=== PATIENT | female | born 1950 | race Caucasian/White ===

== ENCOUNTER → 2017-11-06 09:54 | Outpatient (CLI) | payer MEDICARE, SELFPAY ==
--- NOTE | 2017-11-06 09:57 | BI_ITS ---
MAMMOGRAPHY - BILATERAL SCREENING 3-D LAURENCE SYNTHESIS REASON FOR EXAM: Female, 67 years old. Bilateral Screening 3-D tomosynthesis PERTINENT HISTORY: No significant family history. TECHNIQUE: 2-D mammograms and 3-D Laurence synthesis of the breast (s) were performed. CAD was performed. COMPARISON: October 21, 2016. FINDINGS: The breast composition is heterogeneously dense that can obscure small breast masses. Scattered benign calcifications are seen. No dense spiculated masses or suspicious microcalcifications are identified. No architectural distortion is identified. There is no skin thickening or retraction. There has been no significant change since the prior study. BI/SCREENING MAMM (CAD), BILAT IMPRESSION: No mammographic signs of malignancy. Routine yearly mammograms recommended. ASSESSMENT CATEGORY: BIRADS Category 2: Benign. A letter regarding these results will be sent to the patient by the facility within 30 days. FOLLOW UP RECOMMENDATION: Yearly follow up mammogram recommended. (A) Approximately 10% of breast cancers are not detected by mammography. A normal mammogram should not delay biopsy of a clinically suspicious abnormality. Electronically Signed: Charli Shanks MD at 11:22 EDT , Service support ,
== END ==
PROVIDERS: Family Provider Family Medicine; PCP Family Medicine; Visit Provider Family Medicine
DX: Z12.31 Encounter for screening mammogram for malignant neoplasm of breast (principal)
CPT/HCPCS: 77063; 77067

== ENCOUNTER → 2018-01-16 12:24 | Outpatient (CLI) | payer MEDICARE, SELFPAY | PROVIDERS: Visit Provider Family Medicine | DX: R39.15 Urgency of urination (principal) | CPT/HCPCS: 87077; 87086; 87088; 87186 ==

== ENCOUNTER → 2018-02-06 13:35 | Outpatient (CLI) | payer MEDICARE, SELFPAY | PROVIDERS: Family Provider Family Medicine; PCP Family Medicine; Visit Provider Family Medicine | DX: R31.9 Hematuria, unspecified (principal) | CPT/HCPCS: 87086; 87088 ==

== ENCOUNTER → 2018-02-14 13:42 | Outpatient (CLI) | payer MEDICARE, SELFPAY ==
--- NOTE | 2018-02-14 13:43 | US_ITS ---
STUDY: ULTRASOUND TRANSVAGINAL CLINICAL: Female, 68 years old. PMB - SPOTTING X 4 DAYS TECHNIQUE: Transvaginal COMPARISON: September 27, 2016 FINDINGS: Normal uterine size measuring 4.6 x 3 x 1.6 cm in maximal craniocaudal dimension. There are no myometrial masses. Normal endometrial thickness measuring 4 mm. There is minimal fluid in the endometrial cavity. Normal uterine cervix. Right and left ovary are not visualized. There is no free fluid in the pelvis. US/Transvaginal Non- IMPRESSION: There is minimal fluid in the endometrial cavity. Ovaries are not visualized. Electronically Signed: Gee Chacko MD at 16:46 EDT , Service support ,
== END ==
PROVIDERS: Family Provider Family Medicine; PCP Family Medicine; Visit Provider Family Medicine
DX: N95.0 Postmenopausal bleeding (principal)
CPT/HCPCS: 76830

== ENCOUNTER 2018-03-17 16:41 | Emergency (ER) | payer MEDICARE, SELFPAY ==
[2018-03-17 16:42] VITALS: BP 119/68; PULSE 82; RESP 18; TEMP 37.3; O2SAT 95; BMI 28.8
[2018-03-17] MEDS: HYDROcodone Bitartrate/Apap 5/325 Tablet PO (18:36)
--- NOTE | 2018-03-17 21:15 | ED.VISSUMM ---
- ER Visit Summary Date of Service: 03/17/18 Chief Complaint: Patient presents after fall History of Present Illness: The patient is a 68 F who was on a ladder and fell backwards. She was on the second rung. She landed on her deck. She was dazed and complained of nausea. She presently complains of worsening low back pain. She denies double vision, blurred vision loss of vision. Denies ringing in her ears. She denies trouble with speech or swallowing. She denies neck pain. She denies any paresthesia, anesthesia motors. She denies nausea vomiting. She denies any bowel bladder dysfunction. She denies saddle paresthesia or anesthesia. She denies foot drop. Physical Examination: Vital signs noted and normal. There is no clinical findings of basal skull fracture. Pupils equal round reactive. Extra muscle intact. No septal deviation hematoma. No hemotympanum. No CSF otorrhea or rhinorrhea. Trachea midline. No cervical spine tenderness and full active range of motion without discomfort. Heart is regular without murmur, gallop or rub. Lungs are clear auscultation. There is no pain the patient the pelvis. There is pain elevation of the upper lumbar vertebral spinous process. GCS is 15. Patient is alert and oriented ?3. Motor is 5/5. Sensation is intact. DTRs are symmetric without clonus or Babinski. Cranial nerves II through XII are intact. Finger to nose to finger was performed adequately. Test Results: CT of the head reviewed by me interpreted by radiologist as negative for any acute pathology. Three-view x-ray of the LS spine reveals a compression fracture of L1. Suspect acute since she complains of pain in this area. Emergency Department Course and Treatment: X-ray of the LS-spine was obtained to evaluate for compression fracture. CT of the head was obtained since she was dazed based on the [place] CT head rule. Treatment Plan: Appropriate home-going instruction and pain medicine. Disposition: Discharged home with spouse Impression: 1. Closed head injury with transient altered sensorium 2. Compression fracture L1 This note was generated with [employer] software. It may contain incorrect words, spelling, and punctuation that were not noted in review of the chart prior to signing ED Disposition - Plan for ED Patient: Disposition: Home or Assisted Living Chief Complaint: Back Prescriptions: Oxycodone HCl/Acetaminophen [Percocet 5/325] 1 tab PO Q6H PRN PRN 5 Days #20 tab PRN Reason: Pain Referrals: Ilda Alvarez MD [Primary Care Provider] - 10-14 Days if not better Additional Instructions: Take Metamucil 3 times a day while you are taking the Percocet for your back pain. Otherwise, she will become constipated.
--- NOTE | 2018-03-17 21:22 | ED.VISSUMM ---
- ER Visit Summary Date of Service: 03/17/18 Chief Complaint: [] History of Present Illness: The patient is a 68 F [] Physical Examination: [] Test Results: [] Emergency Department Course and Treatment: [] Treatment Plan: [] Disposition: [] Impression: [] This note was generated with [employer] dictation software. It may contain incorrect words, spelling, and punctuation that were not noted in review of the chart prior to signing ED Disposition - Plan for ED Patient: Disposition: Home or Assisted Living Chief Complaint: Back Instructions: ED Fx Comp Vertebral Prescriptions: Oxycodone HCl/Acetaminophen [Percocet 5/325] 1 tab PO Q6H PRN PRN 5 Days #20 tab PRN Reason: Pain Referrals: Ilda Alvarez MD [Primary Care Provider] - 10-14 Days if not better Additional Instructions: Take Metamucil 3 times a day while you are taking the Percocet for your back pain. Otherwise, she will become constipated.
[2018-03-17 21:52] VITALS: RESP 16
== END 2018-03-17 21:52 | disposition home or self-care (01) ==
PROVIDERS: Emergency Provider Emergency Medicine; Family Provider Family Medicine; PCP Family Medicine
DX: S32.019A Unspecified fracture of first lumbar vertebra, initial encounter for closed fracture (principal); S09.90XA Unspecified injury of head, initial encounter; W11.XXXA Fall on and from ladder, initial encounter; Y93.9 Activity, unspecified; Y92.9 Unspecified place or not applicable; E78.00 Pure hypercholesterolemia, unspecified; Z79.82 Long term (current) use of aspirin
CPT/HCPCS: 70450; 72100; 99282

== ENCOUNTER → 2018-04-04 07:22 | Outpatient (CLI) | payer MEDICARE, SELFPAY ==
--- NOTE | 2018-04-04 10:04 | NEURO ---
NCS and/or EMG Patient Report Ordering Doctor: Ilda Alvarez DATE OF SERVICE: 04/04/18 This is a right upper extremity EMG and nerve conduction study performed on this 68-year-old female without a history of diabetes or neck pain. She has had right shoulder pain and had a cortisone injection in her right shoulder approximately 1-1/2 years ago. Subsequently, 1 month later she began to experience decreased sensation in the ulnar aspect of her right forearm and fifth digit. right upper extremity sensory and motor nerve conduction studies performed. There is very mild drop of the ulnar motor amplitude across the elbow with slowing of conduction velocity across the elbow which again is very mild. Overall the numbers are within the normal range and the distal latency is normal. The ulnar sensory responses are normal. The median motor and sensory and the radial sensory responses normal. Median and ulnar F-wave latencies are within the normal range. Right upper extremity needle electromyography is performed. Muscles evaluated included the first dorsal interosseous, abductor pollicis brevis, abductor digiti quinti, brachioradialis, biceps, triceps and deltoid muscles. Muscles in the ulnar distribution including the first dorsal interosseous and abductor digiti quinti demonstrated early recruitment with large motor units but there is no pathologic spontaneous activity. All other muscles demonstrated normal insertional activity with absence of pathologic spontaneous activity. Motor unit potential recruitment pattern and amplitude was normal in all muscles otherwise. 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 Are not active features this appears to be chronic.
== END ==
PROVIDERS: Family Provider Family Medicine; PCP Family Medicine; Visit Provider Family Medicine
DX: R20.2 Paresthesia of skin (principal)
CPT/HCPCS: 95886; 95910

== ENCOUNTER → 2018-05-22 10:53 | Outpatient (CLI) | payer MEDICARE, SELFPAY ==
--- NOTE | 2018-05-22 10:58 | BD_ITS ---
STUDY: DUAL ENERGY X-RAY ABSORPTIOMETRY / DXA REASON FOR EXAM: Female, 68 years old. The patient is postmenopausal. Loss of height. TECHNIQUE: Bone Mineral Density (BMD) measurements of lumbar spine and bilateral hips were obtained. COMPARISON: None. FINDINGS: Lumbar Spine (L1-L4): g/cm2 (0.990) / T-score (-1.5) / Z-score (0.2) Findings are suggestive of osteopenia with a moderate fracture risk. Left Femur Total: g/cm2 (0.881) / T-score (-1.0) / Z-score (0.5) Left Femoral Neck: g/cm2 (0.752) / T-score (-2.1) / Z-score (-0.4) Right Femur Total: g/cm2 (0.892) / T-score (-0.9) / Z-score (0.6) Right Femoral Neck: g/cm2 (0.845) / T-score (-1.4) / Z-score (0.3) BD/Dexa Bone Density Study IMPRESSION: The patient is considered osteopenic as outlined below according to World Javi Organization (WHO) criteria with a moderate fracture risk. Reference Information: The T-score is the number of standard deviations above or below the standard which is normal for young adults at their peak bone mineral density. The World Health Organization (WHO) interprets the T-scores as follows: Above -1 Normal bone density Between -1 and -2.5 Osteopenia Equal to / or below -2.5 Osteoporosis As a practical clinical guideline, osteopenia may be graded as follows: Mild -1 through -1.5 Moderate -1.6 through -2.0 Severe -2.1 through -2.4 The Z-score is the number of standard deviations above or below age-matched controls. A Z-score of less than -1.5 would be considered abnormal. References: 1. NIH Osteoporosis and Related Bone Diseases http://www.osteo.org 2. International Society for Clinical Densitometry http://www.iscd.org 3. National Osteoporosis Foundation http://www.nof.org Electronically Signed: Mitchell Samuel MD at 9:24 EST Tel [phone], Service support ,
== END ==
PROVIDERS: Family Provider Family Medicine; PCP Family Medicine; Referring Provider Family Medicine; Visit Provider Family Medicine
DX: S32.000A Wedge compression fracture of unspecified lumbar vertebra, initial encounter for closed fracture (principal)
CPT/HCPCS: 77080

== ENCOUNTER → 2018-06-12 15:53 | Outpatient (CLI) | payer MEDICARE, SELFPAY ==
--- OUTSIDE RECORDS SUMMARY | 2018-08-08 08:53 | XMS RPT_ITS ---
:1950 Author Organization [facility] Care Team Providers Name Role Phone Ilda Alvarez Attending Unavailable Jovi, Chris Primary Care Unavailable Jolliff, Ilda Attending Unavailable Reddy, Franc Attending Unavailable Reddy, Franc Referring Unavailable Jolliff, Ilda Primary Care Unavailable Reddy, Franc Attending Unavailable Jolliff, Ilda Primary Care Unavailable Jolliff, Ilda Primary Care Unavailable Kimball, Pankaj Attending Unavailable Jolliff, Ilda Attending Unavailable Jolliff, Ilda Referring Unavailable Jolliff, Ilda Primary Care Unavailable Jolliff, Ilda Attending Unavailable Jolliff, Ilda Referring Unavailable Jolliff, Ilda Primary Care Unavailable Tickton, Nikki Attending Unavailable Tickton, Nikki Referring Unavailable Jolliff, Ilda Primary Care Unavailable Eliazar, Martin Attending Unavailable Jolliff, Ilda Referring Unavailable Eliazar, Hollywood Attending Unavailable Jovi, Chris Referring Unavailable Jovi, Chris Primary Care Unavailable PROBLEMS PROBLEMS DATE TYPE CONDITION / CODE ATTENDING STATUS SOURCE Unknown Z98.890 - Other specified Eliazar, Hollywood Active [facility] postprocedural states / Community Z98.890(ICD-10) Hospital Repository Unknown R07.9 - Chest pain, Eliazar, Hollywood Active [facility] unspecified / Community R07.9(ICD-10) Hospital Repository Unknown E78.5 - Hyperlipidemia, Eliazar, Martin Active [facility] unspecified / Community E78.5(ICD-10) Hospital Repository Unknown S32.000A - Wedge Jochon, Ilda Active [facility] compression fracture of Community unspecified lumbar Hospital vertebra, initial Repository encounter for closed fracture / S32.000A(ICD-10) Unknown R20.2 - Paresthesia of Ilda Alvarez Active [place] 8 skin / R20.2(ICD-10) [facility]ly [facility] Hospital Repository Unknown S32.010A - Wedge Kimball, Pankaj Active [facility] 8 compression fracture of Community first lumbar vertebra, Hospital initial encounter for Repository closed fracture / S32.010A(ICD-10) Unknown R39.15 - Urgency of Ilda Alvarez Active [facility] 8 urination / Community R39.15(ICD-10) Hospital Repository Unknown E78.00 - Pure Eliazar, Hollywood Active [facility] 7 hypercholesterolemia, Community unspecified / Hospital E78.00(ICD-10) Repository Unknown E78.0 - Pure Eliazar, Martin Active [facility] 7 hypercholesterolemia / Community E78.0(ICD-10) Hospital Repository PROCEDURES PROCEDURES No Procedure Records FoundRESULTS RESULTS CARDIOLOGY VISIT Observed: 06/19/2018 Status: F Source: [facility] REPORT 10:58 AM [facility] [address] [place] [address] OFFICE VISIT Date of Service: 06/19/18 MR#: [id number] Acct: [id number] Name: VENECIA KAUR Rep #: [id number] : 1950 Provider: Martin Perea MD Age/Sex: 68/F Location: [facility] Status: Signed HPI [facility] Chief Complaint: Follow up Details: VENECIA KAUR, is a 68 F who presents to the office today for a follow-up visit. She is a lady with a history of aortic valve disease with aortic valve replacement in 2009 with a Fariba Garza bovine pericardial valve. She has been doing quite well denying any chest pain or shortness breath or paroxysmal nocturnal dyspnea pedal edema she did relate that a few weeks ago she had a drink of water been down and had significant chest discomfort in the epigastrium. She has not had a recurrence of the above. She has had no dizziness or diaphoresis no near syncope or syncope. Her physical exam today demonstrates clear lung dyer regular rate and rhythm no pedal edema a soft 1/6 systolic murmur noted left sternal border. Intake Vital Signs06/19/18 Height 4 ft 9 in 06/19/18 Weight: 141 lb 06/19/18 Body Mass Index (BMI) 30.4 06/19/18 Blood Pressure 122/78 H 06/19/18 Blood Pressure Location Lt brachial Intake Visit Reasons: 1 Y [employer] Applications Specialist Required: No Accompanied by: none Is patient in pain?: No Allergies tomatoes Allergy (Severe, Uncoded 03/17/18 16:44) unknown Medications ascorbic acid (vitamin C) 1,000 mg tablet 1 g PO QDAY tab 06/20/17 [History Confirmed 06/19/18] aspirin 81 mg tablet,delayed release 81 mg PO QDAY 06/20/17 [History Confirmed 06/19/18] calcium polycarbophil 625 mg tablet 1,250 mg PO QDAY 06/20/17 [History Confirmed 06/19/18] cranberry 400 mg capsule 400 mg PO QDAY 06/20/17 [History Confirmed 06/19/18] multivitamin tablet 1 tab PO QDAY 06/20/17 [History Confirmed 06/19/18] vitamin B complex capsule 1 cap PO QDAY 06/20/17 [History Confirmed 06/19/18] vitamin E (dl, acetate) 1,000 unit capsule 1,000 unit PO QDAY 06/20/17 [History Confirmed 06/19/18] garlic 5,000 mcg tablet 5 mg PO QDAY 06/22/17 [History Confirmed 06/19/18] cinnamon bark 500 mg capsule mg PO DAILY cap 06/19/18 [History Confirmed 06/19/18] [facility] Medical History Hyperlipidemia (Chronic) Ascending aortic aneurysm (Chronic) history of aortic stenosis (Chronic) Surgical History H/O breast biopsy (Resolved) History of appendectomy (Resolved) aortic valve replacement (Chronic) Family History Father No problems noted. Mother , of CHF Diabetes CAD (coronary artery disease) Brother Hx of deep venous thrombosis Social History Smoking Status: Never smoker alcohol intake: never ROS Const Const: Negative for fatigue, weakness, night sweats, excessive sweating, frequent falls, headache(s) or daytime sleepiness Eyes Eyes: Negative for loss of peripheral vision, transient loss of vision, blind spots, double vision or blurry vision ENT ENT: Negative for headache(s), dizziness, balance problems, Nosebleed/epistaxis, tongue swelling or lip swelling Cardio Chest Pain: No Palpitations: No Edema: None Muscle aches with walking: None Resp Respiratory: Negative for SOB at rest, SOB orthopnea\SOB lying down, Cough, paroxysmal nocturnal dyspnea or SOB with activity GI GI: Negative nausea, vomiting, heartburn, black,tarry stools or bright, red blood in stools : Negative for hematuria Musc Musc: Negative for balance problems, muscle aches/ myalgia, muscle weakness or joint pain Skin Skin: Negative non-healing lesions, unusual bruising or rash Neuro Neuro: Negative for weakness, frequent falls, headache(s), double vision, dizziness, lightheadedness, orthostatic symptoms, blurry vision or lack of coordination Santhosh Hematologic/Lymphatic: Negative for easy bruising or easy bleeding Endo Endo: Negative for fatigue, excessive sweating, cold intolerance, heat intolerance, increased thirst/drinking or hair loss Psych Psych: Negative for anxiety or depression Allergy Allergy/Immunology: Negative for throat swelling, Negative for tongue swelling, Negative for hives, Negative for rash, Negative for lip swelling Cardiology Exam Const Appearance: cooperative, healthy appearing, well developed, well groomed and no acute distress Nutritional Appearance: well nourished and average body habitus Orientation: alert, awake and oriented x3 Head Head: normal to inspection, normocephalic and atraumatic Ears: hearing grossly normal bilaterally and external ears normal Nose: external nose normal, nasal mucous membranes and turbinates normal, nares normal, septum normal, no nasal discharge Face and Sinus: face symmetric Mouth: oral mucosae normal, tongue normal, oropharynx normal and moist mucous membranes Teeth and gingiva: dentition normal Throat: posterior oropharynx normal, tonsils normal and uvula midline Eyes General: appearance normal, both eyes and all related structures Eyelids: eyelids normal Conjunctivae: conjunctivae normal Pupils: PERRL, normal by confrontation and accommodation normal EOM: EOM intact bilaterally Neck Neck: normal visual inspection, trachea midline and no JVD JVD: +5 Carotids: normal carotid upstroke and bounding pulses Chest Chest inspection: normal inspection of the chest, symmetric chest movement and normal respiratory effort Auscultation: Bilateral: Clear to Auscultation Cardio Palpation: normal PMI Rate: regular rate Rhythm: regular rhythm Heart sounds: S1 normal, S2 normal and normal, physiologic split S2; negative rub, gallop or murmur Murmur: Grade 1/6 and ZAHRA loudest primary aortic area GI GI: normal to inspection, soft, no hepatosplenomegaly and bowel sounds present Neuro General: alert, awake, oriented x3, no focal sensory deficit, gait normal and moves all extremities Skin Skin: no rashes or lesions noted Extremities Pulses: Normal: Right Femoral Pulse, Left Femoral Pulse, Right Dorsalis Pedis Pulse, Left Dorsalis Pedis Pulse, Right Posterior Tibial Pulse, Left Posterior Tibial Pulse, Right Radial Pulse, Left Radial Pulse Lower Extremity Edema: None: Bilateral Musculoskel Musculoskeletal: No joint tenderness Psych Psychological: normal affect Assessment AND Plan 1. aortic valve replacement 08/25/09, minimally invasive AVR with 21 mm Fariba-Garza bovine pericardial aortic valve at [facility] Plan She is status post aortic valve replacement with a #21 bioprosthetic valve. The plan is to continue antibiotic prophylaxis. I would also recommend that we obtain an echocardiograms and stress echocardiogram to assess the stability of her valve as well as exclude any angina. 2. Hyperlipidemia E78.5 Plan She does have a history of hyperlipidemia. She has been controlling the above with diet. Recent lipid profile has not been obtained. As you know she did have some myalgias with some of her medications. 3. Chest pain R07.9 Plan She has had some chest pain. It is not clear what the above is secondary to. Occasionally it does sound like reflux however she has had it more frequently and it may be appropriate to exclude ischemia before treating her for reflux. Stress myocardial perfusion test will therefore be ordered. 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) Coding Level of Care Code Off vis,est,level 4 Diagnoses aortic valve replacement Hyperlipidemia E78.5 Chest pain R07.9 Coding Level of Care Code Off vis,est,level 4 Diagnoses aortic valve replacement Hyperlipidemia E78.5 Chest pain R07.9 06/19/18 1058 <Electronically signed by Martin Perea MD> Date Martin Perea MD Cosigner Signature: Date (if applicable) CC: Ilda Alvarez MD Observed: 06/12/2018 Status: F Source: [facility] CULTURE, URINE 1:40 PM [facility] Urine Culture ORGANISM 1: Escherichia coli [place] Count >100,000 Escherichia coli: REACTION Amoxacillin/Clavulanic Acid $ 4 S Ampicillin $ >=32 R Ampicillin/Sulbactam $ 16 I Cefazolin $ <=4 S Cefepime $ <=1 S Ceftriaxone $ <=1 S Ciprofloxacin $ <=0.25 S ESBL - Ertapenim $$$ <=0.5 S Gentamicin $ <=1 S Imipenem *NF <=0.25 S Levofloxacin $ <=0.12 S Nitrofurantoin $ <=16 S Piperacillin/Tazobactam $$ <=4 S Tobramycin $ <=1 S Trimethoprim/Sulfametho $ <=20 S (NF) indicates non-formulary drug at [facility]. Approval by Infectious Disease Specialist required before non-formulary drugs may be ordered and/or dispensed. Performed By: #### M100.0650 #### [facility] [address] [place], [address] DEXA BONE DENSITY Observed: 05/22/2018 Status: F Source: [facility] STUDY 10:56 AM [facility] Imaging Services [address] [place] [address] Dexa Bone Density Study MR#: [id number] Acct: [id number] Name: VENECIA KAUR Rep #: [id number] : 1950 F 68 From: Mitchell Samuel MD PCP: Ilda Alvarez MD Status: REG CLI Study: Dexa Bone Density Study Date of Exam: 05/22/18 Exam# [id number] Ordering Dr: Ilda Alvarez MD STUDY: DUAL ENERGY X-RAY ABSORPTIOMETRY / DXA REASON FOR EXAM: Female, 68 years old. The patient is postmenopausal. Loss of height. TECHNIQUE: Bone Mineral Density (BMD) measurements of lumbar spine and bilateral hips were obtained. COMPARISON: None. FINDINGS: Lumbar Spine (L1-L4): g/cm2 (0.990) / T-score (-1.5) / Z-score (0.2) Findings are suggestive of osteopenia with a moderate fracture risk. Left Femur Total: g/cm2 (0.881) / T-score (-1.0) / Z- score (0.5) Left Femoral Neck: g/cm2 (0.752) / T-score (-2.1) / Z- score (-0.4) Right Femur Total: g/cm2 (0.892) / T-score (-0.9) / Z- score (0.6) Right Femoral Neck: g/cm2 (0.845) / T-score (-1.4) / Z-score (0.3) BD/Dexa Bone Density Study IMPRESSION: The patient is considered osteopenic as outlined below according to World Javi Organization (WHO) criteria with a moderate fracture risk. Reference Information: The T-score is the number of standard deviations above or below the standard which is normal for young adults at their peak bone mineral density. The World Health Organization (WHO) interprets the T-scores as follows: Above -1 Normal bone density Between -1 and -2.5 Osteopenia Equal to / or below -2.5 Osteoporosis As a practical clinical guideline, osteopenia may be graded as follows: Mild -1 through -1.5 Moderate -1.6 through -2.0 Severe -2.1 through -2.4 The Z-score is the number of standard deviations above or below age-matched controls. A Z-score of less than -1.5 would be considered abnormal. References: 1. NIH Osteoporosis and Related Bone Diseases http://www.osteo.org 2. International Society for Clinical Densitometry http://www.iscd.org 3. National Osteoporosis Foundation http://www.nof.org Electronically Signed: Mitchell Samuel MD at 9:24 EST Tel [phone], Service support , CC: Ilda Alvarez MD Lcac Operator: Signed NCS AND/OR EMG Observed: 04/04/2018 Status: F Source: [facility] PATIENT 10:21 AM [facility] Pulmonary Services/Neurology [address] [place] [id number] MR#: [id number] Acct: [id number] Name: VENECIA KAUR Rep #: [id number] : 1950 68 From: Gee Ernandez MD Referring Dr: Ilda Alvarez MD Status: REG CLI Ordering Dr: Date: Location: [facility] Sex: F C NCS and/or EMG Patient Report Ordering Doctor: Ilda Alvarez DATE OF SERVICE: 04/04/18 This is a right upper extremity EMG and nerve conduction study performed on this 68-year-old female without a history of diabetes or neck pain. She has had right shoulder pain and had a cortisone injection in her right shoulder approximately 1- 1/2 years ago. Subsequently, 1 month later she began to experience decreased sensation in the ulnar aspect of her right forearm and fifth digit. right upper extremity sensory and motor nerve conduction studies performed. There is very mild drop of the ulnar motor amplitude across the elbow with slowing of conduction velocity across the elbow which again is very mild. Overall the numbers are within the normal range and the distal latency is normal. The ulnar sensory responses are normal. The median motor and sensory and the radial sensory responses normal. Median and ulnar F-wave latencies are within the normal range. Right upper extremity needle electromyography is performed. Muscles evaluated included the first dorsal interosseous, abductor pollicis brevis, abductor digiti quinti, brachioradialis, biceps, triceps and deltoid muscles. Muscles in the ulnar distribution including the first dorsal interosseous and abductor digiti quinti demonstrated early recruitment with large motor units but there is no pathologic spontaneous activity. All other muscles demonstrated normal insertional activity with absence of pathologic spontaneous activity. Motor unit potential recruitment pattern and amplitude was normal in all muscles otherwise. 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 Are not active features this appears to be chronic. 04/04/18 1021 <Electronically signed by Gee Ernandez MD> Date Gee Ernandez MD CC: Ilda Alvarez MD; Gee Ernandez MD Date Dictated: 04/04/18 1004 Date Transcribed: 04/04/18 1004 Lcac Operator: DEE Signed EMERGENCY DEPARTMENT Observed: 03/17/2018 Status: F Source: [facility] SUMMARY 9:23 PM [facility] Medical Records Department [address] [place] [address] Emergency Department Summary 03/17/182121 MR#: [id number] Acct: [id number] Name: VENECIA KAUR Rep #: [id number] : 1950 68 From: Pankaj Kimball MD PCP: Ilda Alvarez MD Status: REG ER - ER Visit Summary Date of Service: 03/17/18 Chief Complaint: [] History of Present Illness: The patient is a 68 F [] Physical Examination: [] Test Results: [] Emergency Department Course and Treatment: [] Treatment Plan: [] Disposition: [] Impression: [] This note was generated with LoveByteation software. It may contain incorrect words, spelling, and punctuation that were not noted in review of the chart prior to signing ED Disposition - Plan for ED Patient: Disposition: Home or Assisted Living Chief Complaint: Back Instructions: ED Fx Comp Vertebral Prescriptions: Oxycodone HCl/Acetaminophen [Percocet 5/325] 1 tab PO Q6H PRN PRN 5 Days #20 tab PRN Reason: Pain Referrals: Ilda Alvarez MD [Primary Care Provider] - 10-14 Days if not better Additional Instructions: Take Metamucil 3 times a day while you are taking the Percocet for your back pain. Otherwise, she will become constipated. What to do if you have Problems For any increased pain, shortness of breath, bleeding, nausea or vomiting, chest pain, or any unexpected problems, contact your Primary Care Provider. Call [facility] ([phone]) or report to the closest Emergency Room. Call 911 if necessary. 03/17/182122 <Electronically signed by Pankaj Kimball MD> Date Pankaj Kimball MD Cosigner Signature (If Indicated): Date CC: Ilda Alvarez MD EMERGENCY DEPARTMENT Observed: 03/17/2018 Status: F Source: [facility] SUMMARY 9:22 PM [facility] Medical Records Department [address] [place] [address] Emergency Department Summary 03/17/185 MR#: [id number] Acct: [id number] Name: VENECIA AKUR Rep #: [id number] : 1950 68 From: Pankaj Kimball MD PCP: Ilda Alvarez MD Status: REG ER - ER Visit Summary Date of Service: 03/17/18 Chief Complaint: Patient presents after fall History of Present Illness: The patient is a 68 F who was on a ladder and fell backwards. She was on the second rung. She landed on her deck. She was dazed and complained of nausea. She presently complains of worsening low back pain. She denies double vision, blurred vision loss of vision. Denies ringing in her ears. She denies trouble with speech or swallowing. She denies neck pain. She denies any paresthesia, anesthesia motors. She denies nausea vomiting. She denies any bowel bladder dysfunction. She denies saddle paresthesia or anesthesia. She denies foot drop. Physical Examination: Vital signs noted and normal. There is no clinical findings of basal skull fracture. Pupils equal round reactive. Extra muscle intact. No septal deviation hematoma. No hemotympanum. No CSF otorrhea or rhinorrhea. Trachea midline. No cervical spine tenderness and full active range of motion without discomfort. Heart is regular without murmur, gallop or rub. Lungs are clear auscultation. There is no pain the patient the pelvis. There is pain elevation of the upper lumbar vertebral spinous process. GCS is 15. Patient is alert and oriented 3. Motor is 5/5. Sensation is intact. DTRs are symmetric without clonus or Babinski. Cranial nerves II through XII are intact. Finger to nose to finger was performed adequately. Test Results: CT of the head reviewed by me interpreted by radiologist as negative for any acute pathology. Three-view x-ray of the LS spine reveals a compression fracture of L1. Suspect acute since she complains of pain in this area. Emergency Department Course and Treatment: X-ray of the LS- spine was obtained to evaluate for compression fracture. CT of the head was obtained since she was dazed based on the Latvian CT head rule. Treatment Plan: Appropriate home-going instruction and pain medicine. Disposition: Discharged home with spouse Impression: 1. Closed head injury with transient altered sensorium 2. Compression fracture L1 This note was generated with DashThis dictation software. It may contain incorrect words, spelling, and punctuation that were not noted in review of the chart prior to signing ED Disposition - Plan for ED Patient: Disposition: Home or Assisted Living Chief Complaint: Back Prescriptions: Oxycodone HCl/Acetaminophen [Percocet 5/325] 1 tab PO Q6H PRN PRN 5 Days #20 tab PRN Reason: Pain Referrals: Ilda Alvarez MD [Primary Care Provider] - 10-14 Days if not better Additional Instructions: Take Metamucil 3 times a day while you are taking the Percocet for your back pain. Otherwise, she will become constipated. What to do if you have Problems For any increased pain, shortness of breath, bleeding, nausea or vomiting, chest pain, or any unexpected problems, contact your Primary Care Provider. Call [facility] ([phone]) or report to the closest Emergency Room. Call 911 if necessary. 03/17/182121 <Electronically signed by Pankaj Kimball MD> Date Pankaj Kimball MD Cosigner Signature (If Indicated): Date CC: Ilda Alvarez MD BRAIN/HEAD WITHOUT Observed: 03/17/2018 Status: F Source: [facility] CONTRAST 7:56 PM [facility] Imaging Services [address] [place] [address] Brain/Head without Contrast MR#: [id number] Acct: [id number] Name: VENECIA KAUR Rep #: [id number] : 1950 F 68 From: Darin Desouza MD PCP: Ilda Alvarez MD Status: REG ER Study: Brain/Head without Contrast Date of Exam: 03/17/18 Exam# [id number] Ordering Dr: Pankaj Kimball MD STUDY: CT BRAIN WITHOUT CONTRAST REASON FOR EXAM: Female, 68 years old. Trauma. Fall. RADIATION DOSAGE (If Supplied By Facility): CTDIvol = ( 44.99 ) mGy, DLP = ( 745.49 ) mGycm TECHNIQUE: Transaxial CT imaging of the brain was performed without administration of intravenous contrast material. Individualized dose optimization techniques were used for this CT. COMPARISON: None. FINDINGS: Normal soft tissue structures. Normal calvarium. Normal size ventricles and extra-axial spaces for the patient's age. Normal white matter tracts of the cerebral hemispheres. Normal basal ganglia and thalami. Normal brainstem. Normal cerebellum. There is no intracranial hemorrhage. There are no findings of an acute ischemic infarction. Normal visualized paranasal sinuses. CT/Brain/Head without Contrast IMPRESSION: Normal unenhanced CT scan of the brain. Electronically Signed: Darin Desouza MD at 20:52 EDT , Service support , CC: Ilda Alvarez MD; Pankaj Kimball MD Lcac Operator: Signed LUMBAR SPINE 2 OR 3 Observed: 03/17/2018 Status: F Source: [facility] VIEWS 6:31 PM [facility] Imaging Services [address] [place] [address] Lumbar Spine 2 or 3 Views MR#: [id number] Acct: [id number] Name: VENECIA KAUR Rep #: [id number] : 1950 F 68 From: Darin Desouza MD PCP: Ilda Alvarez MD Status: REG ER Study: Lumbar Spine 2 or 3 Views Date of Exam: 03/17/18 Exam# [id number] Ordering Dr: Pankaj Kimball MD STUDY: X-RAY - LUMBAR SPINE REASON FOR EXAM: Female, 68 years old. Fall. TECHNIQUE: 3 view(s) of the lumbar spine were obtained. COMPARISON: None FINDINGS: Normal lumbar lordosis. There is no substantial scoliosis. There is a normal alignment of the vertebrae. Mild compression fracture involving the superior aspect of L1, of indeterminate age. No other compression fractures. Mild multilevel degenerative changes. The soft tissue structures are unremarkable. RAD/Lumbar Spine 2 or 3 Views IMPRESSION: Mild compression fracture of the superior endplate of L1 of indeterminate age. Electronically Signed: Darin Desouza MD at 19:58 EDT , Service support , CC: Ilda Alvarez MD; Pankaj Kimball MD Lcac Operator: Signed TRANSVAGINAL Observed: 02/14/2018 Status: F Source: [facility] NON- 1:43 PM [facility] Imaging Services [address] [place] [address] Transvaginal Non- MR#: [id number] Acct: [id number] Name: VENECIA KAUR Rep #: [id number] : 1950 F 68 From: Gee Chacko MD PCP: Ilda Alvarez MD Status: REG CLI Study: Transvaginal Non- Date of Exam: 02/14/18 Exam# [id number] Ordering Dr: Franc Reddy MD STUDY: ULTRASOUND TRANSVAGINAL CLINICAL: Female, 68 years old. PMB - SPOTTING X 4 DAYS TECHNIQUE: Transvaginal COMPARISON: September 27, 2016 FINDINGS: Normal uterine size measuring 4.6 x 3 x 1.6 cm in maximal craniocaudal dimension. There are no myometrial masses. Normal endometrial thickness measuring 4 mm. There is minimal fluid in the endometrial cavity. Normal uterine cervix. Right and left ovary are not visualized. There is no free fluid in the pelvis. US/Transvaginal Non- IMPRESSION: There is minimal fluid in the endometrial cavity. Ovaries are not visualized. Electronically Signed: Gee Chacko MD at 16:46 EDT , Service support , CC: Ilda Alvarez MD; Franc Reddy MD Lcac Operator: Signed Observed: 02/06/2018 Status: F Source: SIN CULTURE, URINE 1:39 PM [facility] Order Date: 02/06/18 Order Info: 630-4 - CUUR Urine Culture Below infection level. ORGANISM 1: Mixed Gram Positive Organisms Berlin Count <1000 Performed By: #### M100.0650 #### [facility] [address] [place], [address] Observed: 01/16/2018 Status: F Source: SIN CULTURE, URINE 12:25 PM [facility] Order Date: 01/16/18 Order Info: 630-4 - CUUR Specimen Source: clean catch Urine Culture ORGANISM 1: Enterococcus faecalis Berlin Count 50,000-80,000 Enterococcus faecalis: REACTION Ampicillin $ <=2 S Benzylpenicillin NF 2 S Ciprofloxacin $ 1 S Gentamicin SYN-S S Levofloxacin $ 2 S Linezolid $$$$ 2 S Nitrofurantoin $ 32 S Streptomycin $ SYN-S S Tetracycline NF >=16 R Vancomycin $ 1 S (NF) indicates non-formulary drug at [facility]. Approval by Infectious Disease Specialist required before non-formulary drugs may be ordered and/or dispensed. * CLSI guidelines does not recommend testing of cephalosporins. This interpretation is deduced from Beta-lactam/penicillin results. Performed By: #### M100.0650 #### [facility] [address] [place], [address] SCREENING MAMM (CAD), Observed: 11/06/2017 Status: F Source: SIN BILAT 9:57 AM [facility] Imaging Services [address] [place] [address] SCREENING MAMM (CAD), BILAT MR#: [id number] Acct: [id number] Name: VENECIA KAUR Rep #: [id number] : 1950 F 67 From: Charli Shanks MD PCP: Ilda Alvarez MD Status: REG CLI Study: SCREENING MAMM (CAD), BILAT Date of Exam: 11/06/17 Exam# [id number] Ordering Dr: Ilda Alvarez MD MAMMOGRAPHY - BILATERAL SCREENING 3-D KRUNAL SYNTHESIS REASON FOR EXAM: Female, 67 years old. Bilateral Screening 3-D tomosynthesis PERTINENT HISTORY: No significant family history. TECHNIQUE: 2-D mammograms and 3-D Krunal synthesis of the breast (s) were performed. CAD was performed. COMPARISON: October 21, 2016. FINDINGS: The breast composition is heterogeneously dense that can obscure small breast masses. Scattered benign calcifications are seen. No dense spiculated masses or suspicious microcalcifications are identified. No architectural distortion is identified. There is no skin thickening or retraction. There has been no significant change since the prior study. BI/SCREENING MAMM (CAD), BILAT IMPRESSION: No mammographic signs of malignancy. Routine yearly mammograms recommended. ASSESSMENT CATEGORY: BIRADS Category 2: Benign. A letter regarding these results will be sent to the patient by the facility within 30 days. FOLLOW UP RECOMMENDATION: Yearly follow up mammogram recommended. (A) Approximately 10% of breast cancers are not detected by mammography. A normal mammogram should not delay biopsy of a clinically suspicious abnormality. Electronically Signed: Charli Shanks MD at 11:22 EDT , Service support , CC: Ilda Alvarez MD Lcac Operator: Signed CARDIOLOGY VISIT Observed: 08/29/2017 Status: F Source: [place] REPORT 11:13 AM [facility] [address] [place] [address] OFFICE VISIT Date of Service: 06/22/17 MR#: [id number] Acct: [id number] Name: VENECIA KAUR Rep #: [id number] : 1950 Provider: Martin Perea MD Age/Sex: 67/F Location: [facility] Status: Signed HPI 6 M FU: Chief Complaint: Follow-up Details: VENECIA KAUR, is a 67 F who presents to the office today for cardiovascular follow-up visit. As you know she has a history of aortic valve disease status post aortic valve replacement in 2009 for aortic stenosis. She has been doing quite well denying any chest pain or shortness breath or paroxysmal nocturnal dyspnea or pedal edema she has not had any dizziness or diaphoresis near syncope or syncope she has been compliant with her home medications. You do remember that her last echocardiogram in 2016 demonstrated preserved ejection fraction of 60% normal pulmonary artery pressures in a stable bioprosthetic aortic valve. Her physical exam today demonstrates clear lung dyer regular rate and rhythm 2/6 systolic murmur noted left sternal border and no pedal edema. Intake Vital Signs06/22/17 Height 4 ft 11 in 06/22/17 Weight: 144 lb Intake Visit Reasons: 6 M FU Allergies tomatoes Allergy (Severe, Uncoded 06/20/17 19:36) unknown Medications ascorbic acid (vitamin C) 1,000 mg tablet 1 g PO QDAY tab 06/20/17 [History Confirmed 06/20/17] aspirin 81 mg tablet,delayed release 81 mg PO QDAY 06/20/17 [History Confirmed 06/20/17] calcium polycarbophil 625 mg tablet 1,250 mg PO QDAY 06/20/17 [History Confirmed 06/20/17] cranberry 400 mg capsule 400 mg PO QDAY 06/20/17 [History Confirmed 06/20/17] multivitamin tablet 1 tab PO QDAY 06/20/17 [History Confirmed 06/20/17] vitamin B complex capsule 1 cap PO QDAY 06/20/17 [History Confirmed 06/20/17] vitamin E (dl, acetate) 1,000 unit capsule 1,000 unit PO QDAY 06/20/17 [History Confirmed 06/20/17] garlic 5,000 mcg tablet 5 mg PO QDAY 06/22/17 [History Confirmed 06/22/17] Ejection fraction %: 60 to 64 [facility] Medical History Ascending aortic aneurysm (Chronic) history of aortic stenosis (Chronic) aortic valve replacement (Chronic) Hyperlipidemia (Chronic) Family History Father No problems noted. Mother , of CHF Diabetes CAD (coronary artery disease) Brother Hx of deep venous thrombosis Social History Smoking Status: Never smoker ROS Const Const: Negative body ache, fever(s), chills, night sweats, daytime sleepiness, difficulty sleeping, weight gain, weight loss, increased appetite, poor appetite, anorexia or other ENT ENT: Negative balance problems Cardio Chest Pain: No Palpitations: Yes Edema: None Muscle aches with walking: None Resp Respiratory: Negative SOB with activity, SOB at rest, SOB orthopnea\SOB lying down, Coughing up blood/hemoptysis, chest congestion, pain on inspiration, snoring, stridor, wheezing, crackles, paroxysmal nocturnal dyspnea or other GI GI: Negative nausea, vomiting, heartburn, constipation, belching, bloating, cramping, vomiting blood/hematemesis, bright, red blood in stools, black,tarry stools, loose stools, Difficulty Swallowing or other Musc Musc: Negative muscle aches/ myalgia, muscle weakness, joint pain or balance problems Cardiology Exam Const Appearance: cooperative, healthy appearing, well developed, well groomed and no acute distress Nutritional Appearance: well nourished and average body habitus Orientation: alert, awake and oriented x3 Head Head: normal to inspection, normocephalic and atraumatic Ears: hearing grossly normal bilaterally and external ears normal Nose: external nose normal, nasal mucous membranes and turbinates normal, nares normal, septum normal, no nasal discharge Face and Sinus: face symmetric Mouth: oral mucosae normal, tongue normal, oropharynx normal and moist mucous membranes Teeth and gingiva: dentition normal Throat: posterior oropharynx normal, tonsils normal and uvula midline Eyes General: appearance normal, both eyes and all related structures Eyelids: eyelids normal Conjunctivae: conjunctivae normal Pupils: PERRL, normal by confrontation and accommodation normal EOM: EOM intact bilaterally Neck Neck: normal visual inspection, trachea midline and no JVD JVD: +5 Carotids: normal carotid upstroke and bounding pulses Chest Chest inspection: normal inspection of the chest, symmetric chest movement and normal respiratory effort Auscultation: Bilateral: Clear to Auscultation Cardio Palpation: normal PMI Rate: regular rate Rhythm: regular rhythm Heart sounds: S1 normal, S2 normal and murmur Murmur: Grade 2/6, early systolic, crescendo-decrescendo and LLSB GI GI: normal to inspection, soft, no hepatosplenomegaly and bowel sounds present Neuro General: alert, awake, oriented x3, no focal sensory deficit, gait normal and moves all extremities Skin Skin: no rashes or lesions noted Extremities Pulses: Normal: Right Femoral Pulse, Left Femoral Pulse, Right Dorsalis Pedis Pulse, Left Dorsalis Pedis Pulse, Right Posterior Tibial Pulse, Left Posterior Tibial Pulse, Right Radial Pulse, Left Radial Pulse Lower Extremity Edema: None: Bilateral Musculoskel Musculoskeletal: No joint tenderness Psych Psychological: normal affect Assessment AND Plan 1. aortic valve replacement Plan She is status post aortic valve replacement and continues to do well with a recent echocardiogram demonstrating adequate functioning of the above. She will continue with antibiotic prophylaxis as previously described. 2. Pure hypercholesterolemia E78.00; E78.00; E78.00; E78.0 Plan You do remember that she was having a lot of muscle aches with the statins and so this was discontinued. She appears to have done better with this and her most recent lipid profile however in December demonstrated total cholesterol 269 and LDL of 175 and an HDL of 59. She has been using nutraceuticals to help with this. 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) 08/29/17 1113 <Electronically signed by Martin Perea MD> Date Martin Perea MD Cosigner Signature: Date (if applicable) CC: Ilda Alvarez MD ALLERGIES ALLERGIES DATE TYPE / CODE NAME / CODE REACTION SEVERITY SOURCE 03/17/2018 Miscellaneous tomatoes Unknown SV Sin Allergy[facility][id number][facility] [place] Repository ENCOUNTERS ENCOUNTERS ADMIT/DISCHARGE ACCOUNT ADMITTING ENCOUNTER LOCATION SOURCE NUMBER CLASS 06/19/2018/ [id number] Ambulatory BMSBuilding:B [place] 8 8 [place] [place] 06/12/2018 [id number] Ambulatory Sin [place] 9 [facility] ing:LABSPEC Repository 05/22/2018 [id number] Ambulatory [place] 3 [facility] ing:OPBD Repository 04/04/2018 [id number] Ambulatory [place] 0 [facility] ing:PSN Repository 03/17/2018/ [id number] Emergency Sin [place] 8 2 [facility] ing:ED Repository 02/14/2018 [id number] Ambulatory [place] 3 [facility] ing:OPUS Repository 02/06/2018 [id number] Ambulatory [place] 2 [facility] ing:MTLAB Repository 01/16/2018 [id number] Ambulatory [place] 2 [facility] ing:LABSPEC Repository 11/06/2017 [id number] Ambulatory [place] 1 [facility] ing:OPBI Repository 06/22/2017/ [id number] Ambulatory BMSBuilding:B [place] 7 9 [facility] Repository PAYERS PAYERS ENCOUNTER GUARANTOR PAYER SUBSCRIBER SOURCE 06/19/2018 TREVER Marshall Primary VENECIA Mcclendon Sin [id number] Insurance:IMELDA LINCNDOB: [facility] [id number] hospital Number: Repository [id number]: 330 [id number] [phone] () e Date:0154-64-15BF [address], [place] [address]EU: 06/19/2018 Secondary NOT GIVENUNK [place] Insurance:SELF PAY [facility] Number: Effective Repository Date:2018-06-19 06/12/2018 TREVER Marshall Primary VENECIA Danelle Sin [id number] Insurance:IMELDA LINCOLNDOB: [facility] [id number] hospital Number: Repository [id number]: 330 [id number] [phone] () e Date:8024-78-86DU [address], [place] [address]MH: 06/12/2018 Secondary NOT GIVENUNK [place] Insurance:SELF PAY [facility] Number: Effective Repository Date:2018-06-12 05/22/2018 TREVER D Primary VENECIA Danelle [place] [id number] Insurance:IMELDA LINCNDOB: [facility] [id number] and Clark Specialty HospitalOPoly Number: Repository [id number]: [phone] [id number] [phone] (HP) e Date:3552-49-15IP [address], [place] [address]PM: 05/22/2018 Secondary NOT GIVENUNK Sin Insurance:SELF PAY [facility] Number: Effective Repository Date:2018-05-08 04/04/2018 TREVER D Primary VENECIA K [place] [id number] Insurance:IMELDA LINCOLNDOB: [facility] [id number] Pungo Hospitaly Number: Repository [id number]: [phone]) [id number] [phone] () e Date:9541-66-46QN [address], [place] [address]TS: 04/04/2018 Secondary NOT GIVENUNK [place] Insurance:SELF PAY [facility] Number: Effective Repository Date:2017-12-21 03/17/2018 Trever D Primary VENECIA K [place] [id number] Insurance:IMELDA LINCOLNDOB: [facility] [id number] Community Hospital Number: Repository [id number]: [phone]) [id number] [phone] () e Date:3490-88-75VK [address], [place] [address]XW: 03/17/2018 Secondary NOT GIVENUNK Sin Insurance:SELF PAY [facility] Number: Effective Repository Date:2018-03-17 02/14/2018 Trever D Primary VENECIA K [place] [id number] Insurance:IMELDA LINCOLNDOB: [facility] [id number] Community Hospital Number: Repository [id number]: [phone]) [id number] [phone] (HP) e Date:2563-45-26[address] [address]OQ: 02/14/2018 Secondary NOT GIVENUNK [place] Insurance:SELF PAY [facility] Number: Effective Repository Date:2018-02-13 02/06/2018 Trever Marshall Primary VENECIA [id number] Insurance:IMELDA [facility] [id number] Community Hospital Number: Repository [id number]: 330 [id number] [phone] () e Date:6208-59-25PK [address], [place] [address]TE: 02/06/2018 Secondary NOT GIVENUNK [place] Insurance:SELF PAY [facility] Number: Effective Repository Date:2018-02-06 01/16/2018 Trever D Primary VENECIA Vogt [id number] Insurance:IMELDA LINCOLNDOB: [facility] [id number] Community Hospital Number: Repository [id number]: ([phone] [id number] [phone] () e Date:5122-26-61QR [address], [place] [address]NB: 01/16/2018 Secondary NOT GIVENUNK [place] Insurance:SELF PAY [facility] Number: Effective Repository Date:2018-01-16 11/06/2017 Trever D Primary VENECIA Vogt [id number] Insurance:IMELDA LINCOLNDOB: [facility] [id number] Community Hospital Number: Repository [id number]: [id number] [phone] e Date:0732-09-17JW () [address], [place] [address]ZW: 11/06/2017 Secondary NOT GIVENUNK Sin Insurance:SELF PAY [facility] Number: Effective Repository Date:2017-10-11 06/22/2017 Trever D Primary VENECIA Vogt [id number] Insurance:IMELDA LINCOLNDOB: [facility] [id number] HMOP[place] Number: Repository [id number]: 330 [id number] [phone] () e Date:7059-76-33JQ [address] [place] [address]OJ: 06/22/2017 Secondary NOT GIVENUNK [place] Insurance:SELF PAY [facility] Number: Effective Repository Date:2017-06-17
== END ==
PROVIDERS: Family Provider Family Medicine; PCP Family Medicine; Referring Provider Nurse Practitioner Adult Health; Visit Provider Nurse Practitioner Adult Health
DX: N39.0 Urinary tract infection, site not specified (principal)
CPT/HCPCS: 87077; 87086; 87088; 87186

== ENCOUNTER → 2018-07-04 06:54 | Outpatient (CLI) | payer MEDICARE, SELFPAY ==
[2018-06-19 10:41] VITALS: BMI 30.4
--- NOTE | 2018-07-04 10:13 | ECHOCS_ITS ---
Reason For Study: AV disorder Procedure This was a 2D Doppler, Color Flow transthoracic echocardiogram. Exam performed in department. Left Ventricle Normal LV size. Left ventricular systolic function is normal. The estimated ejection fraction is 60 %. Stage 1 diastolic dysfunction. No regional wall motion abnormalities noted. Right Ventricle Normal RV size. Normal systolic function. Atria Normal left atrium. Normal right atrium. Mitral Valve Normal mitral valve. Tricuspid Valve Normal tricuspid valve. Mild (1+) tricuspid valve insufficiency. Pulmonary artery systolic pressure is 28 mmHg. Aortic Valve Mean aortic valve gradient 8 mmHg. Bioprosthetic aortic valve. Pulmonic Valve The pulmonic valve is not well visualized. Great Vessels Normal aortic root. The pulmonary artery is normal size. Normal inferior vena cava. Pericardium/Pleural No pericardial effusion. Medication 22 gauge I.V. with prn adaptor inserted into right arm. Diluted definity 2ml given slow IV push to enhance endocardial definition. MMode/2D Measurements & Calculations LVIDd: 3.9 cm IVSd: 1.0 cm LVOT diam: 2.0 cm LVIDs: 2.3 cm LVPWd: 0.96 cm RVDd: 3.5 cm FS: 39.5 % LVOT area: 3.2 cm2 Ao root diam: 3.6 cm LAV(MOD-sp4): 23.0 ml LA A4 area: 11.6 cm2 LA dimension: 2.7 cm RA A4 area: 11.7 cm2 Time Measurements MV dec time: 0.21 sec Doppler Measurements & Calculations MV E max noe: 74.4 cm/sec Lat Peak E' Noe: 8.6 cm/sec Med Peak E' Noe: 7.2 cm/sec MV A max noe: 92.7 cm/sec E/E' lat: 8.6 E/E' med: 10.4 MV E/A: 0.80 MV V2 max: 105.0 cm/sec MV P1/2t max noe: 80.9 cm/sec Ao V2 max: 207.6 cm/sec MV max P.4 mmHg MV P1/2t: 90.6 msec Ao max P.2 mmHg MV V2 mean: 57.2 cm/sec MV dec slope: 261.4 cm/sec2 Ao V2 mean: 130.2 cm/sec MV mean P.6 mmHg MVA(P1/2t): 2.4 cm2 Ao mean P.0 mmHg MV V2 VTI: 26.4 cm Ao V2 VTI: 48.4 cm MVA(VTI): 3.3 cm2 KRISHAN(I,D): 1.8 cm2 KRISHAN(V,D): 1.8 cm2 LV V1 max: 120.4 cm/sec SV(LVOT): 88.2 ml PA V2 max: 87.6 cm/sec LV V1 max P.8 mmHg LV V1 mean P.2 mmHg LV V1 mean: 83.3 cm/sec LV V1 VTI: 28.0 cm TR max noe: 247.0 cm/sec TR max P.4 mmHg Interpretation Summary Normal LV size. Left ventricular systolic function is normal. The estimated ejection fraction is 60 %. Stage 1 diastolic dysfunction. Mean aortic valve gradient 8 mmHg. Contrast injection was performed. Compared to previous study, the left ventricular systolic function is the same.. Ordering Physician: Martin Perea Referring Physician: Martin Perea Performed By: Thomas Strange RCS
--- NOTE | 2018-07-04 12:53 | STRESSREP ---
Stress Test Report Exercise myocardial perfusion stress test. 68-year-old lady with a history of aortic valve replacement and chest pain. Stress protocol: Resting EKG demonstrates a normal sinus rhythm with a rate of 67 bpm intraventricular conduction delay is noted resting blood pressure 118/78 mmHg. Patient exercised according to regular Jace protocol for total duration of 4 minutes and 45 seconds completing 1 minute and 45 seconds to stage II of the Jace protocol the maximum heart rate attained was 136 bpm which was 90% of maximum predicted heart rate the maximum workload was 6.7 metabolic equivalents. The patient maintained sinus rhythm throughout the recording. At rest with no ST or T wave changes noted suggest ischemia peak exercise patient maintained sinus rhythm with the in complete left bundle branch block patent noted. No clinical angina was noted. Resting blood pressure 118/78 with a peak blood pressure 140/74. Myocardial perfusion protocol. 11.6 mCi of technetium 99m sestamibi was injected at rest. Patient exercised according to regular Jace protocol for total duration of 4 minutes and 45 seconds. Peak exercise 33.3 mCi of technetium 99m sestamibi was injected stress images were obtained stress and rest images were reconstructed and compared in the short axis vertical and horizontal long axis. Gated images were also obtained Perfusion SPECT analysis: Review of the stress images demonstrate normal uptake of tracer noted in all areas of myocardium except for the midportion of the anterior wall.. The resting images similarly demonstrate normal uptake of tracer noted in areas of the myocardium with mild improvement in the anterior wall presents. The above is suggestive of mild mid anterior ischemia. The rest of the rodney appear to be normally perfused. Gated SPECT analysis: The gated ejection fraction is noted to be 80%. Conclusion: Exercise myocardial perfusion stress test with subtle mid anterior perfusion wall defect at a moderate workload. Preserved ejection fraction.
--- OUTSIDE RECORDS SUMMARY | 2018-10-05 07:47 | XMS RPT_ITS ---
:1950 Author Organization OHIP Support Name Relationship Address Phone TREVER KAUR Unavailable [address] + [place] [address] R Unavailable Unavailable Unavailable NATASHA TREVER Unavailable [address] + [place] [address] R Unavailable Unavailable Unavailable NATASHA TREVER Unavailable [address] + [place] [address] R Unavailable Unavailable Unavailable NATASHA TREVER Unavailable [address] + [place] [address] R Unavailable Unavailable Unavailable NATASHA TREVER Unavailable [address] + [place] [address] R Unavailable Unavailable Unavailable NATASHA TREVER Unavailable [address] + [place] [address] R Unavailable Unavailable Unavailable NATASHA TREVER Unavailable [address] + [place] [address] R Unavailable Unavailable Unavailable NATASHA TREVER Unavailable [address] + [place] [address] R Unavailable Unavailable Unavailable NATASHA TREVER Unavailable [address] + [place] [address] R Unavailable Unavailable Unavailable NATASHA TREVER Unavailable [address] + [place] [address] R Unavailable Unavailable Unavailable NATASHA TREVER Unavailable [address] + [place] [address] R Unavailable Unavailable Unavailable NATASHA TREVER Unavailable [address] + [place] [address] R Unavailable Unavailable Unavailable NATASHA TREVER Unavailable [address] + [place] [address] R Unavailable Unavailable Unavailable NATASHA, TREVER Unavailable [address] + [place] [address] R Unavailable Unavailable Unavailable NATASHA TREVER Unavailable [address] + [place] [address] R Unavailable Unavailable Unavailable NATASHA, TREVER Unavailable [address] + [place] [address] R Unavailable Unavailable Unavailable TREVER KAUR Unavailable [address] + [place] [address] R Unavailable Unavailable Unavailable R Unavailable Unavailable Unavailable R Unavailable Unavailable Unavailable R Unavailable Unavailable Unavailable R Unavailable Unavailable Unavailable R Unavailable Unavailable Unavailable R Unavailable Unavailable Unavailable R Unavailable Unavailable Unavailable Care Team Providers Name Role Phone Elizaar, Castleton Attending Unavailable Eliazar, Castleton Referring Unavailable Jolliff, Ilda Primary Care Unavailable Erika Moya Attending Unavailable Erika Moya Attending Unavailable Eliazar, Martin Attending Unavailable Eliazar, Castleton Referring Unavailable Jolliff, Ilda Primary Care Unavailable Marquita Chandra Attending Unavailable Jolliff, Ilda Referring Unavailable Eliazar, Martin Attending Unavailable Eliazar, Castleton Referring Unavailable Jolliff, Ilda Primary Care Unavailable Jolliff, Ilda Attending Unavailable Chris Espana Primary Care Unavailable Marquita Chandra Attending Unavailable Marquita Chandra Attending Unavailable Eliazar, Martin Referring Unavailable Jolliff, Ilda Primary Care Unavailable Eliazar, Castleton Consulting Unavailable Erika Moya Attending Unavailable Eliazar, Martin Attending Unavailable Eliazar, Castleton Referring Unavailable Jolliff, Ilda Attending Unavailable Jolliff, Ilda Primary Care Unavailable Jolliff, Ilda Attending Unavailable Jolliff, Ilda Primary Care Unavailable Eliazar, Castleton Attending Unavailable Eliazar, Martin Referring Unavailable Jolliff, Ilda Attending Unavailable Franc Reddy Attending Unavailable Franc Reddy Referring Unavailable Jolliff, Ilda Primary Care Unavailable Franc Reddy Attending Unavailable Jolliff, Ilda Primary Care Unavailable Jolliff, Ilda Primary Care Unavailable Pankaj Kimball Attending Unavailable Jolliff, Ilda Attending Unavailable Jolliff, Ilda Referring Unavailable Jolliff, Ilda Primary Care Unavailable Jolliff, Ilda Attending Unavailable Jolliff, Ilda Referring Unavailable Jolliff, Ilda Primary Care Unavailable Nikki Trotter Attending Unavailable Tickton Nikki Referring Unavailable Jolliff, Ilda Primary Care Unavailable Eliazar, Castleton Attending Unavailable Antonio Ilda Referring Unavailable Eliazar, Castleton Attending Unavailable Chris Espana Referring Unavailable Chris Espana Primary Care Unavailable PROBLEMS PROBLEMS DATE TYPE CONDITION / CODE ATTENDING STATUS SOURCE Unknown R07.9 - Chest pain, Eliazar, Martin Active [place] 9 unspecified / Community R07.9(ICD-10) Hospital Repository Unknown Z98.890 - Other specified Eliazar, Castleton Active [place] 8 postprocedural states / Community Z98.890(ICD-10) Hospital Repository Unknown E78.5 - Hyperlipidemia, Eliazar, Martin Active [place] 8 unspecified / Community E78.5(ICD-10) Hospital Repository Unknown S32.000A - Wedge Ilda Alvarez Active [place] 8 compression fracture of Community unspecified lumbar Hospital vertebra, initial Repository encounter for closed fracture / S32.000A(ICD-10) Unknown R20.2 - Paresthesia of Antonio Ilda Active [place] 8 skin / R20.2(ICD-10) [facility] Repository Unknown S32.010A - [place] Kimball, Pankaj Active [place] 8 compression fracture of [facility] first lumbar vertebra, Hospital initial encounter for Repository closed fracture / S32.010A(ICD-10) Unknown R39.15 - Urgency of Ilda Alvarez Active [place] 8 urination / Community R39.15(ICD-10) Hospital Repository Unknown E78.00 - Pure Eliazar, Castleton Active [place] 7 hypercholesterolemia, Community unspecified / Hospital E78.00(ICD-10) Repository Unknown E78.0 - Pure Eliazar, Castleton Active [place] 7 hypercholesterolemia / Community E78.0(ICD-10) Hospital Repository PROCEDURES PROCEDURES No Procedure Records FoundRESULTS RESULTS Observed: 08/07/2018 Status: F Source: SIN CULTURE, URINE 11:15 AM [facility] REPOSITORY Urine Culture ORGANISM 1: Escherichia coli [place] Count >100,000 Escherichia coli: REACTION Ampicillin $ >=32 R Ampicillin/Sulbactam $ 16 I Cefazolin $ <=4 S Cefepime $ <=0.12 S Ceftazidime *NF <=1 S Ceftriaxone $ <=0.25 S Ciprofloxacin $ <=0.25 S Ertapenim $$$ <=0.12 S ESBL NEG Gentamicin $ <=1 S Imipenem *NF 0.5 S Levofloxacin $ <=0.12 S Nitrofurantoin $ <=16 S Piperacillin/Tazobactam $$ <=4 S Tobramycin $ <=1 S Trimethoprim/Sulfametho $ <=20 S (NF) indicates non-formulary drug at [facility]. Approval by Infectious Disease Specialist required before non-formulary drugs may be ordered and/or dispensed. Performed By: #### M100.0650 #### [facility] [address] [place], [address] OFFICE VISIT REPORT Observed: 07/23/2018 Status: F Source: [place] 3:38 PM [facility] [place] [facility] [address] [place] [address] OFFICE VISIT Date of Service: 07/19/18 MR#: [id number] Acct: [id number] Patient: VENECIA KAUR Rep #: [id number] : 1950 Provider: Marquita Chandra Age/Sex: 68/F Location: [facility] Status: Signed Intake Vital Signs07/19/18 Body Mass Index (BMI) 30.4 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 Chief Complaint: Follow up Allergies tomatoes Allergy (Intermediate, Uncoded 07/23/18 12:29) Hives Medications ascorbic acid (vitamin C) 1,000 mg tablet 1 g PO QDAY tab 06/20/17 [History Confirmed 07/20/18] aspirin 81 mg tablet,delayed release 81 mg PO QDAY 06/20/17 [History Confirmed 07/20/18] calcium polycarbophil 625 mg tablet 1,250 mg PO QDAY 06/20/17 [History Confirmed 07/20/18] cranberry 400 mg capsule 400 mg PO QDAY 06/20/17 [History Confirmed 07/20/18] multivitamin tablet 1 tab PO QDAY 06/20/17 [History Confirmed 07/20/18] vitamin B complex capsule 1 cap PO QDAY 06/20/17 [History Confirmed 07/20/18] vitamin E (dl, acetate) 1,000 unit capsule 1,000 unit PO QDAY 06/20/17 [History Confirmed 07/20/18] garlic 5,000 mcg tablet 5 mg PO QDAY 06/22/17 [History Confirmed 07/20/18] cinnamon bark 500 mg capsule 500 mg PO DAILY cap 06/19/18 [History Confirmed 07/20/18] Nursing Note Cardiac catheterization teaching completed and instructions reviewed. 07/23/18 1538 <Electronically signed by Marquita GAN> Date Marquita GAN Cosigner Signature: Date (if applicable) CC: HISTORY AND PHYSICAL Observed: 07/23/2018 Status: F Source: [place] EXAM 9:36 AM [facility] [place] [facility] Medical Records Department [address] [place] [address] History and Physical 07/23/18927 MR#: [id number] Acct: [id number] Name: VENECIA KAUR Rep #: [id number] : 1950 68 From: Marquita GAN PCP: Ilda Alvarez MD Status[place] [facility] [place] [facility] [facility] Problem List (1) Abnormal nuclear stress test Status: Acute (2) H/O aortic valve replacement Status: Resolved History and Physical Date of Admission: 07/23/18 HPI Details: VENECIA KAUR, is a 68 F who presents to the office today for a heart cath for an abnormal stress test. She has a history of aortic valve disease with aortic valve replacement in 2009 with a Fariba Garza bovine pericardial valve. She was in our office a month ago for a routine visit and noted epigastric discomfort approx 2 months ago. . She notes that she had stopped walking into town a few months ago because of chest pain. She has not had any recent discomfort or worsening SOB. She does not have lightheadedness/dizziness. She does not have any palpitations. Echocardiogram demonstrated Normal LV size. Left ventricular systolic function is normal. The estimated ejection fraction is 60 %. Stage 1 diastolic dysfunction. Mean aortic valve gradient 8 mmHg. Contrast injection was performed. Compared to previous study, the left ventricular systolic function is the same. Stress test demonstrated Exercise myocardial perfusion stress test with subtle mid anterior perfusion wall defect at a moderate workload. Preserved ejection fraction. Intake BP: 126/70 HR: 65 RR:16 Allergies tomatoes Allergy (Severe, Uncoded 03/17/18 16:44) unknown Medications ascorbic acid (vitamin C) 1,000 mg tablet 1 g PO QDAY tab 06/20/17 [History Confirmed 07/20/18] aspirin 81 mg tablet,delayed release 81 mg PO QDAY 06/20/17 [History Confirmed 07/20/18] calcium polycarbophil 625 mg tablet 1,250 mg PO QDAY 06/20/17 [History Confirmed 07/20/18] cranberry 400 mg capsule 400 mg PO QDAY 06/20/17 [History Confirmed 07/20/18] multivitamin tablet 1 tab PO QDAY 06/20/17 [History Confirmed 07/20/18] vitamin B complex capsule 1 cap PO QDAY 06/20/17 [History Confirmed 07/20/18] vitamin E (dl, acetate) 1,000 unit capsule 1,000 unit PO QDAY 06/20/17 [History Confirmed 07/20/18] garlic 5,000 mcg tablet 5 mg PO QDAY 06/22/17 [History Confirmed 07/20/18] cinnamon bark 500 mg capsule 500 mg PO DAILY cap 06/19/18 [History Confirmed 07/20/18] clopidogrel 75 mg tablet 75 mg PO DAILY #30 tab 07/19/18 [Rx Confirmed 07/20/18] PFSH Medical History Non-rheumatic aortic stenosis (Chronic) Hyperlipidemia (Chronic) Ascending aortic aneurysm (Chronic) Surgical History H/O aortic valve replacement (Resolved 08/25/09) H/O breast biopsy (Resolved) History of appendectomy (Resolved) History of left heart catheterization (Resolved 08/06/09) Family History Father No problems noted. Mother [...] or blurry vision ENT ENT: Negative for headache(s) or balance problems Cardio Chest Pain: Yes (epigastic discomfort) Palpitations: No Edema: None Muscle aches with [...] Negative for weakness, frequent falls, headache(s), double vision or blurry vision Santhosh Hematologic/Lymphatic: Negative for easy bruising or easy bleeding Endo Endo: Negative for fatigue or excessive sweating Psych Psych: Negative for anxiety or depression Allergy Allergy/Immunology: Negative for rash Cardiology Exam Const Appearance: cooperative, healthy appearing, [...] Psych Psychological: normal affect Assessment AND Plan Problems 1. Abnormal nuclear stress test R94.39 2. H/O aortic valve replacement Z95.2 Pt will undergo a heart cath today for further evaluate. She will follow up accordingly. 07/23/18 0936 <Electronically signed by Marquita GAN> Date Marquita GAN Cosigner Signature: Date (if applicable) CC: Ilda Alvarez MD; Marquita Chandra Signed CBC W/DIFF, AUTOMATED Collected: 07/19/2018 Status: F Source: [place] 2:51 PM [facility] [place] TYPE CODE TESTS RESULT OUT OF RANGE REFERENCE UNITS LAB L100.1000 4.4-11.0 K/mm3 Normal WBC 5.2 LAB L100.1200 4.2-5.4 M/mm3 Normal RBC 4.45 LAB L100.1300 12.0-15.0 g/dl Normal HGB 13.4 LAB L100.1400 37-47 % Normal HCT 42.1 LAB L100.1500 81-99 fL Normal MCV 94.6 LAB L100.1600 27.0-32.0 pg Normal MCH 30.1 LAB L100.1700 32-36 g/gl Low MCHC 31.8 LAB L100.1810 11.6-14.6 % Normal RDW CV 13.8 LAB L100.1820 35.1-43.9 fl High RDW SD 46.0 LAB L100.1900 150-450 K/mm3 Normal PLT 187 LAB L100.2000 6.2-12.0 fl Normal MPV 10.5 LAB L100.2100 47-70 % Normal NEUT% 53.8 LAB L100.2200 19-41 % Normal LY% 28.8 LAB L100.2300 0-10 % High MONO% 12.9 LAB L100.2400 0-5 % Normal EO% 3.5 LAB L100.2500 0-1 % Normal BASO% 0.8 LAB L100.2550 0.0-0.9 % Normal IM GRAN % 0.200 Result Comment: IG% - Immature Granulocytes (promyelocytes, myelocytes and metamyelocytes) > 1% indicates that a LEFT SHIFT is Present. LAB L100.2620 2.0-7.7 X10 3/uL Normal Absolute Neut 2.8 LAB L100.2720 0.83-4.51 X10 3/ul Normal Absolute Lymph 1.50 Performed By: #### L100.0100 #### [facility] [address] [place], [place], [id number] BASIC METABOLIC Collected: 07/19/2018 Status: F Source: [place] PROFILE (BMP) 2:51 PM [facility] [place] TYPE CODE TESTS RESULT OUT OF RANGE REFERENCE UNITS LAB L501.0100 74-106 mg/dL Normal GLU 80 Result Comment: Please note revised GLUCOSE reference range effective 2017. LAB L501.1000 7-18 mg/dL High BUN 28 LAB L501.1100 0.55-1.02 mg/dL Normal CREAT,SERUM 0.94 Result Comment: The validity of the calculated GFR AND GFRAA in patients over 70 years has not been determined. Clinical correlation is essential. LAB L501.1110 >60 mL/min Normal EST GFR 63 Result Comment: Non- GFR Calc LAB L501.1115 >60 mL/min Normal EST GFR - AA 76 Result Comment: GFR Calc LAB L501.1300 10-20 RATIO High BUN/CRE 29.9 LAB L501.2200 8.5-10.1 mg/dL CA Normal 10.0 LAB L501.5300 136-145 mmol/L NA Normal 143 LAB L501.5600 3.5-5.1 mmol/L K Normal 4.0 LAB L501.5900 98-107 mmol/L CL Normal 106 LAB L501.6100 21.0-32.0 mmol/L Normal CO2 28.0 LAB L501.6200 5-15 Normal GAP 9 Performed By: #### L500.2500 #### [facility] [address] [facility] [place], [address] CHEST PA AND LATERAL Observed: 07/19/2018 Status: F Source: [place] 2:06 PM [facility] [place] [facility] Imaging Services [address] [place] [address] Chest PA and Lateral MR#: [id number] Acct: [id number] Name: VENECIA KAUR Rep #: [id number] : 1950 F 68 From: Abel Pickard MD PCP: Ilda Alvarez MD Status: PRE MTC Study: Chest PA and Lateral Date of Exam: 07/19/18 Exam# [id number] Ordering Dr: Martin Perea MD STUDY: X-RAY CHEST REASON FOR EXAM: Female, 68 years old. Substernal chest pain TECHNIQUE: PA and lateral views of the chest. COMPARISON: 08/05/2013 FINDINGS: There are interstitial fibrotic changes of the lungs. There is no demonstrated pleural abnormality. Sternal cerclage wires and vascular clips are present from a prior sternotomy and coronary artery bypass graft procedure (CABG). Normal mediastinum and judith. Normal visualized pulmonary arteries. Normal visualized aortic arch and descending thoracic aorta. Normal visualized thoracic spine. Normal visualized ribs, clavicles, and shoulders. There is no demonstrated abnormality of the visualized soft tissue structures of the upper abdomen. RAD/Chest PA and Lateral IMPRESSION: No acute pulmonary process Electronically Signed: Gary Pickard MD at 12:57 EST , Service support , CC: Ilda Alvarez MD; Martin Perea MD Non Destructive Testing Specialist: Signed ECHO, COMPLETE W/ Observed: 07/04/2018 Status: F Source: E[place] L[place]ME CONTRAST 1:04 PM [facility] [place] [facility] Cardiovascular Services [address] [place] [address] Echo Complete W/ Contrast 07/04/18 1038 MR#: [id number] Acct: [id number] Name: VENECIA KAUR Rep #: [id number] : 1950 68 From: Martin Perea MD Attending Dr: Martin Perea MD Status: REG CLI Ordering Dr: Martin Perea MD Date: 07/04/18 Location: CVS Sex: F C Admitted: Reason For Study: AV disorder Procedure This was a 2D Doppler, Color Flow transthoracic echocardiogram. Exam performed in department. Left Ventricle Normal LV size. Left ventricular systolic function is normal. The estimated ejection fraction is 60 %. Stage 1 diastolic dysfunction. No regional wall motion abnormalities noted. Right Ventricle Normal RV size. Normal systolic function. Atria Normal left atrium. Normal right atrium. Mitral Valve Normal mitral valve. Tricuspid Valve Normal tricuspid valve. Mild (1+) tricuspid valve insufficiency. Pulmonary artery systolic pressure is 28 mmHg. Aortic Valve Mean aortic valve gradient 8 mmHg. Bioprosthetic aortic valve. Pulmonic Valve The pulmonic valve is not well visualized. Great Vessels Normal aortic root. The pulmonary artery is normal size. Normal inferior vena cava. Pericardium/Pleural No pericardial effusion. Medication 22 gauge I.V. with prn adaptor inserted into right arm. Diluted definity 2ml given slow IV push to enhance endocardial definition. MMode/2D Measurements AND Calculations LVIDd: 3.9 cm IVSd: 1.0 cm LVOT diam: 2.0 cm LVIDs: 2.3 cm LVPWd: 0.96 cm RVDd: 3.5 cm FS: 39.5 % LVOT area: 3.2 cm2 Ao root diam: 3.6 cm LAV(MOD-sp4): 23.0 ml LA A4 area: 11.6 cm2 LA dimension: 2.7 cm RA A4 area: 11.7 cm2 Time Measurements MV dec time: 0.21 sec Doppler Measurements AND Calculations MV E max noe: 74.4 cm/sec Lat Peak E' Noe: 8.6 cm/sec Med Peak E' Noe: 7.2 cm/sec MV A max noe: 92.7 cm/sec E/E' lat: 8.6 E/E' med: 10.4 MV E/A: 0.80 MV V2 max: 105.0 cm/sec MV P1/2t max noe: 80.9 cm/sec Ao V2 max: 207.6 cm/sec MV max P.4 mmHg MV P1/2t: 90.6 msec Ao max P.2 mmHg MV V2 mean: 57.2 cm/sec MV dec slope: 261.4 cm/sec2 Ao V2 mean: 130.2 cm/sec MV mean P.6 mmHg MVA(P1/2t): 2.4 cm2 Ao mean P.0 mmHg MV V2 VTI: 26.4 cm Ao V2 VTI: 48.4 cm MVA(VTI): 3.3 cm2 KRISHAN(I,D): 1.8 cm2 KRISHAN(V,D): 1.8 cm2 LV V1 max: 120.4 cm/sec SV(LVOT): 88.2 ml PA V2 max: 87.6 cm/sec LV V1 max P.8 mmHg LV V1 mean P.2 mmHg LV V1 mean: 83.3 cm/sec LV V1 VTI: 28.0 cm TR max noe: 247.0 cm/sec TR max P.4 mmHg Interpretation Summary Normal LV size. Left ventricular systolic function is normal. The estimated ejection fraction is 60 %. Stage 1 diastolic dysfunction. Mean aortic valve gradient 8 mmHg. Contrast injection was performed. Compared to previous study, the left ventricular systolic function is the same.. Ordering Physician: Martin Perea Referring Physician: Martin Perea Performed By: Thomas Strange RCS 07/04/18 1303 Date Martin Perea MD CC: Ilda Alvarez MD; Martin Perea MD Date Dictated: 07/04/18 1038 Date Transcribed: 07/04/18 1303 Non Destructive Testing Specialist: Signed STRESS REPORT Observed: 07/04/2018 Status: F Source: [place] 12:59 PM [facility] [place] [facility] [place]ovascular [place] [address] [address] MR#: [id number] Acct: [id number] Name: VENECIA KAUR Rep #: [id number] : 1950 68 From: Mratin Perea MD Primary Care: Ilda Alvarez MD Status: REG CLI Ordering Dr: Sex: F C Stress Test Report Exercise myocardial perfusion stress test. 68-year-old lady with a history of aortic valve replacement and chest pain. Stress protocol: Resting EKG demonstrates a normal sinus rhythm with a rate of 67 bpm intraventricular conduction delay is noted resting blood pressure 118/78 mmHg. Patient exercised according to regular Jace protocol for total duration of 4 minutes and 45 seconds completing 1 minute and 45 seconds to stage II of the Jace protocol the maximum heart rate attained was 136 bpm which was 90% of maximum predicted heart rate the maximum workload was 6.7 metabolic equivalents. The patient maintained sinus rhythm throughout the recording. At rest with no ST or T wave changes noted suggest ischemia peak exercise patient maintained sinus rhythm with the in complete left bundle branch block patent noted. No clinical angina was noted. Resting blood pressure 118/78 with a peak blood pressure 140/74. Myocardial perfusion protocol. 11.6 mCi of technetium 99m sestamibi was injected at rest. Patient exercised according to regular Jace protocol for total duration of 4 minutes and 45 seconds. Peak exercise 33.3 mCi of technetium 99m sestamibi was injected stress images were obtained stress and rest images were reconstructed and compared in the short axis vertical and horizontal long axis. Gated images were also obtained Perfusion SPECT analysis: Review of the stress images demonstrate normal uptake of tracer noted in all areas of myocardium except for the midportion of the anterior wall.. The resting images similarly demonstrate normal uptake of tracer noted in areas of the myocardium with mild improvement in the anterior wall presents. The above is suggestive of mild mid anterior ischemia. The rest of the rodney appear to be normally perfused. Gated SPECT analysis: The gated ejection fraction is noted to be 80%. Conclusion: Exercise myocardial perfusion stress test with subtle mid anterior perfusion wall defect at a moderate workload. Preserved ejection fraction. 07/04/18 1259 <Electronically signed by Martin Perea MD> Date Martin Perea MD CC: Ilda Alvarez MD; Martin Perea MD Date Dictated: 07/04/18 1253 Date Transcribed: 07/04/181252 Non Destructive Testing Specialist: [place] Signed CARDIOLOGY VISIT Observed: 06/19/2018 Status: F Source: [place] L[place] REPORT 10:58 AM [facility] [place] [facility] [address] [place] [address] OFFICE VISIT Date of Service: 06/19/18 MR#: [id number] Acct: [id number] Name: VENECIA KAUR Rep #: [id number] : 1950 Provider: Martin Perea MD Age/Sex: 68/F Location: [facility] [place] Status: Signed [facility] Chief Complaint: Follow up Details: VENECIA [...] brachial Intake Visit Reasons: 1 Y FU Braddisher Required: No Accompanied by: none Is patient [...] PO DAILY cap 06/19/18 [History Confirmed 06/19/18] PFSH Medical History Hyperlipidemia (Chronic) Ascending aortic aneurysm [...] mm Fariba-Garza bovine pericardial aortic valve at [facility] Plan She is status post aortic valve [...] Other Orders Orders: Follow Up 1 Year (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) Coding Level of Care Code Off vis,est,level 4 Diagnoses aortic valve replacement Hyperlipidemia E78.5 Chest pain R07.9 Coding Level of Care Code Off vis,est,level 4 Diagnoses aortic valve replacement Hyperlipidemia E78.5 Chest pain R07.9 06/19/18 1058 <Electronically signed by Martin Perea MD> Date Martin Perea MD Cosigner Signature: Date (if applicable) CC: Ilda Alvarez MD Observed: 06/12/2018 Status: F Source: [place]ME CULTURE, URINE 1:40 PM [facility] [place] Urine Culture ORGANISM 1: Escherichia coli [place] Count >100,000 Escherichia coli: REACTION Amoxacillin/Clavulanic Acid [...] <=20 S (NF) indicates non-formulary drug at [facility]. Approval by Infectious Disease Specialist required before non-formulary drugs may be ordered and/or dispensed. Performed By: #### M100.0650 #### [facility] [address] [facility] [place], [address] DEXA BONE DENSITY Observed: 05/22/2018 Status: F Source: E[place] L[place]ME STUDY 10:56 AM [facility] [place] [facility] Imaging Services [address] [place] [address] Dexa Bone Density Study MR#: [id number] Acct: [id number] Name: VENECIA KAUR Rep #: [id number] : 1950 F 68 From: Mitchell Samuel MD PCP: Ilda Alvarez MD Status: REG CLI Study: Dexa Bone Density Study Date of Exam: 05/22/18 Exam# [id number] Ordering Dr: Ilda Alvarez MD STUDY: DUAL [...] Mitchell Samuel MD at 9:24 EST Tel [phone], Service support , CC: Ilda Alvarez MD Non Destructive Testing Specialist: Signed NCS AND/OR EMG Observed: 04/04/2018 Status: F Source: EAST LYME PATIENT 10:21 AM [facility] [facility] Pulmonary Services/Neurology [address] [place] [address] MR#: [id number] Acct: [id number] Name: VENECIA KARU Rep #: [id number] : 1950 68 From: Gee Ernandez MD Referring Dr: Ilda Alvarez MD Status: REG CLI Ordering Dr: Date: Location: [facility] Sex: F C NCS and/or EMG Patient [...] Dictated: 04/04/18 1004 Date Transcribed: 04/04/18 1004 Non Destructive Testing Specialist: NF Signed EMERGENCY DEPARTMENT Observed: 03/17/2018 Status: F Source: EAST L[place] SUMMARY 9:23 PM [facility] [facility] Medical Records Department [address] [place] [address] Emergency Department Summary 03/17/182121 MR#: [id number] Acct: [id number] Name: VENECIA KAUR Rep #: [id number] : 1950 68 From: Pankaj Kimball MD PCP: Ilda Alvarez MD Status: REG ER - ER Visit Summary Date of Service: 03/17/18 Chief Complaint: [] History of Present Illness: The patient is a 68 F [] Physical Examination: [] Test Results: [] Emergency Department Course and Treatment: [] Treatment Plan: [] Disposition: [] Impression: [] This note was generated with NICO dictation software. It may contain incorrect words, [...] your Primary Care Provider. Call [facility] ([phone]) or report to the closest Emergency Room. Call 911 if necessary. 03/17/182122 <Electronically signed by Pankaj Kimball MD> Date Pankaj Kimball MD Cosigner Signature (If Indicated): Date CC: Ilda Alvarez MD EMERGENCY DEPARTMENT Observed: 03/17/2018 Status: F Source: EAST LYME SUMMARY 9:22 PM [facility] Medical Records Department [address] [place] [address] Emergency Department Summary 03/17/182114 MR#: [id number] Acct: [id number] Name: VENECIA KAUR Rep #: [id number] : 1950 68 From: Pankaj Kimball MD [...] since she was dazed based on the [place] head rule. Treatment Plan: Appropriate home-going instruction and pain medicine. Disposition: Discharged home with spouse Impression: 1. Closed head injury with transient altered sensorium 2. Compression fracture L1 This note was generated with NICO dictation software. It may contain incorrect words, spelling, and punctuation that were not noted in review of the chart prior to signing ED Disposition - Plan for ED Patient: Disposition: Home or Assisted Living Chief Complaint: Back Prescriptions: Oxycodone HCl/Acetaminophen [Percocet 5/325] 1 tab PO Q6H PRN PRN 5 Days #20 tab PRN Reason: Pain Referrals: lIda Alvarez MD [Primary Care Provider] - 10-14 [...] your Primary Care Provider. Call [facility] ([phone]) or report to the closest Emergency Room. Call 911 if necessary. 03/17/182121 <Electronically signed by Pankaj Kimball MD> Date Pankaj Kimball MD Cosigner Signature (If Indicated): Date CC: Ilda Alvarez MD BRAIN/HEAD WITHOUT Observed: 03/17/2018 Status: F Source: SIN CONTRAST 7:56 PM [facility] [place] [facility] Imaging Services [address] [place] [address] Brain/Head without Contrast MR#: [id number] Acct: [id number] Name: VENECIA KAUR Rep #: [id number] : 1950 F 68 From: Darin Desouza MD PCP: Ilda Alvarez MD Status: REG ER Study: Brain/Head without Contrast Date of Exam: 03/17/18 Exam# [id number] Ordering Dr: Pankaj Kimball MD STUDY: CT [...] CC: Ilda Alvarez MD; Pankaj Kimball MD Non Destructive Testing Specialist: Signed LUMBAR SPINE 2 OR 3 Observed: 03/17/2018 Status: F Source: SIN VIEWS 6:31 PM [facility] REPOSITORY [facility] Imaging Services [address] [place] [address] Lumbar Spine 2 or 3 Views MR#: [id number] Acct: [id number] Name: VENECIA KAUR Rep #: [id number] : 1950 F 68 From: Darin Desouza MD PCP: Ilda Alvarez MD Status: REG ER Study: Lumbar Spine 2 or 3 Views Date of Exam: 03/17/18 Exam# [id number] Ordering Dr: Pankaj Kimball MD STUDY: X-RAY [...] CC: Ilda Alvarez MD; Pankaj Kimball MD Non Destructive Testing Specialist: Signed TRANSVAGINAL Observed: 02/14/2018 Status: F Source: SIN NON- 1:43 PM [facility] REPOSITORY [facility] Imaging Services [address] [place] [address] Transvaginal Non- MR#: [id number] Acct: [id number] Name: VENECIA KAUR Rep #: [id number] : 1950 F 68 From: Gee Chacko MD PCP: Ilda Alvarez MD Status: REG CLI Study: Transvaginal Non- Date of Exam: 02/14/18 Exam# [id number] Ordering Dr: Franc Reddy MD STUDY: ULTRASOUND [...] CC: Ilda Alvarez MD; Franc Reddy MD Non Destructive Testing Specialist: Signed Observed: 02/06/2018 Status: F Source: SIN CULTURE, URINE 1:39 PM [facility] Order Date: 02/06/18 Order Info: 630-4 - CUUR Urine Culture Below infection level. ORGANISM 1: Mixed Gram Positive Organisms Providence Count <1000 Performed By: #### M100.0650 #### [facility] [address] [place], [address] Observed: 01/16/2018 Status: F Source: SIN CULTURE, URINE 12:25 PM [facility] Order Date: 01/16/18 Order Info: 630-4 - CUUR Specimen Source: clean catch Urine Culture ORGANISM 1: Enterococcus faecalis Providence Count 50,000-80,000 Enterococcus faecalis: REACTION Ampicillin $ <=2 S Benzylpenicillin NF 2 S Ciprofloxacin $ 1 S Gentamicin SYN-S S Levofloxacin $ 2 S Linezolid $$$$ 2 S Nitrofurantoin $ 32 S Streptomycin $ SYN-S S Tetracycline NF >=16 R Vancomycin $ 1 S (NF) indicates non-formulary drug at [facility]. Approval by Infectious Disease Specialist required before non-formulary drugs may be ordered and/or dispensed. * CLSI guidelines does not recommend testing of cephalosporins. This interpretation is deduced from Beta-lactam/penicillin results. Performed By: #### M100.0650 #### [facility] [address] [facility] [place], [address] SCREENING MAMM (CAD), Observed: 11/06/2017 Status: F Source: [facility] 9:57 AM [facility] [facility] Imaging Services [address] [place] [address] SCREENING MAMM (CAD), BILAT MR#: [id number] Acct: [id number] Name: VENECIA KAUR Rep #: [id number] : 1950 F 67 From: Charli Shanks MD PCP: Ilda Alvarez MD Status: REG CLI Study: SCREENING MAMM (CAD), BILAT Date of Exam: 11/06/17 Exam# [id number] Ordering Dr: Ilda Alvarez MD MAMMOGRAPHY - [...] Service support , CC: Ilda Alvarez MD Non Destructive Testing Specialist: Signed CARDIOLOGY VISIT Observed: 08/29/2017 Status: F Source: EAST LYME REPORT 11:13 AM [facility] [place] [facility] [address] [place] [address] OFFICE VISIT Date of Service: 06/22/17 MR#: [id number] Acct: [id number] Name: VENECIA KAUR Rep #: [id number] : 1950 Provider: Martin Perea MD Age/Sex: 67/F Location: [facility] [place] Status: Signed HPI 6 M FU: Chief [...] 06/22/17] Ejection fraction %: 60 to 64 PFSH Medical History Ascending aortic aneurysm (Chronic) history [...] this. 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) 08/29/17 1113 <Electronically signed by Martin Perea MD> Date Martin Perea MD Cosigner Signature: Date (if applicable) CC: Ilda Alvarez MD ALLERGIES ALLERGIES DATE TYPE / CODE NAME / CODE REACTION SEVERITY SOURCE 07/30/2018 Drug adhesive blisters Unknown [place] Allergy/[id number](S tape/[id number] [facility]) 4(RXNORM) Hospital Repository 07/23/2018 Miscellaneous tomatoes Hives [place] Allergy/171909467([facility]) Hospital Repository ENCOUNTERS ENCOUNTERS ADMIT/DISCHARGE ACCOUNT ADMITTING ENCOUNTER LOCATION SOURCE NUMBER CLASS 08/07/2018 [id number] [place] [facility] ing:LABSPEC Repository 08/07/2018 [id number] [place] [facility] ing:LAB.FUTUR Repository E 07/23/2018 [id number] Ambulatory BMSBuilding:B Sin 3 [facility] Repository 07/23/2018 [id number] Ambulatory BMSBuilding:B [place] 4 MS.[facility] Repository 07/23/2018 [id number] Ambulatory BMS Sin 8 [facility] Repository 07/23/2018/ [id number] Ambulatory Sin Sin 9 6 [facility] ing:CLSP Repository 07/23/2018/ [id number] Ambulatory BMSBuilding:W [place] 9 2 [facility] Repository 07/19/2018 [id number] Amb[place] [facility] ing:LAB Repository 07/19/2018/ [id number] Ambulatory BMSBuilding:B [place] 9 5 [facility] Repository 07/05/2018 [id number] Ambulatory BMSBuilding:B Sin 1 [facility] Repository 07/04/2018 [id number] Ambulatory BMSBuilding:B [place] 7 [facility] Repository 07/04/2018 [id number] Ambulatory [place] Sin 6 [facility] ing:CVS Repository 07/04/2018 [id number] Ambulatory BMSBuilding:W [place] 9 [facility] Repository 06/19/2018/ [id number] Ambulatory BMSBuilding:B [place] 8 8 [facility] Repository 06/12/2018 [id number] Ambulatory [place] Sin 9 [facility] Hospital ing:LABSPEC Repository 05/22/2018 [id number] Ambulatory [place] Sin 3 [facility] ing:OPBD Repository 04/04/2018 [id number] Ambulatory Sin [place] 0 [facility] ing:PSN Repository 03/17/2018/ [id number] Emergency [place] 8 2 [facility] Hospital ing:ED Repository 02/14/2018 [id number] Ambulatory [place] Sin 3 [facility] ing:OPUS Repository 02/06/2018 [id number] Ambulatory Sin [place] 2 [facility] ing:MTLAB Repository 01/16/2018 [id number] Ambulatory [place] Sin 2 [facility] ing:LABSPEC Repository 11/06/2017 [id number] Ambulatory [place] 1 [facility] ing:OPBI Repository 06/22/2017/ [id number] Ambulatory BMSBuilding:B [place] 7 9 [facility] Repository PAYERS PAYERS ENCOUNTER GUARANTOR PAYER SUBSCRIBER SOURCE 08/07/2018 VENECIA [id number] Primary VENECIA MEADE Insurance:IMELDA BARRONOB: [facility] [id number] Hospital [address]Kaq: [facility] Number: Repository [phone] () [id number] e Date:2009-95-46[address], [place] [address]CW: 08/07/2018 Secondary NOT GIVENUNK [place] Insurance:SELF PAY [facility] Hospital Number: Effective Repository Date:2018-08-07 08/07/2018 VENECIA [id number] Primary VENECIA Danelle [place] Insurance:IMELDA LINCOLNDOB: [facility] [id number] Hospital 89991Tcc: (330) [facility] Number: Repository [phone] () [id number] e Date:7994-37-47LV [address], [place] [address]MK: 08/07/2018 Secondary NOT GIVENUNK [place] Insurance:SELF PAY [facility] Number: Effective Repository Date:2018-08-07 07/23/2018 TREVER D Primary VENECIA Vogt [id number] Insurance:IMELDA LINCOLNDOB: [facility] [id number] [facility] Number: Repository [id number]: [phone]) [id number] [phone] () e Date:8615-15-73LF [address] [address]CT: 07/23/2018 Secondary NOT GIVENUNK [place] Insurance:SELF PAY [facility] Hospital Number: Effective Repository Date:2018-07-23 07/23/2018 TREVER D Primary VENECIA Vogt [id number] Insurance:IMELDA LINCOLNDOB: [facility] [id number] [facility] Number: Repository [id number]: (330) [id number] [phone] () e Date:8990-36-08FW [address], [place] [address]YO: 07/23/2018 Secondary NOT GIVENUNK [place] Insurance:SELF PAY [facility] Hospital Number: Effective Repository Date:2018-07-23 07/23/2018 TREVER D Primary [place]elle [place] [id number] Insurance:IMELDA LINCOLNDOB: [facility] [id number] Aberdeen Medical CenterOPolmercyone [facility] Number: Repository [id number]: (330) [id number] [phone] () e Date:3996-41-90PU [address] [address]AN: 07/23/2018 Secondary NOT GIVENUNK [place] Insurance:SELF PAY [facility] Hospital Number: Effective Repository Date:2018-07-23 07/23/2018 TREVER D Primary VENECIA Danelle Sin [id number] Insurance:IMELDA LINCOLNDOB: [facility] [id number] [facility] Number: Repository [id number]: (330) [id number] [phone] () e Date:8834-83-52TA [address] [address]BU: 07/23/2018 Secondary NOT GIVENUNK Sin Insurance:SELF PAY [facility] Number: Effective Repository Date:2018-07-05 07/23/2018 TREVER D Primary VENECIA Vogt [id number] Insurance:IMELDA LINCOLNDOB: [facility] [id number] Health [facility] Number: Repository [id number]: (330 [id number] [phone] () e Date:0971-07-44QC [address] [address]RB: 07/23/2018 Secondary NOT GIVENUNK [place] Insurance:SELF PAY [facility] Number: Effective Repository Date:2018-07-23 07/19/2018 TREVER D Primary VENECIA Danelle Vogt [id number] Insurance:IMELDA LINCOLNDOB: [facility] [id number] Aberdeen Medical CenterOPolmercyone [facility] Number: Repository [id number]: (330 [id number] [phone] (HP) e Date:3204-81-41NH [address] [address]MZ: 07/19/2018 Secondary NOT GIVENUNK Sin Insurance:SELF PAY [facility] Hospital Number: Effective Repository Date:2018-07-19 07/19/2018 TREVER D Primary VENECIA Vogt [id number] Insurance:IMELDA LINCOLNDOB: [facility] [id number] Health [facility] Number: Repository [address]Icc: 330 [id number] [phone] () e Date:4680-43-10GR [address], [place] [address]NS: 07/19/2018 Secondary NOT GIVENUNK [place] Insurance:SELF PAY [facility] Hospital Number: Effective Repository Date:2018-07-19 07/05/2018 TREVER D Primary VENECIA Mcclendon [place] [id number] Insurance:IMELDA LINCOLNDOB: [facility] [id number] Health Brunswick Medical Center Number: Repository [id number]: 330 [id number] [phone] () e Date:1954-39-33DI [facility] [address] [address]OH: 07/05/2018 Secondary NOT GIVENUNK Sin Insurance:SELF PAY [facility] Hospital Number: Effective Repository Date:2018-07-05 07/04/2018 TREVER D Primary VENECIA Vogt [id number] Insurance:IMELDA LINCOLNDOB: [facility] [id number] Health Brunswick Medical Center Number: Repository [id number]: 330 [id number] [phone] () e Date:8349-50-72TG [address] [address]QI: 07/04/2018 Secondary NOT GIVENUNK Sin Insurance:SELF PAY [facility] Hospital Number: Effective Repository Date:2018-07-04 07/04/2018 TREVER D Primary VENECIA Danelle Sin [id number] Insurance:IMELDA LINCOLNDOB: [facility] [id number], [place] HMOPolicy Number: Repository [id number]: (330) [id number] [phone] () e Date:9962-10-77QN [address] [address]XM: 07/04/2018 Secondary NOT GIVENUNK [place] Insurance:SELF PAY [facility] Hospital Number: Effective Repository Date:2018-06-19 07/04/2018 TREVER D Primary VENECIA Vogt [id number] Insurance:IMELDA LINCOLNDOB: [facility] [id number] Moore Regional Hospital - [facility] Number: Repository [id number]: (330) [id number] [phone] () e Date:1229-42-23YC [address] [address]JD: 07/04/2018 Secondary NOT GIVENUNK [place] Insurance:SELF PAY [facility] Hospital Number: Effective Repository Date:2018-07-04 06/19/2018 TREVER D Primary VENECIA Danelle Sin [id number] Insurance:IMELDA LINCOLNDOB: [facility] [id number] Health [facility] Center Number: Repository [id number]: (330) [id number] [phone] () e Date:2736-06-85JX [address] [address]XK: 06/19/2018 Secondary NOT GIVENUNK Sin Insurance:SELF PAY [facility] Number: Effective Repository Date:2018-06-19 06/12/2018 TREVER D Primary VENECIA Mcclendon Sin [id number] Insurance:IMELDA LINCOLNDOB: [facility] 0830-01-38HZTSanford Aberdeen Medical CenterOPolmercyone [facility] Number: Repository [id number]: (330) [id number] [phone] () e Date:6911-94-30AF [address] [address]UG: 06/12/2018 Secondary NOT GIVENUNK Sin Insurance:SELF PAY [facility] Hospital Number: Effective Repository Date:2018-06-12 05/22/2018 TREVER D Primary VENECIA Vogt [id number] Insurance:IMELDA LINCOLNDOB: [facility] [id number] Health Brunswick Medical Center Number: Repository [address]Hdh: 330 [id number] [phone] () e Date:1670-84-80MQ [address] [address]HP: 05/22/2018 Secondary NOT GIVENUNK Sin Insurance:SELF PAY [facility] Number: Effective Repository Date:2018-05-08 04/04/2018 TREVER D Primary VENECIA Vogt [id number] Insurance:IMELDA LINCOLNDOB: [facility] [id number] Health Brunswick Medical Center Number: Repository [id number]: 330 [id number] [phone] () e Date:5093-97-64PW [facility] [address] [address]GZ: 04/04/2018 Secondary NOT GIVENUNK Sin Insurance:SELF PAY [facility] Hospital Number: Effective Repository Date:2017-12-21 03/17/2018 Trever D Primary VENECIA Vogt [id number] Insurance:IMELDA LINCOLNDOB: [facility] [id number] Health [facility] Number: Repository [address]Kng: 330 [id number] [phone] () e Date:3157-15-27DA [address], [place] [address]PX: 03/17/2018 Secondary NOT GIVENUNK [place] Insurance:SELF PAY [facility] Hospital Number: Effective Repository Date:2018-03-17 02/14/2018 Trever D Primary VENECIA Danelle Vogt [id number] Insurance:IMELDA LINCOLNDOB: [facility] [id number] Lakes Hospital & Care CenterOPolmercyone [facility] Number: Repository [address]Vqu: (330 [id number] [phone] (HP) e Date:5657-03-21QT [address] [address]SA: 02/14/2018 Secondary NOT GIVENUNK [place] Insurance:SELF PAY [facility] Number: Effective Repository Date:2018-02-13 02/06/2018 Trever D Primary VENECIA K [place] [id number] Insurance:IMELDA LINCOLNDOB: [facility] [id number] Health Chathamicy Number: Repository [id number]: (330) [id number] [phone] () e Date:8484-06-37KF [address] [address]RT: 02/06/2018 Secondary NOT GIVENUNK Sin Insurance:SELF PAY [facility] Hospital Number: Effective Repository Date:2018-02-06 01/16/2018 Trever D Primary VENECIA K [place] [id number] Insurance:IMELDA LINCOLNDOB: [facility] [id number] Health Huntersville Number: Repository [id number]: (330) [id number] [phone] () e Date:0780-17-75SL [address] [address]JJ: 01/16/2018 Secondary NOT GIVENUNK [place] Insurance:SELF PAY [facility] Number: Effective Repository Date:2018-01-16 11/06/2017 Trever D Primary VENECIA K [place] [id number] Insurance:IMELDA LINCOLNDOB: [facility] [id number] Health Huntersville Number: Repository [id number]: [id number] [phone] e Date:9201-55-13LL () [address], [place] [address]DM: 11/06/2017 Secondary NOT GIVENUNK Sin Insurance:SELF PAY [facility] Number: Effective Repository Date:2017-10-11 06/22/2017 Trever [id number] Insurance:IMELDA LINCOLNDOB: [facility] [id number] Health [facility]tersville Number: Repository [address]Ncq: 330 [id number] [phone] () e Date:8357-50-62UB [address], [place] [address]SC: 06/22/2017 Secondary NOT GIVENUNK Sin Insurance:SELF PAY [facility] Number: Effective Repository Date:2017-06-17
== END ==
PROVIDERS: Family Provider Family Medicine; PCP Family Medicine; Referring Provider Internal Medicine Cardiovascular Disease; Visit Provider Internal Medicine Cardiovascular Disease
DX: R07.9 Chest pain, unspecified (principal); Z98.890 Other specified postprocedural states
CPT/HCPCS: 78452; 93017; 93306; A9500; Q9957; A4216; C8929

== ENCOUNTER → 2018-07-19 14:23 | Outpatient (CLI) | payer MEDICARE, SELFPAY ==
[2018-07-19 13:56] VITALS: BMI 30.4
[2018-07-19 15:39] LABS: Absolute Neutrophil Count 2.8 X10^3/uL (2.0-7.7); Basophil# 0.04 X10^3/uL; Basophil% 0.8 % (0-1); Eosinophil# 0.18 X10^3/uL; Eosinophils% 3.5 % (0-5); Hematocrit 42.1 % (37-47); Hemoglobin 13.4 g/dl (12.0-15.0); Lymphocyte % 28.8 % (19-41); Mean Corp Hgb Conc 31.8 g/gl (32-36); Mean Corpuscular Hgb 30.1 pg (27.0-32.0); Mean Corpuscular Volume 94.6 fL (81-99); Mean Platelet Vol. 10.5 fl (6.2-12.0); Monocyte# 0.67 X10^3/uL; Monocyte% 12.9 % (0-10); Neutrophil # 2.81 X10^3/uL (2.7-7.7); Neutrophil % 53.8 % (47-70); Platelet Count 187 K/mm3 (150-450); RBC Distribution Width CV 13.8 % (11.6-14.6); Red Blood Count 4.45 M/mm3 (4.2-5.4); White Blood Count 5.2 K/mm3 (4.4-11.0)
[2018-07-19 16:02] LABS: POSITIVE COUNT NO; POSITIVE DIFFERENTIAL NO; POSITIVE MORPHOLOGY NO
[2018-07-19 16:14] LABS: Anion Gap 9 (5-15); BUN 28 mg/dL (7-18); BUN/Creat Ratio 29.9 RATIO (10-20); Chloride 106 mmol/L (98-107); Creatinine, Serum 0.94 mg/dL (0.55-1.02); EST Glomerular Filtration Rate 63 mL/min (>60); Est Glom Filt Rate - Afr Amer 76 mL/min (>60); Glucose 80 mg/dL (74-106); Sodium Level 143 mmol/L (136-145)
== END ==
PROVIDERS: Family Provider Family Medicine; PCP Family Medicine; Referring Provider Internal Medicine Cardiovascular Disease; Visit Provider Internal Medicine Cardiovascular Disease
DX: R94.39 Abnormal result of other cardiovascular function study (principal); R07.9 Chest pain, unspecified; Z95.2 Presence of prosthetic heart valve; I35.0 Nonrheumatic aortic (valve) stenosis; E78.5 Hyperlipidemia, unspecified
CPT/HCPCS: 36415; 80048; 85025

== ENCOUNTER 2018-07-23 08:52 | Day surgery (SDC) | payer MEDICARE, SELFPAY ==
[2018-06-19 10:41] VITALS: BMI 30.4
[2018-07-19 13:56] VITALS: BMI 30.4
--- NOTE | 2018-07-19 14:14 | RAD_ITS ---
STUDY: X-RAY CHEST REASON FOR EXAM: Female, 68 years old. Substernal chest pain TECHNIQUE: PA and lateral views of the chest. COMPARISON: 08/05/2013 FINDINGS: There are interstitial fibrotic changes of the lungs. There is no demonstrated pleural abnormality. Sternal cerclage wires and vascular clips are present from a prior sternotomy and coronary artery bypass graft procedure (CABG). Normal mediastinum and judith. Normal visualized pulmonary arteries. Normal visualized aortic arch and descending thoracic aorta. Normal visualized thoracic spine. Normal visualized ribs, clavicles, and shoulders. There is no demonstrated abnormality of the visualized soft tissue structures of the upper abdomen. RAD/Chest PA and Lateral IMPRESSION: No acute pulmonary process Electronically Signed: Gary Pickard MD at 12:57 EST , Service support ,
[2018-07-20 12:23] VITALS: BMI 30.4
--- NOTE | 2018-07-23 09:28 | PCM.HP.BLA ---
Problem List (1) Abnormal nuclear stress test Status: Acute (2) H/O aortic valve replacement Status: Resolved History and Physical Date of Admission: 07/23/18 HPI Details: VENECIA KAUR, is a 68 F who presents to the office today for a heart cath for an abnormal stress test. She has a history of aortic valve disease with aortic valve replacement in 2009 with a Fariba Garza bovine pericardial valve. She was in our office a month ago for a routine visit and noted epigastric discomfort approx 2 months ago. . She notes that she had stopped walking into town a few months ago because of chest pain. She has not had any recent discomfort or worsening SOB. She does not have lightheadedness/dizziness. She does not have any palpitations. Echocardiogram demonstrated Normal LV size. Left ventricular systolic function is normal. The estimated ejection fraction is 60 %. Stage 1 diastolic dysfunction. Mean aortic valve gradient 8 mmHg. Contrast injection was performed. Compared to previous study, the left ventricular systolic function is the same. Stress test demonstrated Exercise myocardial perfusion stress test with subtle mid anterior perfusion wall defect at a moderate workload. Preserved ejection fraction. Intake BP: 126/70 HR: 65 RR:16 Allergies tomatoes Allergy (Severe, Uncoded 03/17/18 16:44) unknown Medications ascorbic acid (vitamin C) 1,000 mg tablet 1 g PO QDAY tab 06/20/17 [History Confirmed 07/20/18] aspirin 81 mg tablet,delayed release 81 mg PO QDAY 06/20/17 [History Confirmed 07/20/18] calcium polycarbophil 625 mg tablet 1,250 mg PO QDAY 06/20/17 [History Confirmed 07/20/18] cranberry 400 mg capsule 400 mg PO QDAY 06/20/17 [History Confirmed 07/20/18] multivitamin tablet 1 tab PO QDAY 06/20/17 [History Confirmed 07/20/18] vitamin B complex capsule 1 cap PO QDAY 06/20/17 [History Confirmed 07/20/18] vitamin E (dl, acetate) 1,000 unit capsule 1,000 unit PO QDAY 06/20/17 [History Confirmed 07/20/18] garlic 5,000 mcg tablet 5 mg PO QDAY 06/22/17 [History Confirmed 07/20/18] cinnamon bark 500 mg capsule 500 mg PO DAILY cap 06/19/18 [History Confirmed 07/20/18] clopidogrel 75 mg tablet 75 mg PO DAILY #30 tab 07/19/18 [Rx Confirmed 07/20/18] PFSH Medical History Non-rheumatic aortic stenosis (Chronic) Hyperlipidemia (Chronic) Ascending aortic aneurysm (Chronic) Surgical History H/O aortic valve replacement (Resolved 08/25/09) H/O breast biopsy (Resolved) History of appendectomy (Resolved) History of left heart catheterization (Resolved 08/06/09) Family History Father No problems noted. Mother , of CHF Diabetes CAD (coronary artery disease) Brother Hx of deep venous thrombosis Social History Smoking Status: Never smoker alcohol intake: never ROS Const Const: Negative for fatigue, weakness, night sweats, excessive sweating, frequent falls, headache(s) or daytime sleepiness Eyes Eyes: Negative for loss of peripheral vision, transient loss of vision, blind spots, double vision or blurry vision ENT ENT: Negative for headache(s) or balance problems Cardio Chest Pain: Yes (epigastic discomfort) Palpitations: No Edema: None Muscle aches with walking: None Resp Respiratory: Negative for SOB at rest, SOB orthopnea\SOB lying down, Cough, paroxysmal nocturnal dyspnea or SOB with activity GI GI: Negative nausea, vomiting, heartburn, black,tarry stools or bright, red blood in stools : Negative for hematuria Musc Musc: Negative for balance problems, muscle aches/ myalgia, muscle weakness or joint pain Skin Skin: Negative non-healing lesions, unusual bruising or rash Neuro Neuro: Negative for weakness, frequent falls, headache(s), double vision or blurry vision Santhosh Hematologic/Lymphatic: Negative for easy bruising or easy bleeding Endo Endo: Negative for fatigue or excessive sweating Psych Psych: Negative for anxiety or depression Allergy Allergy/Immunology: Negative for rash Cardiology Exam Const Appearance: cooperative, healthy appearing, well developed, well groomed and no acute distress Nutritional Appearance: well nourished and average body habitus Orientation: alert, awake and oriented x3 Head Head: normal to inspection, normocephalic and atraumatic Ears: hearing grossly normal bilaterally and external ears normal Nose: external nose normal, nasal mucous membranes and turbinates normal, nares normal, septum normal, no nasal discharge Face and Sinus: face symmetric Mouth: oral mucosae normal, tongue normal, oropharynx normal and moist mucous membranes Teeth and gingiva: dentition normal Throat: posterior oropharynx normal, tonsils normal and uvula midline Eyes General: appearance normal, both eyes and all related structures Eyelids: eyelids normal Conjunctivae: conjunctivae normal Pupils: PERRL, normal by confrontation and accommodation normal EOM: EOM intact bilaterally Neck Neck: normal visual inspection, trachea midline and no JVD JVD: +5 Carotids: normal carotid upstroke and bounding pulses Chest Chest inspection: normal inspection of the chest, symmetric chest movement and normal respiratory effort Auscultation: Bilateral: Clear to Auscultation Cardio Palpation: normal PMI Rate: regular rate Rhythm: regular rhythm Heart sounds: S1 normal, S2 normal and normal, physiologic split S2; negative rub, gallop or murmur Murmur: Grade 1/6 and ZAHRA loudest primary aortic area GI GI: normal to inspection, soft, no hepatosplenomegaly and bowel sounds present Neuro General: alert, awake, oriented x3, no focal sensory deficit, gait normal and moves all extremities Skin Skin: no rashes or lesions noted Extremities Pulses: Normal: Right Femoral Pulse, Left Femoral Pulse, Right Dorsalis Pedis Pulse, Left Dorsalis Pedis Pulse, Right Posterior Tibial Pulse, Left Posterior Tibial Pulse, Right Radial Pulse, Left Radial Pulse Lower Extremity Edema: None: Bilateral Musculoskel Musculoskeletal: No joint tenderness Psych Psychological: normal affect Assessment & Plan Problems 1. Abnormal nuclear stress test R94.39 2. H/O aortic valve replacement Z95.2 Pt will undergo a heart cath today for further evaluate. She will follow up accordingly.
--- NOTE | 2018-07-23 11:23 | CL.D_ITS ---
Patient Name: VENECIA KAUR Study Date: 07/23/2018 Performing: Martin Perea MD Ht: 57.08 inches 145 cm : 1950 Wt: 141.1 lbs 64 kg Age: 68 Gender: female BSA: 1.55 PROCEDURE(S) PERFORMED [id number]/[facility] CLINICAL PROFILE AND INDICATIONS Indications: Suspected CAD Heart Failure: None Stress/Imaging Stress Test w/SPECT MPI: Yes Result: IndeterminantStress Test with SPECT MPI: Inde terminant CAD Presentations: Symptom unlikely to be ischemic. CONCLUSIONS Normal coronary arteries RECOMMENDATIONS Medical therapy DESCRIPTION OF PROCEDURE The patient arrived to the procedure lab. The risks and benefits of the procedure as well as a full d escription of our services here and current unavailability of surgical backup were fully explained to the patient and/or their significant other prior to the catheterization. The Timeout was completed, verifying the correct patient and procedure. The patient's procedural site was prepped and draped in the usual fashion. Local anesthetic was given subcutaneously to right radial region with Lidocaine 2% . Using a modified Seldinger technique, arterial access was obtained via the right radial artery, a 6 Fr sheath was inserted. Left Coronary Artery selective angiography was performed in multiple views u sing a 5 Fr. 4.0 Allen catheter. Right Coronary Artery selective angiography was then performed in mu ltiple views using a 5 Fr. 4.0 Allen catheter.The arterial sheath was pulled and a TR Band was applie d for hemostasis CORONARY ANGIOGRAPHY DOMINANCE: Right Dominant LEFT HEART ASSESSMENT Left Ventricular Ejection Fraction: by Echo 60 % Normal Left Ventricular systolic function LEFT MAIN: Angiographically normal LEFT ANTERIOR DECENDING ARTERY: Angiographically normal CIRCUMFLEX ARTERY: Angiographically normal RIGHT CORONARY ARTERY: Angiographically normal COMPLICATIONS No Complications PROCEDURE MEDICATIONS Versed 1 mg IV Fentanyl 50 mcg IV Oxygen: 2 L/min via nasal cannula Heparin given IA ^FreeText^ 07/23/2018 11:07:50 IV Bolus: .9 NaCl ml total 250 cc's 07/23/2018 11:00:01 SUMMARY OF HEMODYNAMIC DATA Time AIR REST ECG 09:15:18 AO 99/55 (74) SA 11:08:51 Signed By Martin Perea MD On 07/23/2018 11:22:16 Martin Perea MD
== END 2018-07-23 14:52 | disposition home or self-care (01) ==
LOC: CLSP 08:53
PROVIDERS: Family Provider Family Medicine; PCP Family Medicine; Referring Provider Internal Medicine Cardiovascular Disease; Visit Provider Internal Medicine Cardiovascular Disease
DX: R94.39 Abnormal result of other cardiovascular function study (principal); Z95.2 Presence of prosthetic heart valve; I71.4 Abdominal aortic aneurysm, without rupture; I35.0 Nonrheumatic aortic (valve) stenosis; E78.5 Hyperlipidemia, unspecified; Z79.82 Long term (current) use of aspirin
CPT/HCPCS: 71046; 93454; 99152; 99153; J7040; Q9967; C1769; C1894

== ENCOUNTER → 2018-08-07 14:18 | Outpatient (CLI) | payer MEDICARE, SELFPAY ==
[2018-07-20 12:23] VITALS: BMI 30.4
--- OUTSIDE RECORDS SUMMARY | 2018-10-09 19:56 | XMS RPT_ITS ---
:1950 Author Organization OHIP Support Name Relationship Address Phone TREVER KAUR Unavailable [address] + [place] [address] R Unavailable Unavailable Unavailable NATASHA TREVER Unavailable [address] + [place] [address] R Unavailable Unavailable Unavailable NATASHA TREVER Unavailable [address] + [place] [address] R Unavailable Unavailable Unavailable NATASHA TREVER Unavailable [address] + [place] [address] R Unavailable Unavailable Unavailable NATASHA TREVER Unavailable [address] + [place] [address] R Unavailable Unavailable Unavailable NATASHA TREVER Unavailable [address] + [place] [address] R Unavailable Unavailable Unavailable NATASHA TREVER Unavailable [address] + [place] [address] R Unavailable Unavailable Unavailable NATASHA TREVER Unavailable [address] + [place] [address] R Unavailable Unavailable Unavailable NATASHA TREVER Unavailable [address] + [place] [address] R Unavailable Unavailable Unavailable NATASHA TREVER Unavailable [address] + [place] [address] R Unavailable Unavailable Unavailable NATASHA TREVER Unavailable [address] + [place] [address] R Unavailable Unavailable Unavailable NATASHA TREVER Unavailable [address] + [place] [address] R Unavailable Unavailable Unavailable NATASHA TREVER Unavailable [address] + [place] [address] R Unavailable Unavailable Unavailable NATASHA, TREVER Unavailable [address] + [place] [address] R Unavailable Unavailable Unavailable NATASHA TREVER Unavailable [address] + [place] [address] R Unavailable Unavailable Unavailable NATASHA, TREVER Unavailable [address] + [place] [address] R Unavailable Unavailable Unavailable TREVER KAUR Unavailable [address] + [place] [address] R Unavailable Unavailable Unavailable R Unavailable Unavailable Unavailable R Unavailable Unavailable Unavailable R Unavailable Unavailable Unavailable R Unavailable Unavailable Unavailable R Unavailable Unavailable Unavailable R Unavailable Unavailable Unavailable R Unavailable Unavailable Unavailable Care Team Providers Name Role Phone Eliazar, [place] Attending Unavailable Eliazar, [place] Referring Unavailable Jolliff, Ilda Primary Care Unavailable Erika Moya Attending Unavailable Erika Moya Attending Unavailable Eliazar, Martin Attending Unavailable Eliazar, [place] Referring Unavailable Jolliff, Ilda Primary Care Unavailable Marquita Chandra Attending Unavailable Jolliff, Ilda Referring Unavailable Eliazar, Martin Attending Unavailable Eliazar, [place] Referring Unavailable Jolliff, Ilda Primary Care Unavailable Marquita Chandra Attending Unavailable Marquita Chandra Attending Unavailable Eliazar, [place] Referring Unavailable Jolliff, Ilda Primary Care Unavailable Eliazar, Martin Consulting Unavailable Erika Moya Attending Unavailable Eliazar, Martin Attending Unavailable Eliazar, Martin Referring Unavailable Jolliff, Ilda Attending Unavailable Jolliff, Ilda Primary Care Unavailable Jolliff, Ilda Attending Unavailable Jolliff, Ilda Primary Care Unavailable Eliazar, [place] Attending Unavailable Eliazar, [place] Referring Unavailable Jolliff, Ilda Attending Unavailable Jovi, Chris Primary Care Unavailable Jolliff, Ilda Attending Unavailable Franc Reddy Attending Unavailable Reddy, Franc Referring Unavailable Jolliff, Ilda Primary Care Unavailable Eliazar, [place] Attending Unavailable Jovi, Chris Referring Unavailable Jovi, Chris Primary Care Unavailable Reddy, Franc Attending Unavailable Jolliff, Ilda Primary Care Unavailable Jolliff, Ilda Primary Care Unavailable Kimball, Pankaj Attending Unavailable Jolliff, Ilda Attending Unavailable Jolliff, Ilda Referring Unavailable Jolliff, Ilda Primary Care Unavailable Jolliff, Ilda Attending Unavailable Jolliff, Ilda Referring Unavailable Jolliff, Ilda Primary Care Unavailable Nikki Trotter Attending Unavailable Nikki Trotter Referring Unavailable Jolliff, Ilda Primary Care Unavailable Eliazar, Martin Attending Unavailable Jochon, Ilda Referring Unavailable PROBLEMS PROBLEMS DATE TYPE CONDITION / CODE ATTENDING STATUS SOURCE Unknown R07.9 - Chest pain, Eliazar, Martin Active Sin 9 unspecified / Community R07.9(ICD-10) Hospital Repository Unknown Z98.890 - Other specified Eliazar, [place] Active Mittie 8 postprocedural states / Community Z98.890(ICD-10) Hospital Repository Unknown E78.5 - Hyperlipidemia, Eliazar, Martin Active Mittie 8 unspecified / Community E78.5(ICD-10) Hospital Repository Unknown S32.000A - Wedge Jochon, Ilda Active Sin 8 compression fracture of Community unspecified lumbar Hospital vertebra, initial Repository encounter for closed fracture / S32.000A(ICD-10) Unknown R20.2 - Paresthesia of Antonio, Ilda Active Mittie 8 skin / R20.2(ICD-10) [facility] Hospital Repository Unknown S32.010A - Wedge Kimball, Pankaj Active Mittie 8 compression fracture of [facility] first lumbar vertebra, Hospital initial encounter for Repository closed fracture / S32.010A(ICD-10) Unknown R39.15 - Urgency of Jochon Ilda Active Sin 8 urination / Community R39.15(ICD-10) Hospital Repository Unknown E78.00 - Pure Eliazar, [place] Active Sin 7 hypercholesterolemia, Community unspecified / Hospital E78.00(ICD-10) Repository Unknown E78.0 - Pure Eliazar, [place] Active Sin 7 hypercholesterolemia / Community E78.0(ICD-10) Hospital Repository PROCEDURES PROCEDURES No Procedure Records FoundRESULTS RESULTS Observed: 08/07/2018 Status: F Source: [place] CULTURE, URINE 11:15 AM [facility] REPOSITORY Urine Culture ORGANISM 1: Escherichia coli [place] Count >100,000 Escherichia coli: REACTION Ampicillin $ [...] <=20 S (NF) indicates non-formulary drug at [facility]. Approval by Infectious Disease Specialist required before non-formulary drugs may be ordered and/or dispensed. Performed By: #### M100.0650 #### [facility] [address] [place], [address] OFFICE VISIT REPORT Observed: 07/23/2018 Status: F Source: [place] 3:38 PM [facility] REPOSITORY [facility] Services [address] [place] [address] OFFICE VISIT Date of Service: 07/19/18 MR#: [id number] Acct: [id number] Patient: VENECIA KAUR Rep #: [id number] : 1950 Provider: Marquita Chandra Age/Sex: 68/F [place] [facility] [place]: Signed Intake Vital Signs07/19/18 Body Mass [...] AND PHYSICAL Observed: 07/23/2018 Status: F Source: [place] EXAM 9:36 AM [facility] REPOSITORY [facility] Medical Records Department [address] [place] [address] History and Physical 07/23/18927 MR#: [id number] Acct: [id number] Name: VENECIA KAUR Rep #: [id number] : 1950 68 From: Marquita GAN PCP: Ilda Alvarez MD Status: REG [facility] Location: [facility] Problem List (1) Abnormal nuclear stress [...] 07/19/2018 Status: F Source: [place] 2:51 PM [facility] REPOSITORY TYPE CODE TESTS RESULT OUT OF [...] Lymph 1.50 Performed By: #### L100.0100 #### [facility] [address] [place], [place], [address] BASIC METABOLIC Collected: 07/19/2018 Status: F Source: [place] PROFILE (BMP) 2:51 PM [facility] REPOSITORY TYPE CODE TESTS RESULT OUT OF [...] GAP 9 Performed By: #### L500.2500 #### [facility] [address] [facility] [place], [address] CHEST PA AND LATERAL Observed: 07/19/2018 Status: F Source: [place] 2:06 PM [facility] REPOSITORY [facility] Imaging Services [address] [place] [address] Chest PA and Lateral MR#: [id number] Acct: [id number] Name: VENECIA KAUR Rep #: [id number] : 1950 F 68 From: Abel Pickard MD PCP: Ilda Alvarez MD Status: PRE COC Study: Chest PA and Lateral Date of Exam: 07/19/18 Exam# [id number] Ordering Dr: aMrtin Perea MD STUDY: X-RAY CHEST REASON FOR [...] CC: Ilda Alvarez MD; Martin Perea MD Folder Inspector: Signed ECHO, COMPLETE W/ Observed: 07/04/2018 Status: F Source: [place] CONTRAST 1:04 PM [facility] REPOSITORY [facility] Cardiovascular Services [address] [place] [address] Echo Complete W/ Contrast 07/04/18 1038 MR#: [id number] Acct: [id number] Name: VENECIA KAUR Rep #: [id number] : 1950 68 From: Martin Perea MD [...] Dictated: 07/04/18 1038 Date Transcribed: 07/04/18 1303 Folder Inspector: Signed STRESS REPORT Observed: 07/04/2018 Status: F Source: [place] 12:59 PM [facility] REPOSITORY [facility] [place] [address] [address] MR#: [id number] Acct: [id number] Name: VENECIA KAUR Rep #: [id number] : 1950 68 From: Martin Perea MD Primary Care: Ilda Alvarez MD [...] Date Dictated: 07/04/18 1253 Date Transcribed: 07/04/181252 Folder Inspector: CO Signed CARDIOLOGY VISIT Observed: 06/19/2018 Status: F Source: [place] REPORT 10:58 AM [facility] REPOSITORY [facility] [address] [place] [address] OFFICE VISIT Date of Service: 06/19/18 MR#: [id number] Acct: [id number] Name: VENECIA KAUR Rep #: [id number] : 1950 Provider: Martin Perea MD Age/Sex: 68/F Location: [facility] [place] Status: Signed [facility] Chief Complaint: Follow up Details: VENECIA KAUR, [...] brachial Intake Visit Reasons: 1 Y FU Speech And Hearing Director Required: No Accompanied by: none Is patient [...] mm Fariba-Garza bovine pericardial aortic valve at [facility] Plan She is status post aortic [...] 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 Orders 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) Coding Level of Care Code Off vis,est,level 4 Diagnoses aortic valve replacement Hyperlipidemia E78.5 Chest pain R07.9 Coding Level of Care Code Off vis,est,level 4 Diagnoses aortic valve replacement Hyperlipidemia E78.5 Chest pain R07.9 06/19/18 1058 <Electronically signed by Martin Perea MD> Date Martin Perea MD Cosigner Signature: Date (if applicable) CC: Ilda Alvarez MD Observed: 06/12/2018 Status: F Source: [place] CULTURE, URINE 1:40 PM [facility] REPOSITORY Urine Culture ORGANISM 1: Escherichia coli [place] Count >100,000 Escherichia coli: REACTION Amoxacillin/Clavulanic Acid [...] <=20 S (NF) indicates non-formulary drug at [facility]. Approval by Infectious Disease Specialist required before non-formulary drugs may be ordered and/or dispensed. Performed By: #### M100.0650 #### [facility] [address] [facility] [place], [address] DEXA BONE DENSITY Observed: 05/22/2018 Status: F Source: [place] STUDY 10:56 AM [facility] REPOSITORY [facility] Imaging Services [address] [place] [address] Dexa Bone Density Study MR#: [id number] Acct: [id number] Name: VENECIA KAUR Rep #: [id number] : 1950 F 68 From: Mitchell Samuel MD PCP: Ilda Alvarez MD Status: REG CLI Study: Dexa Bone Density Study Date of Exam: 05/22/18 Exam# [id number] Ordering Dr: Ilda Alvarez MD STUDY: DUAL [...] Mitchell Samuel MD at 9:24 EST Tel [phone], Service support , CC: Ilda Alvarez MD Folder Inspector: Signed NCS AND/OR EMG Observed: 04/04/2018 Status: F Source: [place] PATIENT 10:21 AM [facility] REPOSITORY [facility] Pulmonary Services/Neurology [address] [place] [address] MR#: [id number] Acct: [id number] Name: VENCEIA KAUR Rep #: [id number] : 1950 68 From: Gee Ernandez MD Referring Dr: Ilda Alvarez MD Status: REG CLI Ordering Dr: Date: Location: [facility] Sex: F C NCS and/or EMG [...] Dictated: 04/04/18 1004 Date Transcribed: 04/04/18 1004 Folder Inspector: NF Signed EMERGENCY DEPARTMENT Observed: 03/17/2018 Status: F Source: [place] SUMMARY 9:23 PM [facility] REPOSITORY [facility] Medical Records Department [address] [place] [address] Emergency Department Summary 03/17/182121 MR#: [id number] Acct: [id number] Name: VENECIA KAUR Rep #: [id number] : 1950 68 From: Pankaj Kimball MD PCP: Ilda Alvarez MD Status: REG ER - ER Visit Summary Date of Service: 03/17/18 Chief Complaint: [] History of Present Illness: The patient is a 68 F [] Physical Examination: [] Test Results: [] Emergency Department Course and Treatment: [] Treatment Plan: [] Disposition: [] Impression: [] This note was generated with CallmyName dictation software. It may contain incorrect words, [...] your Primary Care Provider. Call [facility] ([phone]) or report to the closest Emergency Room. Call 911 if necessary. 03/17/182122 <Electronically signed by Pankaj Kimball MD> Date Pankaj Kimball MD Cosigner Signature (If Indicated): Date CC: Ilda Alvarez MD EMERGENCY DEPARTMENT Observed: 03/17/2018 Status: F Source: [place] SUMMARY 9:22 PM [facility] REPOSITORY [facility] Medical Records Department [address] [place] [address] Emergency Department Summary 03/17/182114 MR#: [id number] Acct: [id number] Name: VENECIA KAUR Rep #: [id number] : 1950 68 From: Pankaj Kimball MD [...] since she was dazed based on the [place] CT head rule. Treatment Plan: Appropriate home-going instruction and pain medicine. Disposition: Discharged home with spouse Impression: 1. Closed head injury with transient altered sensorium 2. Compression fracture L1 This note was generated with CallmyName dictation software. It may contain incorrect words, [...] your Primary Care Provider. Call [facility] ([phone]) or report to the closest Emergency Room. Call 911 if necessary. 03/17/182121 <Electronically signed by Pankaj Kimball MD> Date Pankaj Kimball MD Cosigner Signature (If Indicated): Date CC: Ilda Alvarez MD BRAIN/HEAD WITHOUT Observed: 03/17/2018 Status: F Source: [place] CONTRAST 7:56 PM [facility] REPOSITORY [facility] Imaging Services [address] [place] [address] Brain/Head without Contrast MR#: [id number] Acct: [id number] Name: VENECIA KAUR Rep #: [id number] : 1950 F 68 From: Darin Desouza MD PCP: Ilda Alvarez MD Status: REG ER Study: Brain/Head without Contrast Date of Exam: 03/17/18 Exam# [id number] Ordering Dr: Pankaj Kimball MD STUDY: CT [...] CC: Ilda Alvarez MD; Pankaj Kimball MD Folder Inspector: Signed LUMBAR SPINE 2 OR 3 Observed: 03/17/2018 Status: F Source: [place] VIEWS 6:31 PM [facility] REPOSITORY [facility] Imaging Services [address] [place] [address] Lumbar Spine 2 or 3 Views MR#: [id number] Acct: [id number] Name: VENECIA KAUR Rep #: [id number] : 1950 F 68 From: Darin Desouza MD PCP: Ilda Alvarez MD Status: REG ER Study: Lumbar Spine 2 or 3 Views Date of Exam: 03/17/18 Exam# [id number] Ordering Dr: Pankaj Kimball MD STUDY: X-RAY [...] CC: Ilda Alvarez MD; Pankaj Kimball MD Folder Inspector: Signed TRANSVAGINAL Observed: 02/14/2018 Status: F Source: [place] NON- 1:43 PM [facility] REPOSITORY [facility] Imaging Services [address] [place] [address] Transvaginal Non- MR#: [id number] Acct: [id number] Name: VENECIA KAUR Rep #: [id number] : 1950 F 68 From: Gee Chacko MD PCP: Ilda Alvarez MD Status: REG CLI Study: Transvaginal Non- Date of Exam: 02/14/18 Exam# [id number] Ordering Dr: Franc Reddy MD STUDY: ULTRASOUND [...] CC: Ilda Alvarez MD; Franc Reddy MD Folder Inspector: Signed Observed: 02/06/2018 Status: F Source: [place] CULTURE, URINE 1:39 PM [facility] REPOSITORY Order Date: 02/06/18 Order Info: 630-4 - CUUR Urine Culture Below infection level. ORGANISM 1: Mixed Gram Positive Organisms [place] Count <1000 Performed By: #### M100.0650 #### [facility] [place], [address] Observed: 01/16/2018 Status: F Source: [place] CULTURE, URINE 12:25 PM [facility] REPOSITORY Order Date: 01/16/18 Order Info: 630-4 - CUUR Specimen Source: clean catch Urine Culture ORGANISM 1: Enterococcus faecalis [place] Count 50,000-80,000 Enterococcus faecalis: REACTION Ampicillin $ <=2 S Benzylpenicillin NF 2 S Ciprofloxacin $ 1 S Gentamicin SYN-S S Levofloxacin $ 2 S Linezolid $$$$ 2 S Nitrofurantoin $ 32 S Streptomycin $ SYN-S S Tetracycline NF >=16 R Vancomycin $ 1 S (NF) indicates non-formulary drug at [facility]. Approval by Infectious Disease Specialist required before non-formulary drugs may be ordered and/or dispensed. * CLSI guidelines does not recommend testing of cephalosporins. This interpretation is deduced from Beta-lactam/penicillin results. Performed By: #### M100.0650 #### [facility] [address] [facility] [place], [address] SCREENING MAMM (CAD), Observed: 11/06/2017 Status: F Source: [facility] 9:57 AM [facility] REPOSITORY [facility] Imaging Services [address] [place] [address] SCREENING MAMM (CAD), BILAT MR#: [id number] Acct: [id number] Name: VENECIA KAUR Rep #: [id number] : 1950 F 67 From: Charli Shanks MD PCP: Ilda Alvarez MD Status: REG CLI Study: SCREENING MAMM (CAD), BILAT Date of Exam: 11/06/17 Exam# [id number] Ordering Dr: Ilda Alvarez MD MAMMOGRAPHY - [...] Service support , CC: Ilda Alvarez MD Folder Inspector: Signed CARDIOLOGY VISIT Observed: 08/29/2017 Status: F Source: [place] REPORT 11:13 AM [facility] REPOSITORY [facility] [address] [place] [address] OFFICE VISIT Date of Service: 06/22/17 MR#: [id number] Acct: [id number] Name: VENECIA KAUR Rep #: [id number] : 1950 Provider: Martin Perea MD Age/Sex: 67/F Location: [facility] [place] Status: Signed HPI 6 M FU: [...] this. 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) 08/29/17 1113 <Electronically signed by Martin Perea MD> Date Martin Perea MD Cosigner Signature: Date (if applicable) CC: Ilda Alvarez MD ALLERGIES ALLERGIES DATE TYPE / CODE NAME / CODE REACTION SEVERITY SOURCE 07/30/2018 Drug adhesive blisters Unknown [facility] Allergy/[id number](S tape/[id number] [facility]) 4(RXNORM) Hospital Repository 07/23/2018 Miscellaneous tomatoes Hives [place] Sin Allergy/629779005([facility]) Hospital Repository ENCOUNTERS ENCOUNTERS ADMIT/DISCHARGE ACCOUNT ADMITTING ENCOUNTER LOCATION SOURCE NUMBER CLASS 08/07/2018 [id number] Ambulatory Mittie Mittie 9 [facility] ing:LABSPEC Repository 08/07/2018 [id number] Ambulatory Mittie Mittie 5 [facility] ing:LAB.FUTUR Repository E 07/23/2018 [id number] Ambulatory BMSBuilding:B Sin 3 [facility] Repository 07/23/2018 [id number] Ambulatory BMSBuilding:B Mittie 4 [facility] Repository 07/23/2018 [id number] Ambulatory BMS Sin 8 [facility] Repository 07/23/2018/ [id number] Ambulatory Sin Sin 9 6 [facility] ing:CLSP Repository 07/23/2018/ [id number] Ambulatory BMSBuilding:W [facility]ie 9 [facility] Repository 07/19/2018 [id number] Ambulatory Mittie Mittie 6 [facility] ing:LAB Repository 07/19/2018/ [id number] Ambulatory BMSBuilding:B Mittie 9 5 [facility] Repository 07/05/2018 [id number] Ambulatory BMSBuilding:B Sin 1 [facility] Repository 07/04/2018 [id number] Ambulatory BMSBuilding:B Mittie 7 [facility] Repository 07/04/2018 [id number] Ambulatory Mittie Sin 6 [facility] ing[facility]S Repository 07/04/2018 [id number] Ambulatory BMSBuilding:W [facility]ie 9 [facility] Repository 06/19/2018/ [id number] Ambulatory BMSBuilding:B Mittie 8 8 [facility] Repository 06/12/2018 [id number] Ambulatory Mittie Sin 9 [facility] Hospital ing:LABSPEC Repository 05/22/2018 [id number] Ambulatory Mittie Sin 3 [facility] ing:OPBD Repository 04/04/2018 [id number] Ambulatory Sin Mittie 0 [facility] ing:PSN Repository 03/17/2018/ [id number] Emergency Sin Sin 8 2 [facility] ing:ED Repository 02/14/2018 [id number] Ambulatory Sin Sin 3 [facility] ing:OPUS Repository 02/06/2018 [id number] Ambulatory Sin Sin 2 [facility] ing:MTLAB Repository 01/16/2018 [id number] Ambulatory Mittie Sin 2 [facility] ing:LABSPEC Repository 11/06/2017 [id number] Ambulatory Mittie Mittie 1 [facility] ing:OPBI Repository 06/22/2017/ [id number] Ambulatory BMSBuilding:B Mittie 7 9 [facility] Repository PAYERS PAYERS ENCOUNTER GUARANTOR PAYER SUBSCRIBER SOURCE 08/07/2018 VENECIA [id number] Primary VENECIA MEADE Insurance:IMELDA BARRONOB: [facility]ALTH [facility] [id number] Hospital [address]Hqs: [facility] Number: Repository [phone] () [id number] e Date:[id number] [address]PB: 08/07/2018 Secondary NOT GIVENUNK Mittie Insurance:SELF PAY [facility] Number: Effective Repository Date:2018-08-07 08/07/2018 VENECIA [id number] Primary VENECIA Danelle Vogt [place] Insurance:IMELDA LINCOLNDOB: [facility] [id number] [address]Ssf: (330) [facility] Number: Repository [phone] () [id number] e Date:[id number] [address]NX: 08/07/2018 Secondary NOT GIVENUNK Mittie Insurance:SELF PAY [facility] Number: Effective Repository Date:2018-08-07 07/23/2018 TREVER D Primary VENECIA Vogt [id number] Insurance:IMELDA LINCOLNDOB: [facility] [id number] Number: Repository [id number]: [phone] [id number] [phone] () e Date:[id number] [address]ZV: 07/23/2018 Secondary NOT GIVENUNK Mittie Insurance:SELF PAY [facility] Number: Effective Repository Date:2018-07-23 07/23/2018 TREVER D Primary VENECIA Vogt [id number] Insurance:IMELDA LINCOLNDOB: [facility] [id number] Health [facility] Centericy Number: Repository [id number]: [phone]) [id number] [phone] () e Date:[id number] [address]LX: 07/23/2018 Secondary NOT GIVENUNK Sin Insurance:SELF PAY [facility] Number: Effective Repository Date:2018-07-23 07/23/2018 TREVER D Primary VENECIA Danelle RandhawaMittie [id number] Insurance:IMELDA LINCOLNDOB: [facility] [id number] HospitalOPolburgess health center Number: Repository [id number]: [phone]) [id number] [phone] () e Date:8121-29-94[address] [address]HN: 07/23/2018 Secondary NOT GIVENUNK Mittie Insurance:SELF PAY [facility] Number: Effective Repository Date:2018-07-23 07/23/2018 TREVER D Primary VENECIA Danelle Sin [id number] Insurance:IMELDA LINCOLNDOB: [facility] [id number] Hope Hospital Number: Repository [id number]: [phone] [id number] [phone] () e Date:9912-59-72[address] [address]PH: 07/23/2018 Secondary NOT GIVENUNK Sin Insurance:SELF PAY [facility] Number: Effective Repository Date:2018-07-05 07/23/2018 TREVER D Primary VENECIA Vogt [id number] Insurance:IMELDA LINCOLNDOB: [facility] [id number] [facility] Hospital Number: Repository [id number]: ([phone] [id number] [phone] () e Date:7393-02-18BI [address] [address]OR: 07/23/2018 Secondary NOT GIVENUNK Mittie Insurance:SELF PAY [facility] Number: Effective Repository Date:2018-07-23 07/19/2018 TREVER D Primary VENECIA Danelle Vogt [id number] Insurance:IMELDA LINCOLNDOB: [facility] [id number] HospitalOPolburgess [facility] center Number: Repository [id number]: ([phone] [id number] [phone] (HP) e Date:2569-07-48YS [address] [address]JN: 07/19/2018 Secondary NOT GIVENUNK Sin Insurance:SELF PAY [facility] Number: Effective Repository Date:2018-07-19 07/19/2018 TREVER D Primary VENECIA Vogt [id number] Insurance:IMELDA LINCOLNDOB: [facility] [id number] Hope Hospital Number: Repository [address]Hpg: 330 [id number] [phone] () e Date:1228-77-92BC [address] [address]YU: 07/19/2018 Secondary NOT GIVENUNK Mittie Insurance:SELF PAY [facility] Number: Effective Repository Date:2018-07-19 07/05/2018 TREVER D Primary VENECIA Mcclendon Mittie [id number] Insurance:IMELDA LINCOLNDOB: [facility] [id number] Hope Hospital Number: Repository [address]Lyq: 330 [id number] [phone] () e Date:5259-76-94JW [facility] [address] [address]EP: 07/05/2018 Secondary NOT GIVENUNK Sin Insurance:SELF PAY [facility] Number: Effective Repository Date:2018-07-05 07/04/2018 TREVER D Primary VENECIA Vogt [id number] Insurance:IMELDA LINCOLNDOB: [facility] [id number] Hope Hospital Number: Repository [address]Llx: 330 [id number] [phone] () e Date:4004-66-28FJ [address] [address]EU: 07/04/2018 Secondary NOT GIVENUNK Sin Insurance:SELF PAY [facility] Number: Effective Repository Date:2018-07-04 07/04/2018 TREVER D Primary VENECIA Danelle Sin [id number] Insurance:IMELDA LINCOLNDOB: [facility] [id number] HMOPolicy Number: Repository [id number]: ([phone] [id number] [phone] () e Date:8299-18-23PP [address] [address]LB: 07/04/2018 Secondary NOT GIVENUNK Mittie Insurance:SELF PAY [facility] Number: Effective Repository Date:2018-06-19 07/04/2018 TREVER D Primary VENECIA Vogt [id number] Insurance:IMELDA LINCOLNDOB: [facility] [id number] Health [facility] Centericy Number: Repository [id number]: [phone] [id number] [phone] () e Date:5009-52-58VR [address] [address]UB: 07/04/2018 Secondary NOT GIVENUNK Mittie Insurance:SELF PAY [facility] Number: Effective Repository Date:2018-07-04 06/19/2018 TREVER D Primary VENECIA Danelle Sin [id number] Insurance:IMELDA LINCOLNDOB: [facility] [id number] Hope Hospital Number: Repository [id number]: [phone] [id number] [phone] () e Date:3956-12-28TU [address] [address]JK: 06/19/2018 Secondary NOT GIVENUNK Sin Insurance:SELF PAY [facility] Number: Effective Repository Date:2018-06-19 06/12/2018 TREVER D Primary VENECIA Mcclendon Sin [id number] Insurance:IMELDA LINCOLNDOB: [facility] [id number] HospitalOPolburgess health center Number: Repository [id number]: (330) [id number] [phone] () e Date:7760-04-31QZ [address] [address]SK: 06/12/2018 Secondary NOT GIVENUNK Sin Insurance:SELF PAY [facility] Number: Effective Repository Date:2018-06-12 05/22/2018 TREVER D Primary VENECIA Vogt [id number] Insurance:IMELDA LINCOLNDOB: [facility] [id number] Hope Hospital Number: Repository [id number]: 330 [id number] [phone] () e Date:2118-41-79TX [address] [address]QS: 05/22/2018 Secondary NOT GIVENUNK Sin Insurance:SELF PAY [facility] Number: Effective Repository Date:2018-05-08 04/04/2018 TREVER D Primary VENECIA Vogt [id number] Insurance:IMELDA LINCOLNDOB: [facility] [id number] Hope Hospital Number: Repository [address]Edy: 330 [id number] [phone] () e Date:6041-98-92UQ [facility] [address] [address]ZZ: 04/04/2018 Secondary NOT GIVENUNK Sin Insurance:SELF PAY [facility] Number: Effective Repository Date:2017-12-21 03/17/2018 Trever D Primary VENECIA Vogt [id number] Insurance:IMELDA LINCOLNDOB: [facility] [id number] Health, [facility] Number: Repository [id number]: 330 [id number] [phone] () e Date:1257-94-38QC [address] [address]AQ: 03/17/2018 Secondary NOT GIVENUNK Mittie Insurance:SELF PAY [facility] Number: Effective Repository Date:2018-03-17 02/14/2018 Trever D Primary VENECIA Danelle Vogt [id number] Insurance:IMELDA LINCOLNDOB: [facility] [id number] HospitalOPolburgess health center Number: Repository [id number]: (330 [id number] [phone] (HP) e Date:6910-19-98CY [address] [address]DV: 02/14/2018 Secondary NOT GIVENUNK Mittie Insurance:SELF PAY [facility] Number: Effective Repository Date:2018-02-13 02/06/2018 Trever D Primary VENECIA K Mittie [id number] Insurance:IMELDA LINCOLNDOB: [facility] [id number] Health Rexicy Number: Repository [id number]: (330) [id number] [phone] () e Date:6595-14-93GR [address] [address]ZH: 02/06/2018 Secondary NOT GIVENUNK Sin Insurance:SELF PAY [facility] Number: Effective Repository Date:2018-02-06 01/16/2018 Trever D Primary VENECIA K Mittie [id number] Insurance:IMELDA LINCOLNDOB: [facility] [id number] Health, [facility] Number: Repository [id number]: [phone] [id number] [phone] () e Date:2039-52-43GD [address] [address]XW: 01/16/2018 Secondary NOT GIVENUNK Mittie Insurance:SELF PAY [facility] Number: Effective Repository Date:2018-01-16 11/06/2017 Trever D Primary VENECIA K Mittie [id number] Insurance:IMELDA LINCOLNDOB: [facility] [id number] Health, [facility] Number: Repository [id number]: [id number] [phone] e Date:8315-71-74DN () [address] [address]VR: 11/06/2017 Secondary NOT GIVENUNK Sin Insurance:SELF PAY [facility] Number: Effective Repository Date:2017-10-11 06/22/2017 Trever [id number] Insurance:IMELDA LINCOLNDOB: [facility] [id number] Health, [facility] Number: Repository [id number]: 330 [id number] [phone] () e Date:3529-27-89UZ [address] [address]WY: 06/22/2017 Secondary NOT GIVENUNK Sin Insurance:SELF PAY [facility] Number: Effective Repository Date:2017-06-17
== END ==
PROVIDERS: Family Provider Family Medicine; PCP Family Medicine; Visit Provider Family Medicine
DX: N39.0 Urinary tract infection, site not specified (principal); E78.5 Hyperlipidemia, unspecified; R53.81 Other malaise; R53.83 Other fatigue
CPT/HCPCS: 87077; 87086; 87088; 87186

== ENCOUNTER → 2018-08-21 08:23 | Outpatient (CLI) | payer MEDICARE, SELFPAY ==
[2018-07-20 12:23] VITALS: BMI 30.4
[2018-08-21 10:10] LABS: Absolute Lymphocyte Count 1.53 X10^3/ul (0.83-4.51); Basophil# 0.03 X10^3/uL; Basophil% 0.7 % (0-1); Eosinophil# 0.13 X10^3/uL; Hematocrit 42.9 % (37-47); Hemoglobin 13.5 g/dl (12.0-15.0); Lymphocyte # 1.53 X10^3/ul (4.0); Lymphocyte % 35.4 % (19-41); Mean Corp Hgb Conc 31.5 g/gl (32-36); Mean Corpuscular Hgb 29.8 pg (27.0-32.0); Mean Corpuscular Volume 94.7 fL (81-99); Mean Platelet Vol. 10.8 fl (6.2-12.0); Monocyte# 0.63 X10^3/uL; Monocyte% 14.6 % (0-10); Neutrophil % 46.3 % (47-70); Platelet Count 179 K/mm3 (150-450); Red Blood Count 4.53 M/mm3 (4.2-5.4); White Blood Count 4.3 K/mm3 (4.4-11.0)
[2018-08-21 10:13] LABS: POSITIVE COUNT NO; POSITIVE DIFFERENTIAL NO; POSITIVE MORPHOLOGY NO
[2018-08-21 10:51] LABS: Cholesterol 231 mg/dL (200); High Density Lipoprotein 52 mg/dL; Thyroid Stim Hormone (TSH) 3.61 uIU/mL (0.358-3.74); Triglycerides 166 mg/dL; Very Low Density Lipoprotein 33 mg/dL (5-40)
== END ==
PROVIDERS: Family Provider Family Medicine; PCP Family Medicine; Referring Provider Family Medicine; Visit Provider Family Medicine
DX: N39.0 Urinary tract infection, site not specified (principal); E78.5 Hyperlipidemia, unspecified; R53.81 Other malaise; R53.83 Other fatigue
CPT/HCPCS: 36415; 80061; 84443; 85025

== ENCOUNTER → 2018-08-27 12:43 | Outpatient (CLI) | payer MEDICARE, SELFPAY ==
[2018-07-20 12:23] VITALS: BMI 30.4
--- NOTE | 2018-08-27 12:47 | US_ITS ---
STUDY: RENAL ULTRASOUND - COMPLETE REASON FOR EXAM: Female, 68 years old. Recurrent UTI TECHNIQUE: Ultrasound evaluation of the kidneys was performed with real-time and static jones-scale imaging. COMPARISON: None available. FINDINGS: RIGHT KIDNEY: Normal location of the right kidney, which is normal in size. The right kidney measures 8.3 cm. There is a normal cortex of the right kidney. There is no right renal mass or cyst. There are no right renal calculi. There is no right hydronephrosis. DISTAL RIGHT URETER: There is non-visualization of the distal right ureter. There is no demonstrated right ureterovesical junction calculus. There is a visualized right ureteral jet. LEFT KIDNEY: Normal location of the left kidney, which is normal in size. The left kidney measures 7.9 cm. There is a normal cortex of the left kidney. There is no left renal mass or cyst. There are no left renal calculi. There is no left hydronephrosis. DISTAL LEFT URETER: There is non-visualization of the distal left ureter. There is no demonstrated left ureterovesical junction calculus. There is a visualized left ureteral jet. BLADDER: The urinary bladder is partially distended and appears unremarkable. US/Kidney and Bladder IMPRESSION: Normal ultrasound of the kidneys and urinary bladder. Electronically Signed: Zhang Acuna, at 14:51 EST Tel , Service support ,
== END ==
PROVIDERS: Family Provider Family Medicine; PCP Family Medicine; Referring Provider Urology; Visit Provider Urology
DX: N39.0 Urinary tract infection, site not specified (principal)
CPT/HCPCS: 76770

== ENCOUNTER → 2018-11-07 12:50 | Outpatient (CLI) | payer MEDICARE, SELFPAY ==
[2018-07-20 12:23] VITALS: BMI 30.4
--- NOTE | 2018-11-07 12:52 | BI_ITS ---
MAMMOGRAPHY - BILATERAL SCREENING 3-D TOMOSYNTHESIS REASON FOR EXAM: Female, 68 years old. Bilateral Screening 3-D tomosynthesis PERTINENT HISTORY: No significant family history. TECHNIQUE: 2-D mammograms and 3-D Tomosynthesis of the breast (s) were performed. CAD was performed. COMPARISON: November 06, 2017 FINDINGS: The breast composition is heterogeneously dense that can obscure small breast masses. Scattered benign calcifications are seen. No dense spiculated masses or suspicious microcalcifications are identified. No architectural distortion is identified. There is no skin thickening or retraction. There has been no significant change since the prior study. BI/SCREENING MAMM (CAD), BILAT IMPRESSION: No mammographic signs of malignancy. Routine yearly mammograms recommended. ASSESSMENT CATEGORY: BIRADS Category 1: Negative. A letter regarding these results will be sent to the patient by the facility within 30 days. FOLLOW UP RECOMMENDATION: Yearly follow up mammogram recommended. (A) Approximately 10% of breast cancers are not detected by mammography. A normal mammogram should not delay biopsy of a clinically suspicious abnormality. Electronically Signed: Charli Shanks MD at 15:17 EDT , Service support ,
== END ==
PROVIDERS: Family Provider Family Medicine; PCP Family Medicine; Referring Provider Family Medicine; Visit Provider Family Medicine
DX: Z12.31 Encounter for screening mammogram for malignant neoplasm of breast (principal)
CPT/HCPCS: 77063; 77067

== ENCOUNTER → 2018-12-04 10:15 | Outpatient (CLI) | payer MEDICARE, SELFPAY ==
[2018-07-20 12:23] VITALS: BMI 30.4
== END ==
PROVIDERS: Family Provider Family Medicine; PCP Family Medicine; Referring Provider Family Medicine; Visit Provider Family Medicine
DX: R30.0 Dysuria (principal)
CPT/HCPCS: 87077; 87086; 87088; 87186

== ENCOUNTER → 2019-12-10 14:43 | Outpatient (CLI) | payer MEDICARE, SELFPAY ==
[2019-06-18 08:43] VITALS: BMI 30.2
--- NOTE | 2019-12-10 14:46 | BI_ITS ---
MAMMOGRAPHY - BILATERAL SCREENING REASON FOR EXAM: Female, 69 years old. Routine annual screening examination. PERTINENT HISTORY: History of remote left excisional breast biopsy. Aunt with breast cancer. TECHNIQUE: Digital bilateral breast laurence (3D mammographic acquisition) in the CC and MLO projections. 2-D mediolateral oblique (MLO) and craniocaudad (CC) views of both breasts were obtained. CAD: Full Field Digital Mammography with Computer Added Detection was performed. COMPARISON: Comparison is made with prior examination dated November 07, 2018 and November 06, 2017. FINDINGS: Breast Composition: The breasts are heterogeneously dense, which may obscure small masses. There are no dominant masses or suspicious calcifications. Stable small benign-appearing bilateral axillary lymph nodes. No other significant abnormalities are identified. There has been no significant change since the prior study. BI/SCREEN MAMM (CAD) W/LAURENCE BILAT IMPRESSION: Stable bilateral screening mammogram. Yearly follow-up mammogram recommended. (A) ASSESSMENT CATEGORY: BIRADS Category 2: Benign. A letter regarding these results will be sent to the patient by the facility within 30 days. Approximately 10% of breast cancers are not detected by mammography. A normal mammogram should not delay biopsy of a clinically suspicious abnormality. [id number] Electronically Signed: Mitchell Samuel, at 15:50 EDT , Service support ,
== END ==
PROVIDERS: PCP Family Medicine; Referring Provider Family Medicine; Visit Provider Family Medicine
DX: Z12.31 Encounter for screening mammogram for malignant neoplasm of breast (principal)
CPT/HCPCS: 77063; 77067

== ENCOUNTER → 2020-01-21 11:01 | Outpatient (CLI) | payer MEDICARE, SELFPAY ==
[2019-06-18 08:43] VITALS: BMI 30.2
[2020-01-21 12:34] LABS: Color, Urine Yellow (Yellow); Glucose, Dipstick Normal (Normal); Ketone-Dipstick Negative (Negative); Leukocyte Esterase-Dipstick 500 /ul (Negative); Nitrite-Dipstick Positive (Negative); Occult Blood-Urine 25 /ul (Negative); Protein-Dipstick 30 mg/dl (Negative); Urine Bilirubin Dipstick Negative (Negative); Urine Clarity Sl. Cloudy (Clear); Urine Urobilinogen Normal (Normal); Urine pH 6.5 (5.0 - 8.0)
== END ==
PROVIDERS: PCP Family Medicine; Referring Provider Urology; Visit Provider Urology
DX: R30.0 Dysuria (principal)
CPT/HCPCS: 81002; 87077; 87086; 87088; 87186

== ENCOUNTER 2020-09-22 13:52 | Outpatient (RCR) | payer MEDICARE, SELFPAY ==
[2019-06-18 08:43] VITALS: BMI 30.2
[2020-09-22] MEDS: COVID-19 VACC, MRNA(PFIZER)/PF 30 MCG/0.3 ML SYRINGE IM (11:44)
[2020-10-13] MEDS: COVID-19 VACC, MRNA(PFIZER)/PF 30 MCG/0.3 ML SYRINGE IM (11:30)
== END 2020-12-22 23:59 ==
LOC: IMMUN 13:52
PROVIDERS: PCP Family Medicine; Referring Provider Family Medicine; Visit Provider Family Medicine
DX: Z23 Encounter for immunization (principal)
CPT/HCPCS: 0001A; 0002A; 91300

== ENCOUNTER → 2020-11-19 10:44 | Outpatient (CLI) | payer MEDICARE, SELFPAY ==
[2020-11-03 14:33] VITALS: BMI 29.5
--- NOTE | 2020-11-19 10:46 | ECHOD_ITS ---
Version 2 Reason For Study: VALVE REPLACEMENT EVAL Procedure This was a 2D Doppler, Color Flow transthoracic echocardiogram. Exam performed in department. Left Ventricle Normal LV size. Left ventricular systolic function is normal. The estimated ejection fraction is 60 %. Stage 1 diastolic dysfunction. No regional wall motion abnormalities noted. Right Ventricle Normal RV size. Normal systolic function. Atria Normal left atrium. Normal right atrium. Mitral Valve Normal mitral valve. Tricuspid Valve Normal tricuspid valve. Mild (1+) tricuspid valve insufficiency. Pulmonary artery systolic pressure is 28 mmHg. Aortic Valve Mean aortic valve gradient 6 mmHg. Bioprosthetic aortic valve. Pulmonic Valve The pulmonic valve is not well visualized. Great Vessels Normal aortic root. The pulmonary artery is normal size. Normal inferior vena cava. Pericardium/Pleural No pericardial effusion. MMode/2D Measurements & Calculations LVIDd: 3.8 cm IVSd: 0.93 cm LVOT diam: 2.0 cm LVIDs: 2.6 cm LVPWd: 0.79 cm LVOT area: 3.1 cm2 RVDd: 3.1 cm FS: 31.1 % Ao root diam: 2.3 cm LAV(MOD-bp): 35.7 ml LA A4 area: 12.7 cm2 LAV(MOD-bp) Indexed: 22.2 ml/m2 LAV(MOD-sp2): 39.9 ml LAV(MOD-sp4): 29.2 ml LA dimension(2D): 2.9 cm Time Measurements MV dec time: 0.20 sec Doppler Measurements & Calculations MV E max noe: 80.4 cm/sec Lat Peak E' Noe: 9.5 cm/sec Med Peak E' Noe: 7.0 cm/sec MV A max noe: 90.2 cm/sec E/E' lat: 8.5 E/E' med: 11.5 MV E/A: 0.89 Ao V2 max: 172.0 cm/sec LV V1 max: 81.7 cm/sec SV(LVOT): 55.2 ml Ao max P.8 mmHg LV V1 max P.7 mmHg Ao V2 mean: 125.4 cm/sec LV V1 mean P.6 mmHg Ao mean P.8 mmHg LV V1 mean: 61.7 cm/sec Ao V2 VTI: 35.1 cm LV V1 VTI: 17.8 cm KRISHAN(I,D): 1.6 cm2 KRISHAN(V,D): 1.5 cm2 PA V2 max: 53.6 cm/sec TR max noe: 247.7 cm/sec TR max P.6 mmHg ECHO/Echo Complete Interpretation Summary Normal LV size. Left ventricular systolic function is normal. The estimated ejection fraction is 60 %. Stage 1 diastolic dysfunction. Mean aortic valve gradient 6 mmHg. Bioprosthetic aortic valve. Ordering Physician: Marquita Chandra Referring Physician: Ilda Mendieta Performed By: Caity Meadows RDCS, RVT
== END ==
PROVIDERS: PCP Family Medicine; Visit Provider Physician Assistant Medical
DX: I35.0 Nonrheumatic aortic (valve) stenosis (principal)
CPT/HCPCS: 93306

== ENCOUNTER → 2020-12-11 10:20 | Outpatient (CLI) | payer MEDICARE, SELFPAY ==
[2019-06-18 08:43] VITALS: BMI 30.2
[2020-11-03 14:33] VITALS: BMI 29.5
--- NOTE | 2020-12-11 10:22 | BI_ITS ---
MAMMOGRAPHY - BILATERAL SCREENING REASON FOR EXAM: Female, 70 years old. Routine annual screening examination. PERTINENT HISTORY: Aunt with breast cancer. TECHNIQUE: Digital bilateral breast laurence (3D mammographic acquisition) in the CC and MLO projections. 2-D mediolateral oblique (MLO) and craniocaudad (CC) views of both breasts were obtained. CAD: Full Field Digital Mammography with Computer Added Detection was performed. COMPARISON: Comparison is made with prior study dated 12/10/2019 and 11/07/2018. FINDINGS: Breast Composition: The breasts are extremely dense, which lowers the sensitivity of mammography. There are no dominant masses or suspicious calcifications. Stable small benign-appearing bilateral axillary lymph nodes. No other significant abnormalities are identified. There has been no significant change since the prior study. BI/SCRN MAMM (CAD)W/LAURENCE BILAT IMPRESSION: Stable bilateral screening mammogram. Yearly follow-up mammogram recommended. (A) ASSESSMENT CATEGORY: BIRADS Category 1: Negative. A letter regarding these results will be sent to the patient by the facility within 30 days. Approximately 10% of breast cancers are not detected by mammography. A normal mammogram should not delay biopsy of a clinically suspicious abnormality. [id number] Electronically Signed: Mitchell Samuel MD at 13:02 EDT , Service support ,
== END ==
PROVIDERS: PCP Family Medicine; Referring Provider Family Medicine; Visit Provider Family Medicine
DX: Z12.31 Encounter for screening mammogram for malignant neoplasm of breast (principal)
CPT/HCPCS: 77063; 77067

== ENCOUNTER → 2021-04-09 16:56 | Outpatient (CLI) | payer MEDICARE, SELFPAY | PROVIDERS: PCP Family Medicine; Referring Provider Family Medicine; Visit Provider Family Medicine | DX: R68.89 Other general symptoms and signs (principal) | CPT/HCPCS: 87635; U0005; U0003 ==

== ENCOUNTER 2021-09-21 13:00 | Outpatient (RCR) | payer MEDICARE, SELFPAY ==
--- NOTE | 2021-09-14 12:22 | HP.PTEVAL_ITS ---
Patient's Visit Information VEENCIA KAUR is a 71 year old F referred to Physical Therapy by Dr. Ilda Alvarez MD with a diagnosis of TRAPEZIUS STRAIN ,RIGHT. Date of Evaluation: 09/14/21 Physical Therapist: Joel Jones, PT, Cert MDT, OCS - Visit Plan Frequency: 2x /Week Duration: 6 Weeks Plan: PT INTERETIONS MANUAL THERAPY STM UT/LEVATOR/OA ,CERVICAL TRACTION,US/MHP ,ICTX 14-18# [id number] ,CERVICAL ROM, AND POSTURAL EX'S - Subjective This 71 y/o female presents to physical therapy with cervical pain. Patient has right UT pain for couple years. Seen DR unable to move neck . Patient pain is getting better but has difficulty to move rotate for example to turn to drive car. Patient MD recommended PT . Aggravating factors turn neck, looking down ,side to side, lifting and cold. Patient symptoms affects sleeping . Alleviating factors teylonal. Denies RAMIREZ/tinnitus/nausea. Denies paresthesia/tingling. Patient reports no trauma. Patient has not had any trauma. Patient symptoms affects ADLS' and housework. SOCIAL: . VOCATION: retired - Pain Bilateral Neck Pain Intensity (Out of 10): 8 - Objective POSTURE: mild forward posture ,rounded shoulders. PALAPTION: UT/levator/OA. NEURO: denies paresthesia/tingling ,C5-6-7 2/3. AROM BUE: WFL. MMT: grossly 4/5 ,shoulders 4-/5. CERVICAL ROM: flexion mod loss ,lateral flexion severe loss, rotation mod/severe loss ,extension mod /severe loss - Special Tests C/S Radiculapathy - Left Upper limb tension test: Negative C/S Radiculapathy - Right Upper limb tension test: Negative C/S Radiculapathy - Left Spurlings: Positive C/S Radiculapathy - Right Spurlings: Positive C/S Radiculapathy - Left Cervical distraction: Negative C/S Radiculapathy - Right Cervical distraction: Negative C/S Radiculapathy - Left Relief test: Negative C/S Radiculapathy - Right Relief test: Negative C/S Radiculapathy - Valsalva: Negative Sharp Trisha: Negative Vertebral Artery Test: Negative Alar Ligament Test: Negative - Balance/Special Test Scores Oswestry Neck Score: 21 - Goals Goal 1:: Patient to be I with HEP for cervical spine Goal Time Frame: 4-6 Weeks Goal 2:: Patient to improve posture for ADL's 80% Goal Time Frame: 4-6 Weeks Goal 3:: Patient to improve cervical ROM min/mod limited to improve driving Goal Time Frame: 4-6 Weeks Goal 4:: Patient to demonstrate 50% improvement with decrease pain and improve function and ADL's Goal Time Frame: 4-6 Weeks Goal 5:: Patient to improve neck oswestry score by 5 points to improve QOL. Goal Time Frame: 4-6 Weeks - Rehabilitation Potential Physical Therapy Diagnosis: This patient has cervical pain with tightness UT /levator/ OA ,with pain during ROM and positioning thus impairs ADLS and housework task thus benefit from skilled Rehabilitation Potential: Good - Anticipated Interventions Patient/Client Instruction: Educate patient on: Condition, Plan of Care For the Purpose of:: To decrease pain, To increase ROM, To improve muscle performance and motor function, To improve ability to perform ADL's, To increase tolerance to activity/condition/position, To improve performance and independence with ADL's, To improve ability of physical actions for home/community/work/leisure, To improve health of tissue, To decrease soft tissue restriction, To increase flexibility/ROM Therapeutic Exercise to Include: Strength training, Postural training, Flexibilty training, Active ROM, Scapular Strength/Stabilization For the Purpose of:: To decrease pain, To increase ROM, To improve muscle performance and motor function, To increase tolerance to activity/conditio n/position, To improve ability of physical actions for home/community/work/leisure, To improve health of tissue, To decrease soft tissue restriction, To increase flexibility/ROM Manual Therapy Techniques to Include: Mobilization, Soft tissue mobilization Comment: CERVICAL TRACTION For the Purpose of:: To decrease pain, To increase ROM, To increase oxygenation perfusion, To improve health of tissue, To decrease soft tissue restriction, To increase flexibility/ROM TENS: Yes IF ES: Yes Cryotherapy (ice pack, ice massage): Yes Thermo therapy (hot pack): Yes Ultrasound (thermal/non thermal): Yes Intermittent cervical traction: Yes For the Purpose of:: To decrease pain, To increase ROM, To improve nutrient delivery to tissue, To increase oxygenation perfusion, To improve health of tissue, To decrease soft tissue restriction Thank you for the opportunity to evaluate your patient. For Medicare and Medicare HMO plans, please review the plan of care and approve it. It will need to be FAXED BACK to us at [phone] for Medicare purposes. For Medicare only, by signing this I certify the plan of care. Please let me know if there are questions or concerns regarding this plan of care. Physician Signature: Date:
== END 2021-09-21 19:00 | disposition home or self-care (01) ==
LOC: PT 13:00
PROVIDERS: PCP Family Medicine; Referring Provider Family Medicine; Visit Provider Family Medicine
DX: S29.012D Strain of muscle and tendon of back wall of thorax, subsequent encounter (principal); X58.XXXD Exposure to other specified factors, subsequent encounter
CPT/HCPCS: 97035; 97140; 97162

== ENCOUNTER → 2021-12-21 | Outpatient (CLI) | payer MEDICARE, SELFPAY ==
--- NOTE | 2021-12-21 14:11 | BI_ITS ---
MAMMOGRAPHY - BILATERAL SCREENING REASON FOR EXAM: Female, 71 years old. Routine annual screening examination. PERTINENT HISTORY: Aunt with breast cancer. Remote left excisional breast biopsy. TECHNIQUE: Digital bilateral breast laurence (3D mammographic acquisition) in the CC and MLO projections. 2-D mediolateral oblique (MLO) and craniocaudad (CC) views of both breasts were obtained. CAD: Full Field Digital Mammography with Computer Added Detection was performed. COMPARISON: Comparison is made with prior study of 12/03/2020 and 12/10/2019. FINDINGS: Breast Composition: The breasts are extremely dense, which lowers the sensitivity of mammography. There are no dominant masses or suspicious calcifications. Stable small benign-appearing bilateral axillary lymph nodes. No other significant abnormalities are identified. There has been no significant change since the prior study. BI/SCRN MAMM (CAD)W/LAURENCE BILAT IMPRESSION: Stable bilateral screening mammogram. Yearly follow-up mammogram recommended. (A) ASSESSMENT CATEGORY: BIRADS Category 2: Benign. A letter regarding these results will be sent to the patient by the facility within 30 days. Approximately 10% of breast cancers are not detected by mammography. A normal mammogram should not delay biopsy of a clinically suspicious abnormality. [id number] Electronically Signed: Mitchell Samuel MD at 15:13 EDT ,
== END | disposition home or self-care (01) ==
LOC: OPBI 14:09
PROVIDERS: PCP Family Medicine; Referring Provider Family Medicine; Visit Provider Family Medicine
DX: Z12.31 Encounter for screening mammogram for malignant neoplasm of breast (principal)
CPT/HCPCS: 77063; 77067

== ENCOUNTER → 2022-10-18 | Outpatient (CLI) | payer MEDICARE, SELFPAY ==
[2022-10-18 18:45] LABS: Hemoglobin A1c 5.1 % (3.8-5.6)
[2022-10-18 18:49] LABS: Anion Gap 7 (5-15); BUN 29 mg/dL (7-18); BUN/Creat Ratio 31.8 RATIO (10-20); Chloride 105 mmol/L (98-107); Cholesterol 231 mg/dL (200); Creatinine, Serum 0.91 mg/dL (0.55-1.02); EST Glomerular Filtration Rate 64 mL/min (>60); Est Glom Filt Rate - Afr Amer 77 mL/min (>60); Glucose 86 mg/dL (74-106); High Density Lipoprotein 52 mg/dL; Sodium Level 139 mmol/L (136-145); Triglycerides 167 mg/dL; Very Low Density Lipoprotein 33 mg/dL (5-40)
== END | disposition home or self-care (01) ==
LOC: MFPLAB 16:05
PROVIDERS: PCP Family Medicine; Referring Provider Family Medicine; Visit Provider Family Medicine
DX: Z00.00 Encounter for general adult medical examination without abnormal findings (principal); E78.5 Hyperlipidemia, unspecified; L85.3 Xerosis cutis
CPT/HCPCS: 36415; 80048; 80061; 83036; 84443

== ENCOUNTER → 2022-10-25 | Outpatient (CLI) | payer MEDICARE, SELFPAY ==
--- NOTE | 2022-10-25 14:55 | CDU_ITS ---
Reason For Study: amaurosis fugax Rt. Velocities/BP Lt. Velocities/BP Prox CCA 72.1/20.1 cm/sec. Prox CCA 87.6/18.8 cm/sec. Mid CCA 63.6/19.2 cm/sec. Mid CCA 85.1/26.2 cm/sec. Dist CCA 67.4/22.0 cm/sec. Dist CCA 74.0/21.2 cm/sec. Prox ICA 79.6/24.8 cm/sec. Prox ICA 60.2/18.9 cm/sec. Mid ICA 94.1/31.2 cm/sec. Mid ICA 68.2/20.2 cm/sec. Dist ICA 112.1/37.2 cm/sec. Dist ICA 83.2/32.1 cm/sec. Rt. ICA/CCA = 1.8. Lt. ICA/CCA = 1.0. Prox ECA 69.2/16.3 cm/sec. Prox ECA 65.4/10.2 cm/sec. Rt. Vert. 39.7/9.0 cm/sec. Lt. Vert. 47.6/14.6 cm/sec. Right Extracranial There is intimal thickening but no significant atherosclerotic plaque noted in the right common carotid artery. There is intimal thickening but no significant atherosclerotic plaque noted in the right internal carotid artery. The right internal carotid artery is very tortuous. There is intimal thickening but no significant atherosclerotic plaque noted in the right external carotid artery. Antegrade flow is noted in the right vertebral artery. Left Extracranial There is intimal thickening but no significant atherosclerotic plaque noted in the left common carotid artery. There is intimal thickening but no significant atherosclerotic plaque noted in the left internal carotid artery. The left internal carotid artery is very tortuous. There is intimal thickening but no significant atherosclerotic plaque noted in the left external carotid artery. Antegrade flow is noted in the left vertebral artery. Procedure Carotid Duplex [id number]. This is a Carotid Duplex examination using B-mode, color flow and specral Doppler. The exam was diagnostic. Exam performed in department. VL/Carotid Duplex Ultrasound Interpretation Summary Normal right extracranial internal carotid. Normal left extracranial internal carotid. Patent and antegrade vertebrals bilaterally. Ordering Physician: Brendan Rodriguez Performed By: Marquise Dawson RVT
== END | disposition home or self-care (01) ==
LOC: CVS 14:52
PROVIDERS: PCP Family Medicine; Referring Provider Ophthalmology; Visit Provider Ophthalmology
DX: G45.3 Amaurosis fugax (principal)
CPT/HCPCS: 93880

== ENCOUNTER → 2022-12-26 | Outpatient (CLI) | payer MEDICARE, SELFPAY ==
--- NOTE | 2022-12-26 15:36 | BI_ITS ---
MAMMOGRAPHY - BILATERAL SCREENING REASON FOR EXAM: Female, 72 years old. Routine annual screening examination. PERTINENT HISTORY: Aunt with breast cancer. Remote left excisional breast biopsy. TECHNIQUE: Digital bilateral breast laurence (3D mammographic acquisition) in the CC and MLO projections. 2-D mediolateral oblique (MLO) and craniocaudad (CC) views of both breasts were obtained. CAD: Full Field Digital Mammography with Computer Added Detection was performed. COMPARISON: Comparison is made with prior study dated December 21, 2021 and December 11, 2020. FINDINGS: Breast Composition: The breasts are extremely dense, which lowers the sensitivity of mammography. There are no dominant masses or suspicious calcifications. No other significant abnormalities are identified. There has been no significant change since the prior study. BI/SCRN MAMM (CAD)W/LAURENCE BILAT IMPRESSION: Stable bilateral screening mammogram. Yearly follow-up mammogram recommended. (A) ASSESSMENT CATEGORY: BIRADS Category 1: Negative. A letter regarding these results will be sent to the patient by the facility within 30 days. Approximately 10% of breast cancers are not detected by mammography. A normal mammogram should not delay biopsy of a clinically suspicious abnormality. [id number] Electronically Signed: Mitchell Samuel MD at 8:16 EDT ,
== END | disposition home or self-care (01) ==
LOC: OPBI 15:34
PROVIDERS: PCP Family Medicine; Referring Provider Family Medicine; Visit Provider Family Medicine
DX: Z12.31 Encounter for screening mammogram for malignant neoplasm of breast (principal)
CPT/HCPCS: 77063; 77067

== ENCOUNTER → 2024-01-10 | Outpatient (CLI) | payer MEDICARE, SELFPAY ==
--- NOTE | 2024-01-10 11:54 | BI_ITS ---
MAMMOGRAPHY - BILATERAL SCREENING REASON FOR EXAM: Female, 74 years old. Routine annual screening examination. PERTINENT HISTORY: Aunt with breast cancer. Remote left excisional breast biopsy. TECHNIQUE: Digital bilateral breast laurence (3D mammographic acquisition) in the CC and MLO projections. 2-D mediolateral oblique (MLO) and craniocaudad (CC) views of both breasts were obtained. CAD: Full Field Digital Mammography with Computer Added Detection was performed. COMPARISON: Comparison is made with prior study dated December 26, 2022 and December 21, 2021. FINDINGS: Breast Composition: The breasts are extremely dense, which lowers the sensitivity of mammography. There are no dominant masses or suspicious calcifications. Stable small benign-appearing bilateral axillary lymph nodes. No other significant abnormalities are identified. There has been no significant change since the prior study. BI/SCRN MAMM (CAD)W/[facility] BILAT IMPRESSION: Stable bilateral screening mammogram. Yearly follow-up mammogram recommended. (A) ASSESSMENT CATEGORY: BIRADS Category 2: Benign. A letter regarding these results will be sent to the patient by the facility within 30 days. Approximately 10% of breast cancers are not detected by mammography. A normal mammogram should not delay biopsy of a clinically suspicious abnormality. [id number] Electronically Signed: Mitchell Samuel MD at 14:11 EDT ,
== END | disposition home or self-care (01) ==
LOC: OPBI 11:54
PROVIDERS: PCP Family Medicine; Referring Provider Family Medicine; Visit Provider Family Medicine
DX: Z12.31 Encounter for screening mammogram for malignant neoplasm of breast (principal); Z80.3 Family history of malignant neoplasm of breast
CPT/HCPCS: 77063; 77067

== ENCOUNTER → 2024-02-20 | Outpatient (CLI) | payer MEDICARE, SELFPAY ==
--- NOTE | 2024-02-20 12:53 | ECHOD_ITS ---
Reason For Study: Prosthetic Heart Valve Procedure This was a 2D Doppler, Color Flow transthoracic echocardiogram. Exam performed in department. Left Ventricle Normal LV size. The left ventricular ejection fraction is 65 %. Stage 1 diastolic dysfunction. No regional wall motion abnormalities noted. Right Ventricle Normal RV size. Normal systolic function. Atria Normal left atrium. Normal right atrium. Mitral Valve Normal mitral valve. Tricuspid Valve Normal tricuspid valve. Mild tricuspid valve insufficiency. Pulmonary artery systolic pressure is 30 mmHg. Aortic Valve Mean aortic valve gradient 9 mmHg. Bioprosthetic aortic valve. Pulmonic Valve Normal pulmonic valve. Great Vessels Normal aortic root. The pulmonary artery is normal size. Inferior vena cava collapse with respiration. Pericardium/Pleural No pericardial effusion. MMode/2D Measurements & Calculations LVIDd: 3.9 cm IVSd: 0.89 cm LVOT diam: 2.0 cm LVIDs: 2.6 cm LVPWd: 0.73 cm LVOT area: 3.0 cm2 RVDd: 3.0 cm FS: 32.5 % Ao root diam: 3.3 cm LAV(MOD-bp): 14.6 ml LVAd ap4: 16.9 cm2 LAV(MOD-bp) Indexed: 9.5 ml/m2 LVLd ap4: 6.9 cm LAV(MOD-sp2): 11.4 ml EDV(MOD-sp4): 34.3 ml LAV(MOD-sp4): 12.7 ml EDV(sp4-el): 35.3 ml LVAs ap4: 8.9 cm2 LVLs ap4: 5.6 cm ESV(MOD-sp4): 11.9 ml ESV(sp4-el): 12.0 ml EF(MOD-sp4): 65.3 % EF(sp4-el): 66.0 % SV(MOD-sp4): 22.4 ml SV(sp4-el): 23.3 ml LA A4 area: 8.5 cm2 LA dimension(2D): 3.0 cm RA A4 area: 8.5 cm2 TAPSE: 1.9 cm Time Measurements MV dec time: 0.26 sec Doppler Measurements & Calculations MV E max noe: 68.4 cm/sec Lat Peak E' Noe: 8.6 cm/sec Med Peak E' Noe: 7.2 cm/sec MV A max noe: 80.4 cm/sec E/E' lat: 7.9 E/E' med: 9.5 MV E/A: 0.85 Ao V2 max: 194.5 cm/sec LV V1 max: 147.6 cm/sec MV dec slope: 264.4 cm/sec2 Ao max P.2 mmHg LV V1 max P.7 mmHg Ao V2 mean: 141.2 cm/sec LV V1 mean P.7 mmHg Ao mean P.0 mmHg LV V1 mean: 115.6 cm/sec Ao V2 VTI: 42.7 cm LV V1 VTI: 32.7 cm AV (velocity ratio): 0.77 KRISHAN(I,D): 2.3 cm2 KRISHAN(V,D): 2.3 cm2 SV(LVOT): 99.6 ml PA V2 max: 86.7 cm/sec PI end-d noe: 130.9 cm/sec TR max noe: 255.6 cm/sec TR max P.1 mmHg ECHO/Echo Complete Interpretation Summary Normal LV size. The left ventricular ejection fraction is 65 %. Bioprosthetic aortic valve. Stage 1 diastolic dysfunction. Mild tricuspid valve insufficiency. Mean aortic valve gradient 9 mmHg. Ordering Physician: Marquita Chandra Referring Physician: Ilda Alvarez Performed By: Yenny Ram RDCS, RVT
== END | disposition home or self-care (01) ==
LOC: CVS 12:51
PROVIDERS: PCP Family Medicine; Referring Provider Physician Assistant Medical; Visit Provider Physician Assistant Medical
DX: Z95.2 Presence of prosthetic heart valve (principal)
CPT/HCPCS: 93306

== ENCOUNTER → 2025-01-29 | Outpatient (CLI) | payer MEDICARE, SELFPAY ==
[2025-01-29 11:18] LABS: Hematocrit 40.4 % (37-47); Hemoglobin 13.0 g/dL (12.0-15.0); Immature Granulocytes Count 0.010 X10^3/uL (0.0-0.0); Mean Corp Hgb Conc 32.2 g/dL (32-36); Mean Corpuscular Volume 92.7 fL (81-99); Mean Platelet Vol. 11.0 fl (6.2-12.0); NRBC Flagged by Analyzer 0 % (0-5); Platelet Count 162 K/mm3 (150-450); RBC Distribution Width CV 14.5 % (11.6-14.6); RBC Distribution Width SD 49.0 fl (35.1-43.9); Red Blood Count 4.36 M/mm3 (4.2-5.4); White Blood Count 4.5 K/mm3 (4.4-11.0)
[2025-01-29 12:40] LABS: AST(SGOT) 26 U/L (<=31); Alanine Aminotransfer ALT/SGPT 14 U/L (<=34); Albumin, Serum 4.0 g/dL (3.4-4.8); Alkaline Phosphatase 80 U/L (35-104); Anion Gap 10 (5-15); BUN 37 mg/dL (4-19); BUN/Creat Ratio 36.4 RATIO (10-20); Calcium,Total 9.6 mg/dL (7.6-11.0); Carbon Dioxide 24.8 mmol/L (21.0-32.0); Chloride 105 mmol/L (98-108); Cholesterol 212 mg/dL (<=200); Globulin 2.8 g/dL (2.2-4.2); Glucose 84 mg/dL (70-99); Low Density Lipoprotein Calc. 137 mg/dL; Potassium 4.4 mmol/L (3.3-5.1); Triglycerides 108 mg/dL; Very Low Density Lipoprotein 22 mg/dL (5-40); Vitamin D,25 Hydroxy 103.0 ng/mL (30-100); cholesterol:hdl ratio screen 3.98
--- OUTSIDE RECORDS SUMMARY | 2025-01-29 20:57 | XMS RPT_ITS | CCD ---
Author Organization [facility] Care Team Providers Care Harness Placer Name Role Phone Dr. Ilda Alvarez Primary Care Provider Dr. Ilda Alvarez Referring Provider [phone] ELVIA Brambila Attending Provider Dr. Ilda Alvarez Primary Care Provider Dr. Severino Montes Attending Provider Dr. Brendan Rodriguez Referring Provider Marquita Brambila Attending Unavail able Jolliff, Ilda S Referring Unavailable Jolliff, Ilda S Primary Care Unavailable EliazarJc oseiril Attending Unavailable Allaiff, Ilda S Primary Care Unavailable Marquita Brambila Referring Unavail able Marquita Brambila Attending Unavail able Jolliff, Ilda S Primary Care Unavailable Joseph Lyman Referring Unavailable Joseph Lyman Attending Unavailable Jolliff, Ilda S Primary Care Unavailable Joseph Lyman MD Primary Care Provider Joseph Lyman MD Attending Provider Joseph Lyman MD Referring Provider [phone] Dr. Ilda Alvarez MD Referring Provider Marquita Brambila Attending Provider Allergies Allergy Classification Reported Allergen(s) Allergy Type Date of Onset Reaction(s) Facility (7 sources) Adhesive Tape; Translations: [adhesive tape] Propensity to adverse reactions 1 blisters [facility] (2 sources) tomatoes Allergy to substance 9 Hives [facility] Work Phone: (4 sources) tomato allergenic extract Drug Allergy [facility] Comment on above: RAW TOMATOES ONLY (1 source) tomato allergenic extract Drug Allergy 4 [facility] Repository Medications Current Medications Medication Drug Class(es) Dates Sig (Normalized) Sig (Original) ascorbic acid 1000 mg oral tablet (6 sources) Vitamin C Start: 06-20-2017 take 1 g by mouth once daily Ascorbic Acid (Vitamin C) 1,000 mg tablet Active 1 g PO daily June 20, 2017 1:00am Start: 06-20-2017 take 1 g by mouth once daily A scorbic Acid (Vitamin C) Active 1 GM PO daily June 20, 2017 1:00am aspirin 81 mg delayed release oral tablet (6 sources) Platelet Aggregation Inhibitor, Nonsteroidal Anti-inflammatory Drug Start: 06-20-2017 take 1 tablet by mouth once daily Aspirin (Adult Aspirin Regimen) 81 mg tablet,delayed release (DR/EC) Active 81 mg PO daily June 20, 2017 1:00am calcium polycarbophil 625 mg oral tablet (6 sources) Start: 06-20-2017 Calcium Polycarbophil (Fiber Laxative (Ca Polycarbo)) 625 mg tablet Active 1250 mg PO daily June 20, 2017 1:00am Cranberry (6 sources) Non-Standardized Food Allergenic Extract, Non-Standardized Plant Allergenic Extract Start: 06-20-2017 take 400 mg by mouth once daily Cranberry Active 400 MG PO daily June 20, 2017 8:39pm Start: 06-20-2017 take 1 capsule by mo ut once daily Cranberry Fruit 400 mg capsule Active 400 mg PO daily June 20, 2017 1:00am Start: 06-20-2017 take 400 mg by mouth once kristin y Cranberry Active 400 MG PO daily June 20, 2017 1:00am Lactobacillus Combination No.9 (Adult 50 Plus Probiotic) 4 billion cell capsule (1 source) Start: 02-02-2023 take 4 capsules by mouth once daily Lactobacillus Combination No.9 (Adult 50 Plus Probiotic) 4 billion cell capsule Active 4000 NMA PO DAILY February 02, 2023 12:00am administer with a meal magnesium oxide 250 mg oral tablet (1 source) Start: 01-29-2025 take 1 tablet by mouth once daily Magnesium Oxide 250 mg magnesium tablet Active 250 mg PO daily January 29, 2025 12:00am methenamine mandelate 500 mg oral tablet (1 source) Start: 01-29-2025 Methenamine Ma ndelate 0.5 gram tablet Active 0.5 g PO TWICE A DAY January 29, 2025 12:00am administer after meals and at bedtime Multivitamin preparation (5 sources) Start: 06-20-2017 take 1 tablet by mouth once daily Multivitamin Active 1 TABLET PO daily June 20, 2017 8:41pm Start: 06-20-2017 take 1 tablet by savana once daily Multivitamin Active 1 TABLET PO daily June 20, 2017 1:00am Multivitamin tablet (1 source) Start: 06-20-2017 Multivitamin t ablet Active 1 {tbl} PO daily June 20, 2017 1:00am Vitamin B Complex (5 sources) Start: 06-20-2017 take 1 capsule by mouth once daily Vitamin B Complex Active 1 CAP PO daily June 20, 2017 8:40pm Start: 06-20-2017 take 1 capsule by mo [facility] once daily Vitamin B Complex Active 1 CAP PO daily June 20, 2017 1:00am Vitamin B Complex capsule (1 source) Start: 06-20-2017 Vitamin B Comp denise capsule Active 1 NMA PO daily June 20, 2017 1:00am vitamin B12 (1 source) Vitamin B12 Start: 01-29-2025 cyanocobalamin (vitamin B-12) Active PO January 29, 2025 12:00am vitamin e 450 mg oral capsule (6 sources) Start: 06-20-2017 Vitamin E (Dl, Acetate) 1,000 unit capsule Active 1000 U PO daily June 20, 2017 1:00am Completed/Discontinued Medications Medication Drug Class(es) Dates Sig (Normalized) Sig (Original) acetaminophen 325 mg / oxyCODONE hydrochloride 5 mg oral tablet (6 sources) Opioid Agonist Start: 03-17-2018 End: 06-19-2018 Oxycodone-Acetamino phen 1 TABLET tablet Discontinued 1 {tbl} PO EVERY 6 HOURS NEEDED as needed for Pain March 17, 2018 12:00am June 19, 2018 11:43am Compression fracture of first lumbar vertebra Start: 03-17-2018 End: 06-19-2018 take 1 tablet by mouth every six hours as needed Oxycodone-Acetaminophen Discontinued 1 TABLET PO EVERY 6 HOURS NEEDED 03 12March 17, 2018 12:00am June 19, 2018 11:43am atorvastatin 10 mg oral tablet (6 sources) HMG-CoA Reductase Inhibitor Start: 06-20-2017 End: 06-22-2017 take 1 tablet by mouth once daily Atorvastatin 10 mg tablet Discontinued 10 mg PO daily June 20, 2017 1:00am June 22, 2017 12:32pm cinnamon bark 500 mg oral capsule (6 sources) Start: 06-19-2018 End: 11-03-2020 take 1 capsule by mouth once daily Cinnamon Bark 500 mg capsule Discontinued 500 mg PO DAILY June 19, 2018 1:00am November 03, 2020 2:33pm clopidogrel 75 mg oral tablet (6 sources) P2Y12 Platelet Inhibitor Start: 07-19-2018 End: 07-23-2018 take 4 tablets by mouth once daily, then take 1 tablet by mouth once daily Clopidogrel (Plavix) 75 mg tablet Discontinued 75 mg PO DAILY 15 08July 19, 2018 1:00am July 23, 2018 2:04pm Take four tablets 07/19/2018 and then one tablet daily. Garlic (6 sources) Non-Standardized Food Allergenic Extract Start: 06-22-2017 End: 11-03-2020 take 5 mg by mouth once daily Garlic (Garlique) 5,000 mcg tablet Discontinued 5 MG PO daily June 22, 2017 12:33pm November 03, 2020 2:33pm Start: 06-22-2017 End: 11-03-2020 take 5 mg by mouth once daily Garlic (Garlique) 5,000 mcg tablet Discontinued 5 mg PO daily June 22, 2017 1:00am November 03, 2020 2:33pm Start: 06-22-2017 End: 11-03-2020 take 5 mg by mouth once daily Garlic (Garlique) 5,000 mcg tablet Discontinued 5 MG PO daily June 22, 2017 1:00am November 03, 2020 2:33pm [place]-3 Fatty Acids-Fish Oil (Fish Oil) 300-500 mg capsule (1 source) Start: 02-02-2023 End: 01-29-2025 [place]-3 Fatty Acids-Fish Oil (Fish Oil) 300-500 mg capsule Discontinued NMA PO February 02, 2023 12:00am January 29, 2025 11:24am Soy Isofla-Blk Cohosh-Mag Bark (Estroven) 155 mg capsule (6 sources) Start: 06-20-2017 End: 06-22-2017 take 1 capsule by mouth once daily Soy Isofla-Blk Cohosh-Mag Bark (Estroven) 155 mg capsule Discontinued CAP PO daily June 20, 2017 8:38pm June 22, 2017 12:32pm Start: 06-20-2017 End: 06-22-2017 take 1 capsule by mouth once daily Soy Isofla-Blk Coh[place]-Mag Bark (Estroven) 155 mg capsule Discontinued NMA PO daily 0 June 20, 2017 1:00am June 22, 2017 12:32pm Start: 06-20-2017 End: 06-22-2017 take 1 capsule by mouth once daily Soy Isofla-Blk Cohosh-Mag Bark (Estroven) 155 mg capsule Discontinued CAP PO daily June 20, 2017 1:00am June 22, 2017 12:32pm Problems Problem Classification Problem Date Documented Date Episodic/Chronic Aortic; peripheral; and visceral artery aneurysms (8 sources) Aneurysm of thoracic aorta; Translations: [Thoracic aortic aneurysm, without rupture] Chronic Disorders of lipid metabolism (6 sources) Hyperlipidemia; Translations: [Hyperlipidemia, unspecified] 07-23-2018 Chronic Heart valve disorders (15 sources) Aortic stenosis, non-rheumatic ; Translations: [Nonrheumatic aortic (valve) stenosis] Onset: 08-25-2009 Chronic Comment on above: AVR w/ 21 mm CE bovi ne pericardial aortic valve and reduction ascending aortoplasty 2009 Nonspecific chest pain (6 sources) Chest pain; Translations: [Chest pain, unspecified] 06-16-2019 Episodic Other screening for suspected conditions (not mental disorders or infectious disease) (7 sources) Thallium stress test abnormal; Translations: [Abnormal result of other cardiovascular function study] Onset: 01-23-2025 06-16-2019 Episodic Results Test Name Value Interpretation Reference Range Facility Absolute lymphocyte countOrd ered By: Joseph Lyman on 01-29-2025 Lymphocytes Auto (Unsp spec) [#/Vol] 1.48 10*3/uL 0.83-4.51 [facility] Absolute neutrophil countOrd ered By: Joseph Lyman on 01-29-2025 Neutrophils (Bld) [#/Vol] 2.2 10*3/uL 2.0-7.7 [facility] Automated lymphocyte count a s percentage of total leukocytesOrdered By: Joseph Lyman on 01-29-2025 Lymphocytes/100 WBC Auto (Unsp spec) 32.6 % 19-41 [facility] Basophil percentageOrdered B y: Joseph Lyman on 01-29-2025 Basophils/100 WBC (Bld) 0.9 % 0-1 [facility] Eosinophil percentageOrdered By: Joseph Kellerke on 01-29-2025 Eosinophils/100 WBC (Bld) 2.4 % 0-5 [facility] Erythrocyte distribution wid th ratioOrdered By: Joseph Kellerke on 01-29-2025 Erythrocyte distribution width (RBC) [Ratio] 14.5 % 11.6-14.6 [facility] Erythrocyte distribution wid th standard deviationOrdered By: Joseph Kellerke on 01-29-2025 Erythrocyte distribution width (RBC) [Ratio] 49.0 fl High 35.1-43.9 [facility] Hematocrit Auto (Bld) [Volum e fraction]Ordered By: Joseph Kellerke on 01-29-2025 Hematocrit (Bld) [Volume fraction] 40.4 % 37-47 [facility] Hemoglobin measurementOrdere d By: Scottydiya Kellerke on 01-29-2025 Hemoglobin (Bld) [Mass/Vol] 13.0 g/dL 12.0-15.0 [facility] Immature granulocytes/100 WB C Auto (Bld)Ordered By: Joseph Kellerke on 01-29-2025 Immature granulocytes/100 WBC (Bld) 0.200 % 0.0-0.9 [facility] Comment on above: IG% - Immature Granu locytes (promyelocytes, myelocytes and metamyelocytes) > 1% indicates that a LEFT SHIFT is Present. MCV (mean corpuscular volume ) determinationOrdered By: Joseph Kellerke on 01-29-2025 MCV (RBC) [Entitic vol] 92.7 fL 81-99 [facility] Mean corpuscular hemoglobin (MCH) determinationOrdered By: Joseph Kellerke on 01-29-2025 MCH (RBC) [Entitic mass] 29.8 pg 27.0-32.0 [facility] Mean corpuscular hemoglobin concentration (MCHC) determinationOrdered By: Joseph Esmer on 01-29-2025 MCHC (RBC) [Mass/Vol] 32.2 g/dL 32-36 [facility] Mean platelet volume determi nationOrdered By: Joseph Lyman on 01-29-2025 Platelet mean volume (Bld) [Entitic vol] 11.0 fL 6.2-12.0 [facility] Monocyte percentageOrdered B y: Joseph Lyman on 01-29-2025 Monocytes/100 WBC (Bld) 14.5 % High 0-10 [facility] Neutrophil percentageOrdered By: Joseph Lyman on 01-29-2025 Neutrophils/100 WBC (Bld) 49.4 % 47-70 [facility] Nucleated red blood cell per centageOrdered By: Joseph Lyman on 01-29-2025 Nucleated RBC/100 WBC (Bld) [Ratio] 0 % 0-5 [facility] Platelet countOrdered By: Anand velezon Esmer on 01-29-2025 Platelets (Bld) [#/Vol] 162 10*3/uL 150-450 [facility] RBC Auto (Bld) [#/Vol]Ordere d By: Joseph Lyman on 01-29-2025 RBC (Bld) [#/Vol] 4.36 10*6/uL 4.2-5.4 [facility] White blood cell (WBC) count Ordered By: Joseph Lyman on 01-29-2025 WBC (Bld) [#/Vol] 4.5 10*3/uL 4.4-11.0 [facility] Echo Completeon 02-20-2024 Echo [facility] [address] [place] [address] Echo Complete 02/20/24 1310 MR#: [id number] Acct: [id number] Name: VENECIA KAUR Rep #: [id number] : 1950 74 From: Martin Perea MD Attending Dr: ELVIA Staton Status: REG CLI Ordering Dr: Marquita Chandra Date: 01/07 Location: CVS Sex: F C Admitted: Reason For Study: Prosthetic Heart Valve Procedure This was a 2D Doppler, Color Flow transthoracic echocardiogram. Exam performed in department. Left Ventricle Normal LV size. The left ventricular ejection fraction is 65 %. Stage 1 diastolic dysfunction. No regional wall motion abnormalities noted. Right Ventricle Normal RV size. Normal systolic function. Atria Normal left atrium. Normal right atrium. Mitral Valve Normal mitral valve. Tricuspid Valve Normal tricuspid valve. Mild tricuspid valve insufficiency. Pulmonary artery systolic pressure is 30 mmHg. Aortic Valve Mean aortic valve gradient 9 mmHg. Bioprosthetic aortic valve. Pulmonic Valve Normal pulmonic valve. Great Vessels Normal aortic root. The pulmonary artery is normal size. Inferior vena cava collapse with respiration. Pericardium/Pleural No pericardial effusion. MMode/2D Measurements Calculations LVIDd: 3.9 cm IVSd: 0.89 cm LVOT diam: 2.0 cm LVIDs: 2.6 cm LVPWd: 0.73 cm LVOT area: 3.0 cm2 RVDd: 3.0 cm FS: 32.5 % Ao root diam: 3.3 cm LAV(MOD-bp): 14.6 ml LVAd ap4: 16.9 cm2 LAV(MOD-bp) Indexed: 9.5 ml/m2 LVLd ap4: 6.9 cm LAV(MOD-sp2): 11.4 ml EDV(MOD-sp4): 34.3 ml LAV(MOD-sp4): 12.7 ml EDV(sp4-el): 35.3 ml LVAs ap4: 8.9 cm2 LVLs ap4: 5.6 cm ESV(MOD-sp4): 11.9 ml ESV(sp4-el): 12.0 ml EF(MOD-sp4): 65.3 % EF(sp4-el): 66.0 % SV(MOD-sp4): 22.4 ml SV(sp4-el): 23.3 ml LA A4 area: 8.5 cm2 LA dimension(2D): 3.0 cm RA A4 area: 8.5 cm2 TAPSE: 1.9 cm Time Measurements MV dec time: 0.26 sec Doppler Measurements Calculations MV E max noe: 68.4 cm/sec Lat Peak E' Noe: 8.6 cm/sec Med Peak E' Noe: 7.2 cm/sec MV A max noe: 80.4 cm/sec E/E' lat: 7.9 E/E' med: 9.5 MV E/A: 0.85 Ao V2 max: 194.5 cm/sec LV V1 max: 147.6 cm/sec MV dec slope: 264.4 cm/sec2 Ao max P.2 mmHg LV V1 max P.7 mmHg Ao V2 mean: 141.2 cm/sec LV V1 mean P.7 mmHg Ao mean P.0 mmHg LV V1 mean: 115.6 cm/sec Ao V2 VTI: 42.7 cm LV V1 VTI: 32.7 cm AV (velocity ratio): 0.77 KRISHAN(I,D): 2.3 cm2 KRISHAN(V,D): 2.3 cm2 SV(LVOT): 99.6 ml PA V2 max: 86.7 cm/sec PI end-d noe: 130.9 cm/sec TR max noe: 255.6 cm/sec TR max P.1 mmHg ECHO/Echo Complete Interpretation Summary Normal LV size. The left ventricular ejection fraction is 65 %. Bioprosthetic aortic valve. Stage 1 diastolic dysfunction. Mild tricuspid valve insufficiency. Mean aortic valve gradient 9 mmHg. __ Ordering Physician: Marquita Chandra Referring Physician: Ilda Alvarez Performed By: Yenny Ram, ELIZABETH, RVT 02/20/24 1549 Date Martin Perea MD CC: Dr. Ilda Alvarez MD; ELVIA Staton Date Dictated: 02/20/24 1310 Date Transcribed: 02/20/241548 Cardiopulmonary Supervisor: Signed Normal [facility] Cardiology Visit Reporton Cardiology Visit Report [facility] [address] [place] [address] OFFICE VISIT Date of Service: 01/30/24 MR#: [id number] Acct: [id number] Name: VENECIA KAUR Rep #: [id number] : 1950 Provider: ELVIA Cuevas Age/Sex: 74/F Location: [facility] Status: Signed HPI HPI History of Present Illness Details: VENECIA KAUR, is a 74 F who presents to the office today for a follow-up visit.??? She is a lady with a history of aortic valve replacement with a Fariba Garza bovine pericardial valve 10 years ago.??? She is having issues with heartburn and epigastric pain after she eats. Tums do help. She does not have any chest pain. She does get SOB with activities but feels that this is normal for her. She is getting leg cramps. Her right leg is larger then her left leg. This has been going on for a year. She does not have any palpitations. She does sometimes have positional dizziness. No syncope. Intake Vital Signs 02/02/23 10:13 01/30/24 10:47 01/30/24 10:48 Height 4 ft 11 in 4 ft 11 in 4 ft 11 in Weight: 138 lb BMI 27.8 BP 122/73 H Blood Pressure Location Lt brachial Position Sitting Respiration 18 Pulse 71 Pulse Source Monitor Pulse Oximetry (%) 95 Intake Visit Reasons: 1 Y FU Cell Reliner Required: No Is patient in pain?: No Allergies tomato Allergy (Intermediate, Verified 01/30/24 10:49) Hives adhesive tape Adverse Reaction (Verified 01/30/24 10:49) blisters Medications ???Medication ???Instructions ???Recorded ???Confirmed ???Type ascorbic acid (vitamin C) 1,000 mg 1 g PO QDAY 06/20/17 01/30/24 History tablet aspirin 81 mg tablet,delayed 81 mg PO QDAY 06/20/17 01/30/24 History release (Adult Aspirin Regimen) calcium polycarbophil 625 mg 1,250 mg PO QDAY 06/20/17 01/30/24 History tablet (Fiber Laxative (calcium polycarbophil)) cranberry 400 mg capsule 400 mg PO QDAY 06/20/17 01/30/24 History multivitamin 1 tab PO QDAY 06/20/17 01/30/24 History vitamin B complex 1 cap PO QDAY 06/20/17 01/30/24 History vitamin E (dl, acetate) 450 mg 1,000 unit PO QDAY 06/20/17 01/30/24 History (1,000 unit) capsule lactobacillus combination no.9 4 4,000 mmu cells PO DAILY 02/02/23 01/30/24 History billion cell capsule (Adult 50 Plus Probiotic) omega-3 fatty acids-fish oil 300 cap PO 02/02/23 02/02/23 History mg-500 mg capsule (Fish Oil) Have you fallen in the past year?: No PFSH Medical History Thoracic aortic aneurysm (TAA) Bicuspid aortic valve Obesity Non-rheumatic aortic stenosis Hyperlipidemia Ascending aortic aneurysm Surgical History History of left heart catheterization (07/23/18) H/O breast biopsy History of appendectomy H/O aortic valve replacement (08/25/09) Family History Father No problems noted. Mother , of CHF Diabetes CAD (coronary artery disease) Brother Hx of deep venous thrombosis Social History Smoking Status: Never smoker alcohol intake: never ROS Const Const: Positive for fatigue; Negative for weakness, headache(s), frequent falls, difficulty sleeping or excessive sweating Eyes Eyes: Negative for loss of peripheral vision, transient loss of vision, blurry vision, double vision or tunnel vision ENT ENT: Negative for headache(s), dizziness, Nosebleed/epistaxis or balance problems Cardio Chest Pain: No Palpitations: No Edema: Bilateral Muscle aches with walking: None Resp Respiratory: Negative for SOB with activity, SOB at rest, SOB orthopnea SOB lying down, Cough or paroxysmal nocturnal dyspnea GI GI: Negative nausea, vomiting or heartburn : Negative for hematuria Musc Musc: Negative for muscle aches/ myalgia, muscle weakness, joint pain or balance problems Skin Skin: Negative non-healing lesions, rash or unusual bruising Neuro Neuro: Negative for dizziness, lightheadedness, near syncope, syncope, orthostatic symptoms, frequent falls, headache(s), weakness, confusion, memory loss, blurry vision, double vision, vertigo or lack of coordination Santhosh Hematologic/Lymphat ic: Negative for easy bleeding or easy bruising Endo Endo: Positive for fatigue; Negative for excessive sweating, flushing or increased thirst/drinking Psych Psych: Negative for anxiety or depression Allergy Allergy/Immunology: Negative for hives and Negative for rash Cardiology Exam Const Appearance: cooperative, healthy appearing, comfortable, no acute distress and well developed Orientation: alert, awake and oriented x3 Head Head: normal to (more content not included)... Normal [facility] Basophil percentageOrdered B y: Dr. Alvarez on 10-18-2022 Chloride [Moles/Vol] 105 mmol/L 98-107 [facility] Cholesterol [Mass/Vol] 231 mg/dL <200 [facility] Comment on above: <200 mg/dL Desirable 200-240 mg/dL Borderline >240 mg/dL High Risk Glucose [Mass/Vol] 86 mg/dL 74-106 [facility] Potassium [Moles/Vol] 4.0 mmol/L 3.5-5.1 [facility] Sodium [Moles/Vol] 139 mmol/L 136-145 [facility] Triglyceride [Mass/Vol] 167 mg/dL <199 [facility] Comment on above: The drugs N-Acetylcy steine and Metamizole may falsely depress this assay.Serum Triglycerides Reference Interval Normal <150 mg/dL Borderline high 150 - 199 mg/dL High 200 - 499 mg/dL Very High > or = 500 mg/dL Laboratory - Chemistry and C hemistry - challengeOrdered By: Dr. Alvarez on 10-18-2022 CO2 [Moles/Vol] 27.0 mmol/L 21.0-32.0 [facility] Urea nitrogen/Creatinine [Mass ratio] 31.8 mg/mg 10-20 [facility] No Panel InformationOrdered By: Dr. Alvarez on 10-18-2022 Estimated GFR (MDRD) Amer 77 mL/min >60 [facility] Comment on above: GFR Calc Estimated GFR (MDRD) Non-Af Amer 64 mL/min >60 [facility] Comment on above: Non- GFR Calc Thyroid Stimulating Hormone (TSH) 2.50 uIU/mL 0.358-3.74 [facility] Serum or plasma calcium bryson urement (mass/volume)Ordered By: Dr. Alvarez on 10-18-2022 Calcium [Mass/Vol] 10.0 mg/dL 8.5-10.1 [facility] Serum or plasma cholesterol in HDL measurement (mass/volume)Ordered By: Dr. Alvarez on 10-18-2022 Cholesterol in HDL [Mass/Vol] 52 mg/dL >40 [facility] Comment on above: The drugs N-Acetylcy steine and Metamizole may falsely depress this assay. Reference Range HDL <40 mg/dL Low HDL Cholesterol HDL >or= 60 mg/dL High HDL Cholesterol Serum or plasma cholesterol in VLDL measurement (mass/volume)Ordered By: Dr. Alvarez on 10-18-2022 Cholesterol in VLDL [Mass/Vol] 33 mg/dL 5-40 [facility] Serum or plasma creatinine m easurement (mass/volume)Ordered By: Dr. Alvarez on 10-18-2022 Creatinine [Mass/Vol] 0.91 mg/dL 0.55-1.02 [facility] Comment on above: The validity of the calculated GFR & GFRAA in patients over 70 years has not been determined. Clinical correlation is essential. Serum or plasma low density lipoprotein (LDL) cholesterol measurement (mass/volume)Ordered By: Dr. Alvarez on 10-18-2022 Cholesterol in LDL [Mass/Vol] 146 mg/dL 0-130 [facility] Serum or plasma urea nitroge n measurement (mass/volume)Ordered By: Dr. Alvarez on 10-18-2022 Urea nitrogen [Mass/Vol] 29 mg/dL 7-18 [facility] Thin prep Papanicolaou smear with manual screeningOrdered By: Dr. Alvarez on 10-18-2022 Thin prep Papanicolaou smear with manual screening 7 5-15 [facility] Whole blood hemoglobin A1c/t otal hemoglobin ratio (mass fraction)Ordered By: Dr. Alvarez on 10-18-2022 HbA1c (Bld) [Mass fraction] 5.1 % 3.8-5.6 [facility] Comment on above: Normal < 5.7 % Predi abetic 5.7 - 6.4 % Diabetic >or= 6.5 % Please note range changes. Vital Signs Date Time Vital Sign Value Performing Clinician Danilo ramirez 01-29-2025 11:18-0400 Body height 149.86 cm Joseph Lyman MD Work Phone: [facility] 01-29-2025 11:18-0400 Body mass index (BMI) [Ratio] 27.8 kg/m2 Joseph Lyman MD Work Phone: [facility] 01-29-2025 11:18-0400 Body weight 62.59 kg Joseph Lyman MD Work Phone: [facility] 01-29-2025 11:18-0400 Diastolic blood pressure 84 mm[Hg] Joseph Lyman MD Work Phone: [facility] 01-29-2025 11:18-0400 Heart rate 62 /min Joseph Lyman MD Work Phone: [facility] 01-29-2025 11:18-0400 Respiratory rate 16 /min Joseph Lyman MD Work Phone: [facility] 01-29-2025 11:18-0400 Systolic blood pressure 132 mm[Hg] Joseph Lyman MD Work Phone: [facility] 01-10-2022 14:51-0400 Body height 149.[address] Ilda Alvarez Work Phone: [facility] Work Phone: 01-10-2022 14:51-0400 Body mass index (BMI) [Ratio] 27.2 kg/m2 Dr. Ilda Alvarez Work Phone: [facility] Work Phone: 01-10-2022 14:51-0400 Body weight 61.[address] Ilda Alvarez Work Phone: [facility] Work Phone: 01-10-2022 14:51-0400 Diastolic blood pressure 82 mm[Hg] Dr. Ilda Alvarez Work Phone: [facility] Work Phone: 01-10-2022 14:51-0400 Heart rate 80 /min Dr. Ilda Alvarez Work Phone: [facility] Work Phone: 01-10-2022 14:51-0400 Respiratory rate 18 /min Dr. Ilda Alvarez Work Phone: [facility] Work Phone: 01-10-2022 14:51-0400 SaO2% (BldA) [Mass fraction] 97 % Dr. Ilda Alvarez Work Phone: [facility] Work Phone: 01-10-2022 14:51-0400 Systolic blood pressure 123 mm[Hg] Dr. Ilda Alvarez Work Phone: [facility] Work Phone: Encounters Encounter Date Encounter Type Care Provider Facility Start: 01-29-2025 ambulatory Joseph Lyman Facility:[facility] Start: 01-29-2025 End: 01-29-2025 ambulatory Joseph Lyman MD Work Phone: -[facility] Start: 01-29-2025 End: 01-29-2025 Patient encounter procedure Marquita GAN -[facility] Work Phone: Start: 02-20-2024 ambulatory Martin Perea Facility:[facility] Start: 02-20-2024 End: 02-20-2024 ambulatory Marquita GAN Facility:[facility] Start: 01-30-2024 End: 01-30-2024 ambulatory Marquita GAN Facility:[facility] Start: 12-26-2022 End: 12-26-[address] Ilda Alvarez Work Phone: [facility] Work Phone: Start: 12-26-2022 End: 12-26-[address] Ilda Alvarez Work Phone: [facility]-Outpatient Breast Imaging Start: 10-25-2022 Non-patient / Non-visit Dr. Robin Alvarez Work Phone: [facility] Start: 10-25-2022 End: 10-25-[address] Ilda Alvarez Work Phone: [facility] Work Phone: Start: 10-25-2022 End: 10-25-2022 Patient encounter procedure [facility] Start: 10-18-2022 End: 10-18-2022 ambulatory [facility] Work Phone: Start: 10-18-2022 End: 10-18-2022 Patient encounter procedure [facility] Start: 01-10-2022 End: 01-10-[address] Ilda Alvarez Work Phone: [facility] Start: 12-21-2021 End: 12-21-2021 Patient encounter procedure [facility]-Outpatient Breast Imaging Start: 09-21-2021 Registered Recurring [facility]-Physical Therapy Procedures Date Procedure Procedure Detail Performing Clinician Start: 12-26-2022 Screening mammography Rolando Alvarez Work Phone: Start: 12-21-2021 Screening mammography Plan of Treatment Date Care Activity Detail Author Start: 01-29-2025 Vitamin D, 25-hydroxy measurement [facility] Alanine aminotransfe rase [Enzymatic activity/volume] in Serum or Plasma [facility] Albumin [Mass/volume ] in Serum or Plasma [facility] Alkaline phosphatase [Enzymatic activity/volume] in Serum or Plasma [facility] Anion gap in Serum or Plasma [facility] Bilirubin, total measurement [facility] BUN/Creatinine ratio [facility] Calcium [Mass/volume ] in Serum or Plasma [facility] Carbon dioxide, tota l [Moles/volume] in Central venous blood [facility] Cholesterol [Mass/vo lume] in Serum or Plasma [facility] Cholesterol in HDL [ Mass/volume] in Serum or Plasma [facility] Creatinine [Mass/vol ume] in Serum or Plasma [facility] Glucose [Mass/volume ] in Serum or Plasma [facility] Low density lipoprot ein cholesterol measurement [facility] Measurement of renal function [facility] Potassium measurement [facility] Serum chloride measurement [facility] Sodium measurement [facility] Total cholesterol:HD L ratio measurement [facility] Total protein measurement [facility] Triglycerides measurement [facility] Urea nitrogen [Mass/ volume] in Serum or Plasma [facility] VLDL cholesterol measurement [facility] Immunizations Immunization Date Immunization Notes Care Provider Fa cility 10-13-2020 Covid (Pfizer) [facility] 09-22-2020 Covid (Pfizer) [facility] Payers Date Payer Category Payer Self-pay [id number] 2014 Unknown [id number] Medicare [id number] Unknown [id number] Unknown [id number] Unknown [id number] Unknown [id number] Social History Date Type Detail Facility Start: 11-03-2020 End: 01-10-2022 Tobacco smoking status NHIS Unknown if ever smoked [facility] Start: 1950 Sex Assigned At Female [facility] Start: 02-02-2023 Tobacco smoking stat us NHIS Never smoked tobacco (finding) [facility] Progress note 01-29-2025 Note Date & Type Note Facility 01-29-2025 Progress note [facility] Progress note 01-29-2025 Note Date & Type Note Facility 01-29-2025 Progress note Note Date/Time January 29, 2025 11:43am [facility] [address] [place] [address] OFFICE VISIT Date of Service: 01/29/25 MR#: [id number] Acct: [id number] Name: VENECIA KAUR Rep #: [id number] : 1950 Provider: ELVIA Staton Age/Sex: 75/F Location: [facility] Status: Signed HPI HPI History of Present Illness Details: VENECIA KAUR, is a 75 F who presents to the office today for a follow-up visit.? She is a lady with a history of aortic valve replacement with a Fariba Garza bovine pericardial valve 10 years ago.? From a cardiac standpoint, patient is doing well. She does not have any chest discomfort/heaviness/tightness. She does not have any worsening symptoms of shortness of breath. She does not have any orthopnea. She denies PND. She does not have any symptoms of congestive heart failure. She does not have any palpitations that she is aware of. She does sometimes have positional dizziness. She does not have any near-syncope or syncope. She does have chronic edema, this is not any worse. She does not have any symptoms of claudication. Intake Vital Signs 01/30/24 10:48 01/29/25 11:18 Height 4 ft 11 in 4 ft 11 in Weight: 138 lb BMI 27.8 BP 132/84 H Blood Pressure Location Lt brachial Position Sitting Respiration 16 Pulse 62 Pulse Source NIBP Intake Visit Reasons: 1 Y FU Cell Reliner Required: No Is patient in pain?: No Allergies tomato Allergy (Intermediate, Verified 01/29/25 11:23) Hives adhesive tape Adverse Reaction (Verified 01/29/25 11:23) blisters Medications ?Medication ?Instructions ?Recorded ?Confirmed ?Type ascorbic acid (vitamin C) 1,000 mg 1 g PO QDAY 7 01/29/25 History tablet aspirin 81 mg tablet,delayed 81 mg PO QDAY 06/20/17 History release (Adult Aspirin Regimen) calcium polycarbophil 625 mg 1,250 mg PO QDAY 06/20/17 01/29/25 History tablet (Fiber Laxative (calcium polycarbophil)) cranberry fruit 400 mg capsule 400 mg PO QDAY 06/20/17 01/29/25 History multivitamin 1 tab PO QDAY 06/20/1701/29 History vitamin B complex 1 cap PO QDAY 06/20/1701/29 History vitamin E (dl, acetate) 450 mg 1,000 unit PO QDAY 11/3001/29/25 History (1,000 unit) capsule lactobacillus combination no.9 4 4,000 mmu cells PO DA HELDER 02/02/23 01/29/25 History billion cell capsule (Adult 50 Plus Probiotic) cyanocobalamin (vitamin B-12) PO 01/29/25 01/29/25 His tory magnesium oxide 250 mg PO QDAY 01/29/2501/14 History methenamine mandelate 0.5 gram 0.5 g PO BID 01/29/25 0 01/29/25 History tablet Ejection fraction %: 65 Have you fallen in the past year?: No PFSH Medical History Thoracic aortic aneurysm (TAA) Bicuspid aortic valve Obesity Non-rheumatic aortic stenosis Hyperlipidemia Ascending aortic aneurysm Surgical History (Updated 01/29/25 @ 11:35 by Marquita GAN, PA) History of left heart catheterization (07/23/18) H/O breast biopsy History of appendectomy H/O aortic valve replacement (08/25/09) Family History Father No problems noted. Mother , of CHF Diabetes CAD (coronary artery disease) Brother Hx of deep venous thrombosis Social History Smoking Status: Never smoker alcohol intake: never ROS Const Const: Negative for fatigue or weakness Eyes Eyes: Negative for change in vision ENT ENT: Positive for balance problems (Unsteady at times); Negative for dizziness Cardio Chest Pain: No Palpitations: No Edema: Bilateral (Right > left-unchanged) Resp Respiratory: Negative for SOB with activity, SOB at rest or SOB orthopnea\SOB lying down GI GI: Negative nausea or heartburn Musc Musc: Positive for balance problems (Unsteady at times) Neuro Neuro: Positive for lightheadedness (Occasionally when standing up too quickly); Negative for dizziness, near syncope, syncope or weakness Endo Endo: Negative for fatigue Cardiology Exam Const Appearance: cooperative, healthy appearing, comfortable, no acute distress and well developed Orientation: alert, awake and oriented x3 Head Head: normal to inspection Ears: hearing grossly normal bilaterally Nose: external nose normal Face and Sinus: face symmetric Mouth: oral mucosae normal, lip normal and moist mucous membranes Eyes General: appearance normal, both eyes and all related structures Eyelids: eyelids normal Conjunctivae: conjunctivae normal Pupils: PERRL EOM: EOM intact bilaterally Neck Neck: normal visual inspection and trachea midline; Negative no JVD Carotids: Negative bruit Chest Chest inspection: normal inspection of the chest Auscultation: Bilateral: Clear to Auscultation Cardio Palpation: normal PMI Rate: regular rate Rhythm: regular rhythm Heart sounds: S1 normal and S2 normal; Negative rub or gallop Murmur: Grade 1/6, soft and mid systolic GI GI: soft, no hepatosplenomegaly and bowel sounds present Neuro General: patient alert, patient awake, patient oriented x3 and CN's II-XI intactbilaterally Extremities Pulses: Normal: Right Posterior Tibial Pulse, Left Posterior Tibial Pulse, RightRadial Pulse and Left Radial Pulse Lower Extremity Edema: None: Bilateral (no swelling noted) Psych Psychological: normal affect Supplemental Info Supplemental Information Carotid Duplex 10/25/22 Interpretation Summary: Normal right extracranial internal carotid. Normal left extracranial internal carotid. Patent and antegrade vertebrals bilaterally. Echocardiogram 2020: Normal LV size. Left ventricular systolic function is normal. The estimated ejection fraction is 60 %. Stage 1 diastolic dysfunction. Mean aortic valve gradient 6 mmHg. Bioprosthetic aortic valve. Echocardiogram 2023: Normal LV size. The left ventricular ejection fraction is 65 %. Bioprosthetic aortic valve. Stage 1 diastolic dysfunction. Mild tricuspid valve insufficiency. Mean aortic valve gradient 9 mmHg. Assessment and Plan Assessment and Plan (1) H/O aortic valve replacement: Status: Resolved Comment: AVR w/ 21 mm CE bovine pericardial aortic valve and reduction ascending aortoplasty 2009 Plan: She is status post aortic valve replacement. She will continue with antibiotic prophylaxis. Will repeat her echo as her valve is 15 years old. (2) Thoracic aortic aneurysm (TAA): Status: Resolved Plan: She does have a dilated aortic root. She had a reduction ascending aortoplasty performed when she had her bovine pericardial valve placed. We would not make any changes at this time. 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 Joseph Lyman MD ~ [facility] [employer] Work Phone: Evaluation note 08-25-2009 Note Date & Type Note Facility 08-25-2009 Evaluation note Diagnosis Onset Date H/O aortic valve replacement August 25, 2009 resolved Thoracic aortic aneurysm (TAA) resolved [facility] Work Phone: Evaluation note 08-25-2009 Note Date & Type Note Facility 08-25-2009 Evaluation note Diagnosis Onset Date Resolution H/O aortic valve replacement August 25, 2009 resolved January 29, 2025 10:34am Thoracic aortic aneurysm (TAA) resolved January 29, 2025 10:34am 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 Reason for Visit H/O aortic valve rep lacement Thoracic aortic aneurysm (TAA) Chief Complaint Amaurosis fugax Chief Complaint Amaurosis fugax SCREENING Chief Complaint Admit Date E ORDER January 29, 2025 10:1 6am 1 Y FU January 29, 2025 10:3 4am Reason for Visit Admit Date H/O aortic valve replacement January 29, 2025 10:34am Thoracic aortic aneurysm (TAA) January 10:34am Family History Relationship Condition Age at Onset Recorded Date/T ebony mother Diabetes mellitus Unknown Coronary artery disease Unknown brother History of deep venous thrombosis Unknown Advance Directives Advance Directive Response Recorded Date/ Time Advance Directives Yes July 23, 2018 10:10am Living Will Yes July 23 9 10:10am Power of Tool Tender Yes July 23 10:10am Advance Directive Response Recorded Date/ Time Living Will Yes July 23 9 10:10am Do you have a Healthcare Power of Tool Tender? Yes July 23, 2018 10:10am Advance Directives Yes July 23, 2018 10:10am Summary Purpose Additional Source Comments Goals (unrecognized section and content) Goals may be documented in a n alternate sectionGoals may be documented in an alternate sectionGoals may be documented in an alternate sectionGoals may be documented in an alternate sectionGoals may be documented in an alternate sectionGoals may be documented in an alternate section Care Teams (unrecognized sec tion and content) Team Status: Active Member Role Status Dates Dr. Ilda Alvarez MD Family Provider Active Dr. Ilda Alvarez MD Primary Care Provider Active Team Status: Active Member Role Status Dates Dr. Ilda Alvarez MD Primary Care Provider Active Dr. Brendan Rodriguez MD Attending Provider, Referring Desiree burton Active Team Status: Inactive Member Role Status Dates Dr. Ilda Alvarez MD Primary Care Prov ider, Attending Provider, Referring Provider Active Team Status: Active Member Role Status Dates Dr. Ilda Alvarez MD Primary Care Provider Active Dr. Severino Montes MD Attending Provider Active Team Status: Inactive Member Role Status Dates Dr. Ilda Alvarez MD Primary Care Provider Active Dr. Brendan Rodriguez MD Attending Provider, Referring Desiree burton Active Team Status: Active Member Role Status Dates Dr. Ilda Alvarez MD Primary Care Provider Active Dr. Severino Montes MD Attending Provider Active Dr. Brendan Rodriguez MD Referring Provider Active Team Status: Active Member Role/Relationship Status Dates Joseph Lyman MD Primary Care Provider Active Team Status: Active Member Role/Relationship Status Dates Joseph Lyman MD Primary Care Provider Active St art: January 29, 2025 Joseph Lyman MD Attending Provider Active Start : January 29, 2025 Joseph Lyman MD Referring Provider Active Start : January 29, 2025 Team Status: Inactive Member Role/Relationship Status Dates Dr. Ilda Alvarez MD Referring Provider Active Start: January 29, 2025 End: January 29, 2025 Marquita GAN, PA Attending Provider Active Start: January 29, 2025 End: January 29, 2025 Joseph Lyman MD Primary Care Provider Active St art: January 29, 2025 End: January 29, 2025 INFORMATION SOURCE (unrecogn ized section and content) DATE CREATED AUTHOR 01/25/2025 [facility] FOR RECORDS PERTAINING TO PATIENTS WHO ARE OR HAVE BEEN ENROLLED IN A CHEMICAL DEPENDENCY/SUBSTANCEABUSE PROGRAM, SOME INFORMATION MAY BE OMITTED. This clinical summary was aggregated from multiple sources. Caution should be exercised in using it in the provision of clinical care. This summary normalizes information from multiple sources, and as a consequence, information in this document may materially change the coding, format and clinical context of patient data. In addition, data may be omitted in some cases. CLINICAL DECISIONS SHOULD BE BASED ON THE PRIMARY CLINICAL RECORDS. [facility] [employer] provides no warranty or guarantee of the accuracy or completeness of information in this document.
--- OUTSIDE RECORDS SUMMARY | 2025-01-29 20:57 | XMS RPT_ITS | CCD ---
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 Ilda Alvarez Primary Care Provider Dr. Ilda Alvarez Referring Provider ELVIA Brambila Attending Provider Dr. Ilda Alvarez [...] Attending Provider Joseph Lyman MD Referring Provider [phone] Dr. Ilda Alvarez MD Referring Provider Marquita Brambila Attending Provider Allergies Allergy Classification Reported Allergen(s) Allergy Type Date of Onset Reaction(s) Facility (7 sources) Adhesive Tape; Translations: [adhesive tape] Propensity to adverse reactions 1 blisters [facility] (2 sources) tomatoes Allergy to substance 9 Hives [facility] Work Phone: (4 sources) tomato allergenic extract Drug Allergy 2 [facility] Comment on above: RAW TOMATOES ONLY (1 source) tomato allergenic extract Drug Allergy 4 [facility] Repository Medications Current Medications Medication Drug [...] Start: 06-20-2017 take 1 capsule by mo [facility] once daily Vitamin B Complex Active 1 [...] 22, 2017 1:00am November 03, 2020 2:33pm Calion-3 Fatty Acids-Fish Oil (Fish Oil) 300-500 mg capsule (1 source) Start: 02-02-2023 End: 01-29-2025 Calion-3 Fatty Acids-Fish Oil (Fish Oil) 300-500 mg [...] Auto (Unsp spec) [#/Vol] 1.48 10*3/uL 0.83-4.51 [facility] Absolute neutrophil countOrd ered By: Joseph Lyman on 01-29-2025 Neutrophils (Bld) [#/Vol] 2.2 10*3/uL 2.0-7.7 [facility] Automated lymphocyte count a s percentage of total leukocytesOrdered By: Joseph Lyman on 01-29-2025 Lymphocytes/100 WBC Auto (Unsp spec) 32.6 % 19-41 [facility] Basophil percentageOrdered B y: Joseph Lyman on 01-29-2025 Basophils/100 WBC (Bld) 0.9 % 0-1 [facility] Eosinophil percentageOrdered By: Joseph Kellerke on 01-29-2025 Eosinophils/100 WBC (Bld) 2.4 % 0-5 [facility] Erythrocyte distribution wid th ratioOrdered By: Joseph Kellerke on 01-29-2025 Erythrocyte distribution width (RBC) [Ratio] 14.5 % 11.6-14.6 [facility] Erythrocyte distribution wid th standard deviationOrdered By: Joseph Kellerke on 01-29-2025 Erythrocyte distribution width (RBC) [Ratio] 49.0 fl High 35.1-43.9 [facility] Hematocrit Auto (Bld) [Volum e fraction]Ordered By: Joseph Kellerke on 01-29-2025 Hematocrit (Bld) [Volume fraction] 40.4 % 37-47 [facility] Hemoglobin measurementOrdere d By: Scottydiya Kellerke on 01-29-2025 Hemoglobin (Bld) [Mass/Vol] 13.0 g/dL 12.0-15.0 [facility] Immature granulocytes/100 WB C Auto (Bld)Ordered By: Joseph Kellerke on 01-29-2025 Immature granulocytes/100 WBC (Bld) 0.200 % 0.0-0.9 [facility] Comment on above: IG% - Immature Granu locytes (promyelocytes, myelocytes and metamyelocytes) > 1% indicates that a LEFT SHIFT is Present. MCV (mean corpuscular volume ) determinationOrdered By: Joseph Kellerke on 01-29-2025 MCV (RBC) [Entitic vol] 92.7 fL 81-99 [facility] Mean corpuscular hemoglobin (MCH) determinationOrdered By: Joseph Kellerke on 01-29-2025 MCH (RBC) [Entitic mass] 29.8 pg 27.0-32.0 [facility] Mean corpuscular hemoglobin concentration (MCHC) determinationOrdered By: Joseph Esmer on 01-29-2025 MCHC (RBC) [Mass/Vol] 32.2 g/dL 32-36 [facility] Mean platelet volume determi nationOrdered By: Joseph Lyman on 01-29-2025 Platelet mean volume (Bld) [Entitic vol] 11.0 fL 6.2-12.0 [facility] Monocyte percentageOrdered B y: Joseph Lyman on 01-29-2025 Monocytes/100 WBC (Bld) 14.5 % High 0-10 [facility] Neutrophil percentageOrdered By: Joseph Lyman on 01-29-2025 Neutrophils/100 WBC (Bld) 49.4 % 47-70 [facility] Nucleated red blood cell per centageOrdered By: Joseph Lyman on 01-29-2025 Nucleated RBC/100 WBC (Bld) [Ratio] 0 % 0-5 [facility] Platelet countOrdered By: Anand velezon Esmer on 01-29-2025 Platelets (Bld) [#/Vol] 162 10*3/uL 150-450 [facility] RBC Auto (Bld) [#/Vol]Ordere d By: Joseph Lyman on 01-29-2025 RBC (Bld) [#/Vol] 4.36 10*6/uL 4.2-5.4 [facility] White blood cell (WBC) count Ordered By: Joseph Lyman on 01-29-2025 WBC (Bld) [#/Vol] 4.5 10*3/uL 4.4-11.0 [facility] Echo Completeon 02-20-2024 Echo [facility] [address] [place] [address] Echo Complete 02/20/24 1310 MR#: [id number] Acct: [id number] Name: VENECIA KAUR Rep #: [id number] : 1950 74 From: Martin Perea MD [...] Date Dictated: 02/20/24 1310 Date Transcribed: 02/20/241548 Logistics Intern: Signed Normal [facility] Cardiology Visit Reporton Cardiology Visit Report [facility] [address] [place] [address] OFFICE VISIT Date of Service: 01/30/24 MR#: [id number] Acct: [id number] Name: VENECIA KAUR Rep #: [id number] : 1950 Provider: ELVIA Cuevas Age/Sex: 74/F Location: 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 Normal [facility] Basophil percentageOrdered B y: Dr. Alvarez on 10-18-2022 Chloride [Moles/Vol] 105 mmol/L 98-107 [facility] Cholesterol [Mass/Vol] 231 mg/dL <200 [facility] Comment on above: <200 mg/dL Desirable 200-240 mg/dL Borderline >240 mg/dL High Risk Glucose [Mass/Vol] 86 mg/dL 74-106 [facility] Potassium [Moles/Vol] 4.0 mmol/L 3.5-5.1 [facility] Sodium [Moles/Vol] 139 mmol/L 136-145 [facility] Triglyceride [Mass/Vol] 167 mg/dL <199 [facility] Comment on above: The drugs N-Acetylcy steine and Metamizole may falsely depress this assay.Serum Triglycerides Reference Interval Normal <150 mg/dL Borderline high 150 - 199 mg/dL High 200 - 499 mg/dL Very High > or = 500 mg/dL Laboratory - Chemistry and C hemistry - challengeOrdered By: Dr. Alvarez on 10-18-2022 CO2 [Moles/Vol] 27.0 mmol/L 21.0-32.0 [facility] Urea nitrogen/Creatinine [Mass ratio] 31.8 mg/mg 10-20 [facility] No Panel InformationOrdered By: Dr. Alvarez on 10-18-2022 Estimated GFR (MDRD) Amer 77 mL/min >60 [facility] Comment on above: GFR Calc Estimated GFR (MDRD) Non-Af Amer 64 mL/min >60 [facility] Comment on above: Non- GFR Calc Thyroid Stimulating Hormone (TSH) 2.50 uIU/mL 0.358-3.74 [facility] Serum or plasma calcium bryson urement (mass/volume)Ordered By: Dr. Alvarez on 10-18-2022 Calcium [Mass/Vol] 10.0 mg/dL 8.5-10.1 [facility] Serum or plasma cholesterol in HDL measurement (mass/volume)Ordered By: Dr. Alvarez on 10-18-2022 Cholesterol in HDL [Mass/Vol] 52 mg/dL >40 [facility] Comment on above: The drugs N-Acetylcy steine and Metamizole may falsely depress this assay. Reference Range HDL <40 mg/dL Low HDL Cholesterol HDL >or= 60 mg/dL High HDL Cholesterol Serum or plasma cholesterol in VLDL measurement (mass/volume)Ordered By: Dr. Alvarez on 10-18-2022 Cholesterol in VLDL [Mass/Vol] 33 mg/dL 5-40 [facility] Serum or plasma creatinine m easurement (mass/volume)Ordered By: Dr. Alvarez on 10-18-2022 Creatinine [Mass/Vol] 0.91 mg/dL 0.55-1.02 [facility] Comment on above: The validity of the calculated GFR & GFRAA in patients over 70 years has not been determined. Clinical correlation is essential. Serum or plasma low density lipoprotein (LDL) cholesterol measurement (mass/volume)Ordered By: Dr. Alvarez on 10-18-2022 Cholesterol in LDL [Mass/Vol] 146 mg/dL 0-130 [facility] Serum or plasma urea nitroge n measurement (mass/volume)Ordered By: Dr. Alvarez on 10-18-2022 Urea nitrogen [Mass/Vol] 29 mg/dL 7-18 [facility] Thin prep Papanicolaou smear with manual screeningOrdered By: Dr. Alvarez on 10-18-2022 Thin prep Papanicolaou smear with manual screening 7 5-15 [facility] Whole blood hemoglobin A1c/t otal hemoglobin ratio (mass fraction)Ordered By: Dr. Alvarez on 10-18-2022 HbA1c (Bld) [Mass fraction] 5.1 % 3.8-5.6 [facility] Comment on above: Normal < 5.7 % Predi abetic 5.7 - 6.4 % Diabetic >or= 6.5 % Please note range changes. Vital Signs Date Time Vital Sign Value Performing Clinician Danilo ramirez 01-29-2025 11:18-0400 Body height 149.86 cm Joseph Lyman MD Work Phone: [facility] 01-29-2025 11:18-0400 Body mass index (BMI) [Ratio] 27.8 kg/m2 Joseph Lyman MD Work Phone: [facility] 01-29-2025 11:18-0400 Body weight 62.59 kg Joseph Lyman MD Work Phone: [facility] 01-29-2025 11:18-0400 Diastolic blood pressure 84 mm[Hg] Joseph Lyman MD Work Phone: [facility] 01-29-2025 11:18-0400 Heart rate 62 /min Joseph Lyman MD Work Phone: [facility] 01-29-2025 11:18-0400 Respiratory rate 16 /min Joseph Lyman MD Work Phone: [facility] 01-29-2025 11:18-0400 Systolic blood pressure 132 mm[Hg] Joseph Lyman MD Work Phone: [facility] 01-10-2022 14:51-0400 Body height 149.[address] Ilda Alvarez Work Phone: [facility] Work Phone: 01-10-2022 14:51-0400 Body mass index (BMI) [Ratio] 27.2 kg/m2 Dr. Ilda Alvarez Work Phone: [facility] Work Phone: 01-10-2022 14:51-0400 Body weight 61.[address] Ilda Alvarez Work Phone: [facility] Work Phone: 01-10-2022 14:51-0400 Diastolic blood pressure 82 mm[Hg] Dr. Ilda Alvarez Work Phone: [facility] Work Phone: 01-10-2022 14:51-0400 Heart rate 80 /min Dr. Ilda Alvarez Work Phone: [facility] Work Phone: 01-10-2022 14:51-0400 Respiratory rate 18 /min Dr. Ilda Alvarez Work Phone: [facility] Work Phone: 01-10-2022 14:51-0400 SaO2% (BldA) [Mass fraction] 97 % Dr. Ilda Alvarez Work Phone: [facility] Work Phone: 01-10-2022 14:51-0400 Systolic blood pressure 123 mm[Hg] Dr. Ilda Alvarez Work Phone: [facility] Work Phone: Encounters Encounter Date Encounter Type Care Provider Facility Start: 01-29-2025 ambulatory Joseph Lyman Facility:[facility] Start: 01-29-2025 End: 01-29-2025 ambulatory Joseph Lyman MD Work Phone: -[facility] Start: 01-29-2025 End: 01-29-2025 Patient encounter procedure Marquita GAN -[facility] Work Phone: Start: 02-20-2024 ambulatory Martin Perea Facility:[facility] Start: 02-20-2024 End: 02-20-2024 ambulatory Marquita GAN Facility:[facility] Start: 01-30-2024 End: 01-30-2024 ambulatory Marquita GAN Facility:[facility] Start: 12-26-2022 End: 12-26-[address] Ilda Alvarez Work Phone: [facility] Work Phone: Start: 12-26-2022 End: 12-26-[address] Ilda Alvarez Work Phone: [facility]-Outpatient Breast Imaging Start: 10-25-2022 Non-patient / Non-visit Dr. Robin Alvarez Work Phone: [facility] Start: 10-25-2022 End: 10-25-[address] Ilda Alvarez Work Phone: [facility] Work Phone: Start: 10-25-2022 End: 10-25-2022 Patient encounter procedure [facility]-Cardiovascula r Services Start: 10-18-2022 End: 10-18-2022 ambulatory [facility] Work Phone: Start: 10-18-2022 End: 10-18-2022 Patient encounter procedure [facility] Start: 01-10-2022 End: 01-10-[address] Ilda Alvarez Work Phone: [facility] Start: 12-21-2021 End: 12-21-2021 Patient encounter procedure [facility]-Outpatient Breast Imaging Start: 09-21-2021 Registered [facility]-Physical Therapy Procedures Date Procedure Procedure Detail Performing Clinician Start: 12-26-2022 Screening mammography Rolando Alvarez Work Phone: Start: 12-21-2021 Screening mammography Plan of Treatment Date Care Activity Detail Author Start: 01-29-2025 Vitamin D, 25-hydroxy measurement [facility] Alanine aminotransfe rase [Enzymatic activity/volume] in Serum or Plasma [facility] Albumin [Mass/volume ] in Serum or Plasma [facility] Alkaline phosphatase [Enzymatic activity/volume] in Serum or Plasma [facility] Anion gap in Serum or Plasma [facility] Bilirubin, total measurement [facility] BUN/Creatinine ratio [facility] Calcium [Mass/volume ] in Serum or Plasma [facility] Carbon dioxide, tota l [Moles/volume] in Central venous blood [facility] Cholesterol [Mass/vo lume] in Serum or Plasma [facility] Cholesterol in HDL [ Mass/volume] in Serum or Plasma [facility] Creatinine [Mass/vol ume] in Serum or Plasma [facility] Glucose [Mass/volume ] in Serum or Plasma [facility] Low density lipoprot ein cholesterol measurement [facility] Measurement of renal function [facility] Potassium measurement [facility] Serum chloride measurement [facility] Sodium measurement [facility] Total cholesterol:HD L ratio measurement [facility] Total protein measurement [facility] Triglycerides measurement [facility] Urea nitrogen [Mass/ volume] in Serum or Plasma [facility] VLDL cholesterol measurement [facility] Immunizations Immunization Date Immunization Notes Care Provider Fa cility 10-13-2020 Covid (Pfizer) [facility] 09-22-2020 Covid (Pfizer) [facility] Payers Date Payer Category Payer Self-pay [id number] 2014 Unknown [id number] Medicare [id number] Unknown [id number] [id number] Unknown [id number] [id number] [id number] Unknown [id number] [id number] [id number] Unknown [id number] [id number] Social History Date Type Detail Facility Start: 11-03-2020 End: 01-10-2022 Tobacco smoking status NHIS Unknown if ever smoked [facility] Start: 1950 Sex Assigned At Female [facility] Start: 02-02-2023 Tobacco smoking stat us NHIS Never smoked tobacco (finding) [facility] Progress note 01-29-2025 Note Date & Type Note Facility 01-29-2025 Progress note [facility] Progress note 01-29-2025 Note Date & Type Note Facility 01-29-2025 Progress note Note Date/Time January 29, 2025 11:43am [facility] [address] [place] [address] OFFICE VISIT Date of Service: 01/29/25 MR#: [id number] Acct: [id number] Name: VENECIA KAUR Rep #: [id number] : 1950 Provider: ELVIA Staton Age/Sex: 75/F Location: 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 Joseph Lyman MD ~ [facility] [employer] Work Phone: Evaluation note 08-25-2009 Note Date & Type Note Facility 08-25-2009 Evaluation note Diagnosis Onset Date H/O aortic valve replacement August 25, 2009 resolved Thoracic aortic aneurysm (TAA) resolved [facility] Work Phone: Evaluation note 08-25-2009 Note Date & Type Note Facility 08-25-2009 Evaluation note Diagnosis Onset Date Resolution H/O aortic valve replacement August 25, 2009 resolved January 29, 2025 10:34am Thoracic aortic aneurysm (TAA) resolved January 29, 2025 10:34am [facility] Work Phone: Evaluation note Note Date & Type Note Facility Evaluation note No assessment information availa ble 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 Yes July 23, 2018 10:10am Advance Directives [...] section and content) DATE CREATED AUTHOR 01/25/2025 [facility] FOR RECORDS PERTAINING TO PATIENTS WHO ARE [...] BE BASED ON THE PRIMARY CLINICAL RECORDS. [facility] [employer] provides no warranty or guarantee of the accuracy or completeness of information in this document.
== END | disposition home or self-care (01) ==
LOC: LAB 10:19
PROVIDERS: PCP Family Medicine; Referring Provider Family Medicine; Visit Provider Family Medicine
DX: Z00.00 Encounter for general adult medical examination without abnormal findings (principal); E78.5 Hyperlipidemia, unspecified
CPT/HCPCS: 80053; 80061; 82306; 85025

== ENCOUNTER → 2025-01-29 | Outpatient (CLI) | payer MEDICARE, SELFPAY ==
--- NOTE | 2025-01-29 12:35 | BI_ITS ---
EXAM: SCRN MAMM (CAD)W/LAUR[facility] BILAT DATE: 01/29/2025 CLINICAL HISTORY: F, Age 75 y/o , ANNUAL SCREENING TECHNIQUE: SCRN MAMM (CAD)W/LA[facility] BILAT COMPARISON: Prior exam(s) dated 01/10/2024, 12/26/2022, 01/03/2022. FINDINGS: TISSUE DENSITY: The breasts are heterogeneously dense, which may obscure small masses. The mammogram demonstrates that the patient has dense breasts. Supplemental screening with whole breast ultrasound or MRI may be considered for further evaluation. Bilateral Breast Mammographic Findings: There is an asymmetry with associated architectural distortion in the superior left breast at posterior depth visualized on the MLO view. No significant masses, calcifications or other abnormalities are identified in the right breast. BI/SCRN MAMM (CAD)W/[facility] BILAT IMPRESSION: The asymmetry with associated architectural distortion in the superior left calixto ast requires further evaluation. Recommend diagnostic mammogram of the left breast and ultrasound on the day of diagnostic if indicated. OVERALL FINAL ASSESSMENT BI-RADS 0: INCOMPLETE - NEED ADDITIONAL IMAGING EVALUATION. RECOMMENDATION: Additional Views obtained/call backs A letter with findings and recommendations will be mailed to the patient. Reading Location: [id number]
--- NOTE | 2025-01-29 12:35 | BI_ITS ---
EXAM: SCRN MAMM (CAD)W/[facility] BILAT DATE: 01/29/2025 CLINICAL HISTORY: F, Age 75 y/o , ANNUAL SCREENING TECHNIQUE: SCRN MAMM (CAD)W/[facility] BILAT COMPARISON: Prior exam(s) dated 01/10/2024, 12/26/2022, 01/03/2022. FINDINGS: TISSUE DENSITY: The breasts are heterogeneously dense, which may obscure small masses. The mammogram demonstrates that the patient has dense breasts. Supplemental screening with whole breast ultrasound or MRI may be considered for further evaluation. Bilateral Breast Mammographic Findings: There is an asymmetry with associated architectural distortion in the superior left breast at posterior depth visualized on the MLO view. No significant masses, calcifications or other abnormalities are identified in the right breast. BI/SCRN MAMM (CAD)W/[facility] BILAT IMPRESSION: The asymmetry with associated architectural distortion in the superior left calixto ast requires further evaluation. Recommend diagnostic mammogram of the left breast and ultrasound on the day of diagnostic if indicated. OVERALL FINAL ASSESSMENT BI-RADS 0: INCOMPLETE - NEED ADDITIONAL IMAGING EVALUATION. RECOMMENDATION: Additional Views obtained/call backs A letter with findings and recommendations will be mailed to the patient. Reading Location: [id number]
--- OUTSIDE RECORDS SUMMARY | 2025-01-29 22:41 | XMS RPT_ITS | CCD ---
Author Organization [facility] Care Team Providers Care Grounds Manager Name Role Phone Dr. Ilda Alvarez Primary Care Provider Dr. Ilda Alvarez Referring Provider ELVIA Brambila Attending Provider Dr. Ilda Alvarez Primary Care Provider Dr. Severino Montes Attending Provider Dr. Brendan Rodriguez Referring Provider [phone] Marquita Brambila Attending Unavail able Jolliff, Ilda [...] tape] Propensity to adverse reactions 1 blisters [facility] (2 sources) tomatoes Allergy to substance 9 Hives [facility] Work Phone: (4 sources) tomato allergenic extract Drug Allergy 2 [facility] Comment on above: RAW TOMATOES ONLY (1 source) tomato allergenic extract Drug Allergy 4 [facility] Repository Medications Current Medications Medication Drug Class(es) [...] Start: 06-20-2017 take 1 capsule by mo [facility] once daily Vitamin B Complex Active 1 [...] 22, 2017 1:00am November 03, 2020 2:33pm [place]-3 Fatty Acids-Fish Oil (Fish Oil) 300-500 mg capsule (1 source) Start: 02-02-2023 End: 01-29-2025 [place]-3 Fatty Acids-Fish Oil (Fish Oil) 300-500 mg [...] Auto (Unsp spec) [#/Vol] 1.48 10*3/uL 0.83-4.51 [facility] Absolute neutrophil countOrd ered By: Joseph Lyman on 01-29-2025 Neutrophils (Bld) [#/Vol] 2.2 10*3/uL 2.0-7.7 [facility] Automated lymphocyte count a s percentage of total leukocytesOrdered By: Joseph Lyman on 01-29-2025 Lymphocytes/100 WBC Auto (Unsp spec) 32.6 % 19-41 [facility] Basophil percentageOrdered B y: Joseph Lyman on 01-29-2025 Basophils/100 WBC (Bld) 0.9 % 0-1 [facility] Eosinophil percentageOrdered By: Joseph Kellerke on 01-29-2025 Eosinophils/100 WBC (Bld) 2.4 % 0-5 [facility] Erythrocyte distribution wid th ratioOrdered By: Joseph Kellerke on 01-29-2025 Erythrocyte distribution width (RBC) [Ratio] 14.5 % 11.6-14.6 [facility] Erythrocyte distribution wid th standard deviationOrdered By: Joseph Kellerke on 01-29-2025 Erythrocyte distribution width (RBC) [Ratio] 49.0 fl High 35.1-43.9 [facility] Hematocrit Auto (Bld) [Volum e fraction]Ordered By: Joseph Kellerke on 01-29-2025 Hematocrit (Bld) [Volume fraction] 40.4 % 37-47 [facility] Hemoglobin measurementOrdere d By: Scottydiya Kellerke on 01-29-2025 Hemoglobin (Bld) [Mass/Vol] 13.0 g/dL 12.0-15.0 [facility] Immature granulocytes/100 WB C Auto (Bld)Ordered By: Joseph Kellerke on 01-29-2025 Immature granulocytes/100 WBC (Bld) 0.200 % 0.0-0.9 [facility] Comment on above: IG% - Immature Granu locytes (promyelocytes, myelocytes and metamyelocytes) > 1% indicates that a LEFT SHIFT is Present. MCV (mean corpuscular volume ) determinationOrdered By: Joseph Kellerke on 01-29-2025 MCV (RBC) [Entitic vol] 92.7 fL 81-99 [facility] Mean corpuscular hemoglobin (MCH) determinationOrdered By: Joseph Kellerke on 01-29-2025 MCH (RBC) [Entitic mass] 29.8 pg 27.0-32.0 [facility] Mean corpuscular hemoglobin concentration (MCHC) determinationOrdered By: Joseph Esmer on 01-29-2025 MCHC (RBC) [Mass/Vol] 32.2 g/dL 32-36 [facility] Mean platelet volume determi nationOrdered By: Joseph Lyman on 01-29-2025 Platelet mean volume (Bld) [Entitic vol] 11.0 fL 6.2-12.0 [facility] Monocyte percentageOrdered B y: Joseph Lyman on 01-29-2025 Monocytes/100 WBC (Bld) 14.5 % High 0-10 [facility] Neutrophil percentageOrdered By: Joseph Lyman on 01-29-2025 Neutrophils/100 WBC (Bld) 49.4 % 47-70 [facility] Nucleated red blood cell per centageOrdered By: Joseph Lyman on 01-29-2025 Nucleated RBC/100 WBC (Bld) [Ratio] 0 % 0-5 [facility] Platelet countOrdered By: Anand velezon Esmer on 01-29-2025 Platelets (Bld) [#/Vol] 162 10*3/uL 150-450 [facility] RBC Auto (Bld) [#/Vol]Ordere d By: Joseph Lyman on 01-29-2025 RBC (Bld) [#/Vol] 4.36 10*6/uL 4.2-5.4 [facility] White blood cell (WBC) count Ordered By: Joseph Lyman on 01-29-2025 WBC (Bld) [#/Vol] 4.5 10*3/uL 4.4-11.0 [facility] Echo Completeon 02-20-[address] [facility] [address] [place] [address] Echo Complete 02/20/24 1310 MR#: [id number] Acct: [id number] Name: VENECIA KAUR Rep #: [id number] : 1950 74 From: Martin Perea MD [...] Date Dictated: 02/20/24 1310 Date Transcribed: 02/20/241548 Line Out Man: Signed Normal [facility] Cardiology Visit Reporton Cardiology Visit Report [facility] [address] [place] [address] OFFICE VISIT Date of Service: 01/30/24 MR#: [id number] Acct: [id number] Name: VENECIA KAUR Rep #: [id number] : 1950 Provider: ELVIA Cuevas Age/Sex: 74/F Location: [facility] Status: Signed HPI HPI History of [...] 95 Intake Visit Reasons: 1 Y FU Pre Billing Clinician Required: No Is patient in pain?: No [...] normal to (more content not included)... Normal [facility] Basophil percentageOrdered B y: Dr. Alvarez on 10-18-2022 Chloride [Moles/Vol] 105 mmol/L 98-107 [facility] Cholesterol [Mass/Vol] 231 mg/dL <200 [facility] Comment on above: <200 mg/dL Desirable 200-240 mg/dL Borderline >240 mg/dL High Risk Glucose [Mass/Vol] 86 mg/dL 74-106 [facility] Potassium [Moles/Vol] 4.0 mmol/L 3.5-5.1 [facility] Sodium [Moles/Vol] 139 mmol/L 136-145 [facility] Triglyceride [Mass/Vol] 167 mg/dL <199 [facility] Comment on above: The drugs N-Acetylcy steine and Metamizole may falsely depress this assay.Serum Triglycerides Reference Interval Normal <150 mg/dL Borderline high 150 - 199 mg/dL High 200 - 499 mg/dL Very High > or = 500 mg/dL Laboratory - Chemistry and C hemistry - challengeOrdered By: Dr. Alvarez on 10-18-2022 CO2 [Moles/Vol] 27.0 mmol/L 21.0-32.0 [facility] Urea nitrogen/Creatinine [Mass ratio] 31.8 mg/mg 10-20 [facility] No Panel InformationOrdered By: Dr. Alvarez on 10-18-2022 Estimated GFR (MDRD) Amer 77 mL/min >60 [facility] Comment on above: GFR Calc Estimated GFR (MDRD) Non-Af Amer 64 mL/min >60 [facility] Comment on above: Non- GFR Calc Thyroid Stimulating Hormone (TSH) 2.50 uIU/mL 0.358-3.74 [facility] Serum or plasma calcium bryson urement (mass/volume)Ordered By: Dr. Alvarez on 10-18-2022 Calcium [Mass/Vol] 10.0 mg/dL 8.5-10.1 [facility] Serum or plasma cholesterol in HDL measurement (mass/volume)Ordered By: Dr. Alvarez on 10-18-2022 Cholesterol in HDL [Mass/Vol] 52 mg/dL >40 [facility] Comment on above: The drugs N-Acetylcy steine and Metamizole may falsely depress this assay. Reference Range HDL <40 mg/dL Low HDL Cholesterol HDL >or= 60 mg/dL High HDL Cholesterol Serum or plasma cholesterol in VLDL measurement (mass/volume)Ordered By: Dr. Alvarez on 10-18-2022 Cholesterol in VLDL [Mass/Vol] 33 mg/dL 5-40 [facility] Serum or plasma creatinine m easurement (mass/volume)Ordered By: Dr. Alvarez on 10-18-2022 Creatinine [Mass/Vol] 0.91 mg/dL 0.55-1.02 [facility] Comment on above: The validity of the calculated GFR & GFRAA in patients over 70 years has not been determined. Clinical correlation is essential. Serum or plasma low density lipoprotein (LDL) cholesterol measurement (mass/volume)Ordered By: Dr. Alvarez on 10-18-2022 Cholesterol in LDL [Mass/Vol] 146 mg/dL 0-130 [facility] Serum or plasma urea nitroge n measurement (mass/volume)Ordered By: Dr. Alvarez on 10-18-2022 Urea nitrogen [Mass/Vol] 29 mg/dL 7-18 [facility] Thin prep Papanicolaou smear with manual screeningOrdered By: Dr. Alvarez on 10-18-2022 Thin prep Papanicolaou smear with manual screening 7 5-15 [facility] Whole blood hemoglobin A1c/t otal hemoglobin ratio (mass fraction)Ordered By: Dr. Alvarez on 10-18-2022 HbA1c (Bld) [Mass fraction] 5.1 % 3.8-5.6 [facility] Comment on above: Normal < 5.7 % Predi abetic 5.7 - 6.4 % Diabetic >or= 6.5 % Please note range changes. Vital Signs Date Time Vital Sign Value Performing Clinician Danilo ramirez 01-29-2025 11:18-0400 Body height 149.86 cm Joseph Lyman MD Work Phone: [facility] 01-29-2025 11:18-0400 Body mass index (BMI) [Ratio] 27.8 kg/m2 Joseph Lyman MD Work Phone: [facility] 01-29-2025 11:18-0400 Body weight 62.59 kg Joseph Lyman MD Work Phone: [facility] 01-29-2025 11:18-0400 Diastolic blood pressure 84 mm[Hg] Joseph Lyman MD Work Phone: [facility] 01-29-2025 11:18-0400 Heart rate 62 /min Joseph Lyman MD Work Phone: [facility] 01-29-2025 11:18-0400 Respiratory rate 16 /min Joseph Lyman MD Work Phone: [facility] 01-29-2025 11:18-0400 Systolic blood pressure 132 mm[Hg] Joseph Lyman MD Work Phone: [facility] 01-10-2022 14:51-0400 Body height 149.[address] Ilda Alvarez Work Phone: [facility] Work Phone: 01-10-2022 14:51-0400 Body mass index (BMI) [Ratio] 27.2 kg/m2 Dr. Ilda Alvarez Work Phone: [facility] Work Phone: 01-10-2022 14:51-0400 Body weight 61.[address] Ilda Alvarez Work Phone: [facility] Work Phone: 01-10-2022 14:51-0400 Diastolic blood pressure 82 mm[Hg] Dr. Ilda Alvarez Work Phone: [facility] Work Phone: 01-10-2022 14:51-0400 Heart rate 80 /min Dr. Ilda Alvarez Work Phone: [facility] Work Phone: 01-10-2022 14:51-0400 Respiratory rate 18 /min Dr. Ilda Alvarez Work Phone: [facility] Work Phone: 01-10-2022 14:51-0400 SaO2% (BldA) [Mass fraction] 97 % Dr. Ilda Alvarez Work Phone: [facility] Work Phone: 01-10-2022 14:51-0400 Systolic blood pressure 123 mm[Hg] Dr. Ilda Alvarez Work Phone: [facility] Work Phone: Encounters Encounter Date Encounter Type Care Provider Facility Start: 01-29-2025 ambulatory Joseph Lyman Facility:[facility] Start: 01-29-2025 End: 01-29-2025 ambulatory Joseph Lyman MD Work Phone: -[facility] Start: 01-29-2025 End: 01-29-2025 Patient encounter procedure Marquita GAN -[facility] Work Phone: Start: 02-20-2024 ambulatory Martin Perea Facility:[facility] Start: 02-20-2024 End: 02-20-2024 ambulatory Marquita GAN Facility:[facility] Start: 01-30-2024 End: 01-30-2024 ambulatory Marquita GAN Facility:[facility] Start: 12-26-2022 End: 12-26-[address] Ilda Alvarez Work Phone: [facility] Work Phone: Start: 12-26-2022 End: 12-26-[address] Ilda Alvarez Work Phone: [facility]-Outpatient Breast Imaging Start: 10-25-2022 Non-patient / Non-visit Dr. Robin Alvarez Work Phone: [facility] Start: 10-25-2022 End: 10-25-[address] Ilda Alvarez Work Phone: [facility] Work Phone: Start: 10-25-2022 End: 10-25-2022 Patient encounter procedure [facility]-Cardiovascula r Services Start: 10-18-2022 End: 10-18-2022 ambulatory [facility] Work Phone: Start: 10-18-2022 End: 10-18-2022 Patient encounter procedure [facility] Start: 01-10-2022 End: 01-10-[address] Ilda Alvarez Work Phone: [facility] Start: 12-21-2021 End: 12-21-2021 Patient encounter procedure [facility]-Outpatient Breast Imaging Start: 09-21-2021 Registered Rec[facility]ring [facility]-Physical Therapy Procedures Date Procedure Procedure Detail Performing Clinician Start: 12-26-2022 Screening mammography Rolando Alvarez Work Phone: Start: 12-21-2021 Screening mammography Plan of Treatment Date Care Activity Detail Author Start: 01-29-2025 Vitamin D, 25-hydroxy measurement [facility] Alanine aminotransfe rase [Enzymatic activity/volume] in Serum or Plasma [facility] Albumin [Mass/volume ] in Serum or Plasma [facility] Alkaline phosphatase [Enzymatic activity/volume] in Serum or Plasma [facility] Anion gap in Serum or Plasma [facility] Bilirubin, total measurement [facility] BUN/Creatinine ratio [facility] Calcium [Mass/volume ] in Serum or Plasma [facility] Carbon dioxide, tota l [Moles/volume] in Central venous blood [facility] Cholesterol [Mass/vo lume] in Serum or Plasma [facility] Cholesterol in HDL [ Mass/volume] in Serum or Plasma [facility] Creatinine [Mass/vol ume] in Serum or Plasma [facility] Glucose [Mass/volume ] in Serum or Plasma [facility] Low density lipoprot ein cholesterol measurement [facility] Measurement of renal function [facility] Potassium measurement [facility] Serum chloride measurement [facility] Sodium measurement [facility] Total cholesterol:HD L ratio measurement [facility] Total protein measurement [facility] Triglycerides measurement [facility] Urea nitrogen [Mass/ volume] in Serum or Plasma [facility] US Heart [facility] VLDL cholesterol measurement [facility] Immunizations Immunization Date Immunization Notes Care Provider Fa cility 10-13-2020 Covid (Pfizer) [facility] 09-22-2020 Covid (Pfizer) [facility] Payers Date Payer Category Payer Self-pay [id number] 2014 Unknown [id number] Medicare [id number] Unknown [id number] Unknown [id number] Unknown [id number] Unknown [id number] Social History Date Type Detail Facility Start: 11-03-2020 End: 01-10-2022 Tobacco smoking status NHIS Unknown if ever smoked [facility] Start: 1950 Sex Assigned At Female [facility] Start: 02-02-2023 Tobacco smoking stat us NHIS Never smoked tobacco (finding) [facility] Progress note 01-29-2025 Note Date & Type Note Facility 01-29-2025 Progress note [facility] Progress note 01-29-2025 Note Date & Type Note Facility 01-29-2025 Progress note Note Date/Time January 29, 2025 11:43am [facility] [address] [place] [address] OFFICE VISIT Date of Service: 01/29/25 MR#: [id number] Acct: [id number] Name: VENECIA KAUR Rep #: [id number] : 1950 Provider: ELVIA Staton Age/Sex: 75/F Location: [facility] Status: Signed HPI HPI History of [...] NIBP Intake Visit Reasons: 1 Y FU Pre Billing Clinician Required: No Is patient in pain?: No [...] valve Plan Details Follow Up: 1 Year (RN [facility]OM[facility] SERVICES) Coding Level of Care Code Off vis,est,level [...] applicable) CC: Dr. Joseph Lyman MD ~ [facility] [employer] Work Phone: Evaluation note 08-25-2009 Note Date & Type Note Facility 08-25-2009 Evaluation note Diagnosis Onset Date H/O aortic valve replacement August 25, 2009 resolved Thoracic aortic aneurysm (TAA) resolved [facility] Work Phone: Evaluation note 08-25-2009 Note Date & Type Note Facility 08-25-2009 Evaluation note Diagnosis Onset Date Resolution H/O aortic valve replacement August 25, 2009 resolved January 29, 2025 10:34am Thoracic aortic aneurysm (TAA) resolved January 29, 2025 10:34am [facility] Work Phone: Evaluation note Note Date & Type Note Facility Evaluation note No assessment information availa ble [facility] Work Phone: Reason for referral (narrative) Note Date & Type Note Facility Reason for referral (narrative) No reason for referral information available [facility] [facility] Work Phone: Chief Complaint and Reason for Visit Chief Complaint R TRAP STRAIN.PT TO BRING RX SCREENING Chief Complaint SCREENING 9 M FU/MOVED FROM 12/03 RN WOMEN SERVICES Reason for Visit H/O aortic valve rep [...] Yes July 23 9 10:10am Power of [employer] Operator Yes July 23 10:10am Advance Directive Response Recorded Date/ Time Living Will Yes July 23 9 10:10am Do you have a Healthcare Power of [employer] Operator? Yes July 23, 2018 10:10am Advance Directives [...] section and content) DATE CREATED AUTHOR 01/25/2025 [facility] FOR RECORDS PERTAINING TO PATIENTS WHO [...] BE BASED ON THE PRIMARY CLINICAL RECORDS. [facility] [employer] provides no warranty or guarantee of the accuracy or completeness of information in this document.
--- OUTSIDE RECORDS SUMMARY | 2025-01-29 22:41 | XMS RPT_ITS | CCD ---
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 Ilda Alvarez [...] Unavailable Jolliff, Ilda S Primary Care Unavailable Josehp Lyman MD Primary Care Provider Joseph Lyman MD Attending Provider Joseph Lyman MD Referring Provider [phone] Dr. Ilda Alvarez MD Referring Provider Marquita Brambila Attending Provider Allergies Allergy Classification Reported Allergen(s) Allergy Type Date of Onset Reaction(s) Facility (7 sources) Adhesive Tape; Translations: [adhesive tape] Propensity to adverse reactions 1 blisters [facility] (2 sources) tomatoes Allergy to substance 9 Hives [facility] Work Phone: (4 sources) tomato allergenic extract Drug Allergy 2 [facility] Comment on above: RAW TOMATOES ONLY (1 source) tomato allergenic extract Drug Allergy 4 [facility] Repository Medications Current Medications Medication [...] Start: 06-20-2017 take 1 capsule by mo [facility] once daily Vitamin B Complex Active [...] 22, 2017 1:00am November 03, 2020 2:33pm [place]-3 Fatty Acids-Fish Oil (Fish Oil) 300-500 mg capsule (1 source) Start: 02-02-2023 End: 01-29-2025 [place]-3 Fatty Acids-Fish Oil (Fish Oil) 300-500 mg [...] Auto (Unsp spec) [#/Vol] 1.48 10*3/uL 0.83-4.51 [facility] Absolute neutrophil countOrd ered By: Joseph Lyman on 01-29-2025 Neutrophils (Bld) [#/Vol] 2.2 10*3/uL 2.0-7.7 [facility] Automated lymphocyte count a s percentage of total leukocytesOrdered By: Joseph Lyman on 01-29-2025 Lymphocytes/100 WBC Auto (Unsp spec) 32.6 % 19-41 [facility] Basophil percentageOrdered B y: Joseph Lyman on 01-29-2025 Basophils/100 WBC (Bld) 0.9 % 0-1 [facility] Eosinophil percentageOrdered By: Joseph Kellerke on 01-29-2025 Eosinophils/100 WBC (Bld) 2.4 % 0-5 [facility] Erythrocyte distribution wid th ratioOrdered By: Joseph Kellerke on 01-29-2025 Erythrocyte distribution width (RBC) [Ratio] 14.5 % 11.6-14.6 [facility] Erythrocyte distribution wid th standard deviationOrdered By: Joseph Kellerke on 01-29-2025 Erythrocyte distribution width (RBC) [Ratio] 49.0 fl High 35.1-43.9 [facility] Hematocrit Auto (Bld) [Volum e fraction]Ordered By: Joseph Kellerke on 01-29-2025 Hematocrit (Bld) [Volume fraction] 40.4 % 37-47 [facility] Hemoglobin measurementOrdere d By: Scottydiya Kellerke on 01-29-2025 Hemoglobin (Bld) [Mass/Vol] 13.0 g/dL 12.0-15.0 [facility] Immature granulocytes/100 WB C Auto (Bld)Ordered By: Joseph Kellerke on 01-29-2025 Immature granulocytes/100 WBC (Bld) 0.200 % 0.0-0.9 [facility] Comment on above: IG% - Immature Granu locytes (promyelocytes, myelocytes and metamyelocytes) > 1% indicates that a LEFT SHIFT is Present. MCV (mean corpuscular volume ) determinationOrdered By: Joseph Kellerke on 01-29-2025 MCV (RBC) [Entitic vol] 92.7 fL 81-99 [facility] Mean corpuscular hemoglobin (MCH) determinationOrdered By: Joseph Kellerke on 01-29-2025 MCH (RBC) [Entitic mass] 29.8 pg 27.0-32.0 [facility] Mean corpuscular hemoglobin concentration (MCHC) determinationOrdered By: Joseph Esmer on 01-29-2025 MCHC (RBC) [Mass/Vol] 32.2 g/dL 32-36 [facility] Mean platelet volume determi nationOrdered By: Joseph Lyman on 01-29-2025 Platelet mean volume (Bld) [Entitic vol] 11.0 fL 6.2-12.0 [facility] Monocyte percentageOrdered B y: Joseph Lyman on 01-29-2025 Monocytes/100 WBC (Bld) 14.5 % High 0-10 [facility] Neutrophil percentageOrdered By: Joseph Lyman on 01-29-2025 Neutrophils/100 WBC (Bld) 49.4 % 47-70 [facility] Nucleated red blood cell per centageOrdered By: Joseph Lyman on 01-29-2025 Nucleated RBC/100 WBC (Bld) [Ratio] 0 % 0-5 [facility] Platelet countOrdered By: Anand velezon Esmer on 01-29-2025 Platelets (Bld) [#/Vol] 162 10*3/uL 150-450 [facility] RBC Auto (Bld) [#/Vol]Ordere d By: Joseph Lyman on 01-29-2025 RBC (Bld) [#/Vol] 4.36 10*6/uL 4.2-5.4 [facility] White blood cell (WBC) count Ordered By: Joseph Lyman on 01-29-2025 WBC (Bld) [#/Vol] 4.5 10*3/uL 4.4-11.0 [facility] Echo Completeon 02-20-2024 Echo [facility] [address] [place] [address] Echo Complete 02/20/24 1310 MR#: [id number] Acct: [id number] Name: VENECIA KAUR Rep #: [id number] : 1950 74 From: Martin Perea MD [...] Date Dictated: 02/20/24 1310 Date Transcribed: 02/20/241548 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 [place] [address] OFFICE VISIT Date of Service: 01/30/24 MR#: [id number] Acct: [id number] Name: VENECIA KAUR Rep #: [id number] : 1950 Provider: ELVIA Cuevas Age/Sex: 74/F Location: [facility] Status: Signed HPI HPI History of [...] 95 Intake Visit Reasons: 1 Y FU Manager Video Required: No Is patient in pain?: No [...] normal to (more content not included)... Normal [facility] Basophil percentageOrdered B y: Dr. Alvarez on 10-18-2022 Chloride [Moles/Vol] 105 mmol/L 98-107 [facility] Cholesterol [Mass/Vol] 231 mg/dL <200 [facility] Comment on above: <200 mg/dL Desirable 200-240 mg/dL Borderline >240 mg/dL High Risk Glucose [Mass/Vol] 86 mg/dL 74-106 [facility] Potassium [Moles/Vol] 4.0 mmol/L 3.5-5.1 [facility] Sodium [Moles/Vol] 139 mmol/L 136-145 [facility] Triglyceride [Mass/Vol] 167 mg/dL <199 [facility] Comment on above: The drugs N-Acetylcy steine and Metamizole may falsely depress this assay.Serum Triglycerides Reference Interval Normal <150 mg/dL Borderline high 150 - 199 mg/dL High 200 - 499 mg/dL Very High > or = 500 mg/dL Laboratory - Chemistry and C hemistry - challengeOrdered By: Dr. Alvarez on 10-18-2022 CO2 [Moles/Vol] 27.0 mmol/L 21.0-32.0 [facility] Urea nitrogen/Creatinine [Mass ratio] 31.8 mg/mg 10-20 [facility] No Panel InformationOrdered By: Dr. Alvarez on 10-18-2022 Estimated GFR (MDRD) Amer 77 mL/min >60 [facility] Comment on above: GFR Calc Estimated GFR (MDRD) Non-Af Amer 64 mL/min >60 [facility] Comment on above: Non- GFR Calc Thyroid Stimulating Hormone (TSH) 2.50 uIU/mL 0.358-3.74 [facility] Serum or plasma calcium bryson urement (mass/volume)Ordered By: Dr. Alvarez on 10-18-2022 Calcium [Mass/Vol] 10.0 mg/dL 8.5-10.1 [facility] Serum or plasma cholesterol in HDL measurement (mass/volume)Ordered By: Dr. Alvarez on 10-18-2022 Cholesterol in HDL [Mass/Vol] 52 mg/dL >40 [facility] Comment on above: The drugs N-Acetylcy steine and Metamizole may falsely depress this assay. Reference Range HDL <40 mg/dL Low HDL Cholesterol HDL >or= 60 mg/dL High HDL Cholesterol Serum or plasma cholesterol in VLDL measurement (mass/volume)Ordered By: Dr. Alvarez on 10-18-2022 Cholesterol in VLDL [Mass/Vol] 33 mg/dL 5-40 [facility] Serum or plasma creatinine m easurement (mass/volume)Ordered By: Dr. Alvarez on 10-18-2022 Creatinine [Mass/Vol] 0.91 mg/dL 0.55-1.02 [facility] Comment on above: The validity of the calculated GFR & GFRAA in patients over 70 years has not been determined. Clinical correlation is essential. Serum or plasma low density lipoprotein (LDL) cholesterol measurement (mass/volume)Ordered By: Dr. Alvarez on 10-18-2022 Cholesterol in LDL [Mass/Vol] 146 mg/dL 0-130 [facility] Serum or plasma urea nitroge n measurement (mass/volume)Ordered By: Dr. Alvarez on 10-18-2022 Urea nitrogen [Mass/Vol] 29 mg/dL 7-18 [facility] Thin prep Papanicolaou smear with manual screeningOrdered By: Dr. Alvarez on 10-18-2022 Thin prep Papanicolaou smear with manual screening 7 5-15 [facility] Whole blood hemoglobin A1c/t otal hemoglobin ratio (mass fraction)Ordered By: Dr. Alvarez on 10-18-2022 HbA1c (Bld) [Mass fraction] 5.1 % 3.8-5.6 [facility] Comment on above: Normal < 5.7 % Predi abetic 5.7 - 6.4 % Diabetic >or= 6.5 % Please note range changes. Vital Signs Date Time Vital Sign Value Performing Clinician Danilo ramirez 01-29-2025 11:18-0400 Body height 149.86 cm Joseph Lyman MD Work Phone: [facility] 01-29-2025 11:18-0400 Body mass index (BMI) [Ratio] 27.8 kg/m2 Joseph Lyman MD Work Phone: [facility] 01-29-2025 11:18-0400 Body weight 62.59 kg Joseph Lyman MD Work Phone: [facility] 01-29-2025 11:18-0400 Diastolic blood pressure 84 mm[Hg] Joseph Lyman MD Work Phone: [facility] 01-29-2025 11:18-0400 Heart rate 62 /min Joseph Lyman MD Work Phone: [facility] 01-29-2025 11:18-0400 Respiratory rate 16 /min Joseph Lyman MD Work Phone: [facility] 01-29-2025 11:18-0400 Systolic blood pressure 132 mm[Hg] Joseph Lyman MD Work Phone: [facility] 01-10-2022 14:51-0400 Body height 149.[address] Ilda Alvarez Work Phone: [facility] Work Phone: 01-10-2022 14:51-0400 Body mass index (BMI) [Ratio] 27.2 kg/m2 Dr. Ilda Alvarez Work Phone: [facility] Work Phone: 01-10-2022 14:51-0400 Body weight 61.[address] Ilda Alvarez Work Phone: [facility] Work Phone: 01-10-2022 14:51-0400 Diastolic blood pressure 82 mm[Hg] Dr. Ilda Alvarez Work Phone: [facility] Work Phone: 01-10-2022 14:51-0400 Heart rate 80 /min Dr. Ilda Alvarez Work Phone: [facility] Work Phone: 01-10-2022 14:51-0400 Respiratory rate 18 /min Dr. Ilda Alvarez Work Phone: [facility] Work Phone: 01-10-2022 14:51-0400 SaO2% (BldA) [Mass fraction] 97 % Dr. Ilda Alvarez Work Phone: [facility] Work Phone: 01-10-2022 14:51-0400 Systolic blood pressure 123 mm[Hg] Dr. Ilda Alvarez Work Phone: [facility] Work Phone: Encounters Encounter Date Encounter Type Care Provider Facility Start: 01-29-2025 ambulatory Joseph Lyman Facility:[facility] Start: 01-29-2025 End: 01-29-2025 ambulatory Joseph Lyman MD Work Phone: -[facility] Start: 01-29-2025 End: 01-29-2025 Patient encounter procedure Marquita GAN -[facility] Work Phone: Start: 02-20-2024 ambulatory Martin Perea Facility:[facility] Start: 02-20-2024 End: 02-20-2024 ambulatory Marquita GAN Facility:[facility] Start: 01-30-2024 End: 01-30-2024 ambulatory Marquita GAN Facility:[facility] Start: 12-26-2022 End: 12-26-[address] Ilda Alvarez Work Phone: [facility] Work Phone: Start: 12-26-2022 End: 12-26-[address] Ilda Alvarez Work Phone: [facility]-Outpatient Breast [facility] Start: 10-25-2022 Non-patient / Non-visit Dr. Robin Alvarez Work Phone: [facility] Start: 10-25-2022 End: 10-25-[address] Ilda Alvarez Work Phone: [facility] Work Phone: Start: 10-25-2022 End: 10-25-2022 Patient encounter procedure [facility]-Cardiovascula r Services Start: 10-18-2022 End: 10-18-2022 ambulatory [facility] Work Phone: Start: 10-18-2022 End: 10-18-2022 Patient encounter procedure [facility] Start: 01-10-2022 End: 01-10-[address] Ilda Alavrez Work Phone: [facility] Start: 12-21-2021 End: 12-21-2021 Patient encounter procedure [facility]Outpatient [facility] Start: 09-21-2021 Registered Recurring [facility]-Physical Therapy Procedures Date Procedure Procedure Detail Performing Clinician Start: 12-26-2022 Screening mammography Rolando Alvarez Work Phone: Start: 12-21-2021 Screening mammography Plan of Treatment Date Care Activity Detail Author Start: 01-29-2025 Vitamin D, 25-hydroxy measurement [facility] Alanine aminotransfe rase [Enzymatic activity/volume] in Serum or Plasma [facility] Albumin [Mass/volume ] in Serum or Plasma [facility] Alkaline phosphatase [Enzymatic activity/volume] in Serum or Plasma [facility] Anion gap in Serum or Plasma [facility] Bilirubin, total measurement [facility] BUN/Creatinine ratio [facility] Calcium [Mass/volume ] in Serum or Plasma [facility] Carbon dioxide, tota l [Moles/volume] in Central venous blood [facility] Cholesterol [Mass/vo lume] in Serum or Plasma [facility] Cholesterol in HDL [ Mass/volume] in Serum or Plasma [facility] Creatinine [Mass/vol ume] in Serum or Plasma [facility] Glucose [Mass/volume ] in Serum or Plasma [facility] Low density lipoprot ein cholesterol measurement [facility] Measurement of renal function [facility] Potassium measurement [facility] Serum chloride measurement [facility] Sodium measurement [facility] Total cholesterol:HD L ratio measurement [facility] Total protein measurement [facility] Triglycerides measurement [facility] Urea nitrogen [Mass/ volume] in Serum or Plasma [facility] US Heart [facility] VLDL cholesterol measurement [facility] Immunizations Immunization Date Immunization Notes Care Provider Fa cility 10-13-2020 Covid (Pfizer) [facility] 09-22-2020 Covid (Pfizer) [facility] Payers Date Payer Category Payer Self-pay [id number] 2014 Unknown [id number] Medicare [id number] Unknown [id number] Unknown [id number] Unknown [id number] Unknown [id number] Social History Date Type Detail Facility Start: 11-03-2020 End: 01-10-2022 Tobacco smoking status NHIS Unknown if ever smoked [facility] Start: 1950 Sex Assigned At Female [facility] Start: 02-02-2023 Tobacco smoking stat us NHIS Never smoked tobacco (finding) [facility] Progress note 01-29-2025 Note Date & Type Note Facility 01-29-2025 Progress note [facility] Progress note 01-29-2025 Note Date & Type Note Facility 01-29-2025 Progress note Note Date/Time January 29, 2025 11:43am [facility] 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 Joseph Lyman MD ~ [place] [employer] Work Phone: Evaluation note 08-25-2009 Note Date & Type Note Facility 08-25-2009 Evaluation note Diagnosis Onset Date H/O aortic valve replacement August 25, 2009 resolved Thoracic aortic aneurysm (TAA) resolved [facility] Work Phone: Evaluation note 08-25-2009 Note Date & Type Note Facility 08-25-2009 Evaluation note Diagnosis Onset Date Resolution H/O aortic valve replacement August 25, 2009 resolved January 29, 2025 10:34am Thoracic aortic aneurysm (TAA) resolved January 29, 2025 10:34am [facility] Work Phone: Evaluation note Note Date & Type Note Facility Evaluation note No assessment information availa ble [facility] Work Phone: Reason for referral (narrative) Note Date & Type Note Facility Reason for referral (narrative) No reason for referral information available [place] [employer] Work Phone: Chief Complaint and Reason for Visit Chief Complaint R TRAP STRAIN.PT TO BRING RX SCREENING Chief Complaint SCREENING 9 M FU/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 Yes July 23, 2018 10:10am Advance Directives [...] Provider Active Start : January 29, 2025 Jospeh Lyman MD Referring Provider Active Start : [...] section and content) DATE CREATED AUTHOR 01/25/2025 [facility] FOR RECORDS PERTAINING TO PATIENTS [...] BE BASED ON THE PRIMARY CLINICAL RECORDS. [facility] [employer] provides no warranty or guarantee of the accuracy or completeness of information in this document.
== END | disposition home or self-care (01) ==
LOC: OPBI 12:34
PROVIDERS: PCP Family Medicine; Referring Provider Family Medicine; Visit Provider Family Medicine
DX: Z12.31 Encounter for screening mammogram for malignant neoplasm of breast (principal)
CPT/HCPCS: 77063; 77067

== ENCOUNTER → 2025-02-12 | Outpatient (CLI) | payer MEDICARE, SELFPAY ==
--- NOTE | 2025-02-12 09:34 | BI_ITS ---
EXAM: DIAG MAMM W/CAD, UNILAT; LT BRST UNILAT LAURENCE ADD ON; BREAST LIMITED UNILATERAL 02/12/2025 CLINICAL HISTORY: 75-YEAR-OLD female presents for follow-up of the left breast findings seen on examination of 12/21/2021. Family history of breast cancer in a maternal aunt at age 40. TECHNIQUE: DIAG MAMM W/CAD, UNILAT; LT BRST UNILAT LAURENCE ADD ON; BREAST LIMITED UNILATERAL. COMPARISON: Prior exam(s) dated 01/29/2025, 01/10/2024, 12/26/2022, 12/21/2021. FINDINGS: MAMMOGRAM: TISSUE DENSITY: The breasts are heterogeneously dense, which may obscure small masses. The mammogram demonstrates that the patient has dense breasts. Supplemental screening with whole breast ultrasound or MRI may be considered for further evaluation. Unilateral Right Breast Mammographic Findings: Follow-up examination performed for the asymmetry with associated distortion in the superior left breast on examination of 01/29/2025. On the present examination, the asymmetry with associated architectural distortion in the superior left breast does not persist. ULTRASOUND: Ultrasound performed of the superior left breast demonstrates no sonographic correlate. There are no suspicious solid masses or abnormal cystic elements. BI/DIAG MAMM W/CAD, UNILAT IMPRESSION: There is no evidence of malignancy in the left breast. OVERALL FINAL ASSESSMENT BI-RADS 1: NEGATIVE RECOMMENDATION: Routine annual follow-up in 1 Year A letter with findings and recommendations will be mailed to the patient. Reading Location: [id number]
--- NOTE | 2025-02-12 09:34 | BI_ITS ---
EXAM: DIAG MAMM W/CAD, UNILAT; LT BRST UNILAT LAURENCE ADD ON; BREAST LIMITED UNILATERAL 02/12/2025 CLINICAL HISTORY: 75-YEAR-OLD female presents for follow-up of the left breast findings seen on examination of 12/21/2021. Family history of breast cancer in a maternal aunt at age 40. TECHNIQUE: DIAG MAMM W/CAD, UNILAT; LT BRST UNILAT LAURENCE ADD ON; BREAST LIMITED UNILATERAL. COMPARISON: Prior exam(s) dated 01/29/2025, 01/10/2024, 12/26/2022, 12/21/2021. FINDINGS: MAMMOGRAM: TISSUE DENSITY: The breasts are heterogeneously dense, which may obscure small masses. The mammogram demonstrates that the patient has dense breasts. Supplemental screening with whole breast ultrasound or MRI may be considered for further evaluation. Unilateral Right Breast Mammographic Findings: Follow-up examination performed for the asymmetry with associated distortion in the superior left breast on examination of 01/29/2025. On the present examination, the asymmetry with associated architectural distortion in the superior left breast does not persist. ULTRASOUND: Ultrasound performed of the superior left breast demonstrates no sonographic correlate. There are no suspicious solid masses or abnormal cystic elements. BI/Lt Brst Unilat Laurence Add On IMPRESSION: There is no evidence of malignancy in the left breast. OVERALL FINAL ASSESSMENT BI-RADS 1: NEGATIVE RECOMMENDATION: Routine annual follow-up in 1 Year A letter with findings and recommendations will be mailed to the patient. Reading Location: [id number]
== END | disposition home or self-care (01) ==
PROVIDERS: PCP Family Medicine; Referring Provider Family Medicine; Visit Provider Family Medicine
DX: R92.8 Other abnormal and inconclusive findings on diagnostic imaging of breast (principal)
CPT/HCPCS: 76642; 77061; 77065; G0279

== ENCOUNTER → 2025-02-19 | Outpatient (CLI) | payer MEDICARE, SELFPAY ==
--- NOTE | 2025-02-19 15:48 | ECHOD_ITS ---
Reason For Study Reason For Study: VALVE REPLACEMENT EVAL Procedure This was a 2D Doppler, Color Flow transthoracic echocardiogram. Exam performed in department. Left Ventricle Normal LV size. Left ventricular systolic function is normal. The left ventricular ejection fraction is 60 %. Stage 1 diastolic dysfunction. No regional wall motion abnormalities noted. Right Ventricle Normal RV size. Normal systolic function. Atria Normal left atrium. Normal right atrium. Mitral Valve Normal mitral valve. Tricuspid Valve Normal tricuspid valve. Mild tricuspid valve insufficiency. Pulmonary artery systolic pressure is 29 mmHg. Aortic Valve Peak aortic valve gradient 16.6 mmHg. Mean aortic valve gradient 9 mmHg. Bioprosthetic aortic valve. Pulmonic Valve Normal pulmonic valve. Great Vessels Normal aortic root. The pulmonary artery is normal size. Normal inferior vena cava. Pericardium/Pleural No pericardial effusion. MMode/2D Measurements & Calculations LVIDd: 4.0 cm IVSd: 0.84 cm LVOT diam: 2.0 cm LVIDs: 2.5 cm LVPWd: 0.85 cm LVOT area: 3.0 cm2 FS: 36.4 % Ao root diam: 3.2 cm LAV(MOD-sp2): 34.0 ml LVAd ap4: 18.0 cm2 LVLd ap4: 6.6 cm EDV(MOD-sp4): 40.9 ml EDV(sp4-el): 42.1 ml LVAs ap4: 10.6 cm2 LVLs ap4: 5.5 cm ESV(MOD-sp4): 17.4 ml ESV(sp4-el): 17.3 ml EF(MOD-sp4): 57.4 % EF(sp4-el): 58.9 % LVAd ap2: 17.5 cm2 SV(MOD-sp4): 23.5 ml SV(MOD-sp2): 25.3 ml LVLd ap2: 6.5 cm SI(MOD-sp4): 15.2 ml/m2 SI(MOD-sp2): 16.4 ml/m2 EDV(MOD-sp2): 40.2 ml EDV(sp2-el): 40.0 ml LVAs ap2: 10.1 cm2 LVLs ap2: 5.8 cm ESV(MOD-sp2): 14.9 ml ESV(sp2-el): 15.1 ml EF(MOD-sp2): 63.0 % SV(sp4-el): 24.8 ml LA dimension(2D): 2.9 cm TAPSE: 1.8 cm Time Measurements MV dec time: 0.27 sec Doppler Measurements & Calculations MV E max noe: 68.8 cm/sec Lat Peak E' Noe: 10.8 cm/sec Med Peak E' Noe: 7.4 cm/sec MV A max noe: 89.5 cm/sec E/E' lat: 6.4 E/E' med: 9.3 MV E/A: 0.77 MV V2 max: 84.8 cm/sec MV P1/2t max noe: 68.6 cm/sec Ao V2 max: 203.8 cm/sec MV max P.9 mmHg MV P1/2t: 74.1 msec Ao max P.6 mmHg MV V2 mean: 47.4 cm/sec Ao V2 mean: 143.1 cm/sec MV mean P.0 mmHg MV dec slope: 271.0 cm/sec2 Ao mean P.9 mmHg MV V2 VTI: 20.9 cm MVA(P1/2t): 3.0 cm2 Ao V2 VTI: 39.6 cm AV (velocity ratio): 0.73 MVA(VTI): 4.1 cm2 KRISHAN(I,D): 2.2 cm2 KRISHAN(V,D): 2.2 cm2 LV V1 max: 152.6 cm/sec SV(LVOT): 86.6 ml PA V2 max: 115.9 cm/sec LV V1 max P.3 mmHg PA V2 mean: 69.6 cm/sec LV V1 mean P.1 mmHg LV V1 mean: 108.6 cm/sec LV V1 VTI: 28.8 cm TR max noe: 256.2 cm/sec TR max P.3 mmHg ECHO/Echo Complete Interpretation Summary Normal LV size. Left ventricular systolic function is normal. The left ventricular ejection fraction is 60 %. Stage 1 diastolic dysfunction. Pulmonary artery systolic pressure is 29 mmHg. Bioprosthetic aortic valve. Mean aortic valve gradient 9 mmHg. Ordering Physician: Marquita Chandra Referring Physician: Joseph Lyman Performed By: Caity Meadows, ELIZABETH, RVT
== END | disposition home or self-care (01) ==
LOC: CVS 15:46
PROVIDERS: PCP Family Medicine; Referring Provider Physician Assistant Medical; Visit Provider Physician Assistant Medical
DX: Z95.2 Presence of prosthetic heart valve (principal)
CPT/HCPCS: 93306